=== PATIENT | male | born 1940 ===

== ENCOUNTER 2016-10-22 20:00 | Inpatient (IN) ==
--- OUTSIDE RECORDS SUMMARY | 2016-10-22 22:43 | External Medical Summary | Continuity of Care Document ---
:1940 Author Organization [facility] Allergies Active Description Code Type Severity Reaction Onset Reported/ Identified Relationship Clinical to Patient Status Yes Codeine Drug Nausea 07/25/2011 Aller gy Yes Penicillins Drug Eczema 07/25/2011 Aller (rash) gy Yes codeine NKMA N/A Nausea 09/16/2013 Yes penicillin NKMA N/A Eczema 09/16/2013 (rash) Yes codeine codei Drug Severe NAUSEA/ 10/23/2014 ne Aller HEADACHE gy Yes aspirin aspir Drug Unknown UNKNOWN 07/15/2016 in Aller gy Yes Penicillins Penic Drug Unknown UNKNOWN 07/15/2016 illin Aller s gy Medications Problems Date Dx Coded Attending Type Code Diagnosis Diagnosed By 03/25/2012 Guera Zarate DO Final 272.4 HYPERLIPIDEMIA NEC NOS R 03/25/2012 Guera Zarate DO Final 276.51 DEHYDRATION R 03/25/2012 Guera Zarate DO Final 311 DEPRESSIVE DISORDER NEC R 03/25/2012 Guera Zarate DO Final 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 03/25/2012 Guera Zarate DO Final 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 03/25/2012 Guera Zarate DO Final 414.01 COR -RED CLIFF VESSEL R 03/25/2012 Guera Zarate DO Final 458.0 ORTHOSTATIC HYPOTENSION R 03/25/2012 Guera Zarate DO Final 530.81 ESOPHAGEAL REFLUX R 03/25/2012 Guera Zarate DO Final 781.2 ABNORMALITY OF GAIT R 01/07/2015 Neeraj Ortega MD Final 162.9 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, UNSPECIFIED 01/07/2015 Neeraj Ortega MD Final V72.63 Pre-Procedural Laboratory E Examination 01/07/2015 Neeraj Ortega MD Reason V72.81 PREOPERATIVE E CARDIOVASCULAR EXAMINATION 01/19/2015 Neeraj Ortega MD Final 162.9 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, UNSPECIFIED 01/19/2015 Neeraj Ortega MD Final 285.1 ACUTE POSTHEMORRHAGIC E ANEMIA 01/19/2015 Neeraj Ortega MD Final 298.9 UNSPECIFIED PSYCHOSIS E 01/19/2015 Neeraj Ortega MD Final 338.29 Other chronic pain E 01/19/2015 Neeraj Ortega MD Final 401.9 UNSPECIFIED ESSENTIAL E HYPERTENSION 01/19/2015 Neeraj Ortega MD Final 458.9 HYPOTENSION, UNSPECIFIED E 01/19/2015 Neeraj Ortega MD Final 724.5 BACKACHE, UNSPECIFIED E 01/19/2015 Neeraj Ortega MD Final E937.8 OTHER SEDATIVES AND E HYPNOTICS CAUSING ADVERSE EFFECTS IN THERAPEUTIC USE 03/15/2015 Reason 162.9 MALIGNANT NEOPLASM OF BRONCHUS AND LUNG, UNSPECIFIED 03/15/2015 Final 272.4 OTHER AND UNSPECIFIED HYPERLIPIDEMIA 03/15/2015 Final 294.20 Dementia, Unspecified, in Conditions Classified Elsewhere without Behaviora 03/15/2015 Final 311 DEPRESSIVE DISORDER, NOT ELSEWHERE CLASSIFIED 03/15/2015 Final 345.90 EPILEPSY, UNSPECIFIED, WITHOUT MENTION OF INTRACTABLE EPILEPSY 03/15/2015 Final 401.9 UNSPECIFIED ESSENTIAL HYPERTENSION 03/15/2015 Final 414.01 CORONARY ATHEROSCLEROSIS OF [place] CORONARY ARTERY 03/15/2015 Final 530.81 ESOPHAGEAL REFLUX 03/07/2016 Chris ACOSTA, Dayday V A C34.11 MALIGNANT NEOPLASM OF UPPER LOBE, RIGHT 03/07/2016 Chris ACOSTA, Dayday V A C34.11 MALIGNANT NEOPLASM OF UPPER LOBE, RIGHT 09/08/2016 Chris ACOSTA, Dayday V A C34.11 MALIGNANT NEOPLASM OF UPPER LOBE, RIGHT 09/08/2016 Chris ACOSTA, Dyaday V A C34.11 MALIGNANT NEOPLASM OF UPPER LOBE, RIGHT Procedures Code Description Performed By Performed On 33.24 ENDOSCOPIC BRONCHIAL BX Acosta Overton MD 2014 33.27 CLOSED ENDOSCOPIC BIOPSY OF LUNG Acosta Overton MD 2014 40.11 Biopsy of lymphatic structure 01/09/2015 91098 Insertion of tunneled centrally inserted central 02/14/2015 venous access device, with Results Test Result Range FLUID CYTOLOGY - 10/25/14 08:35 FLUID CYTOLOGY SPECIMEN RECEIVED FLUID CYTOLOGY - 10/25/14 08:35 FLUID CYTOLOGY SPECIMEN RECEIVED GRAM STAIN - 10/25/14 08:35 Microbiology AFB SMEAR - 10/25/14 08:35 Microbiology FUNGUS SMEAR - 10/25/14 08:35 Microbiology CBC W/DIFF - 07/15/16 18:02 BASOPHIL # 0.1 k/cumm 0.0-0.2 BASOPHIL % 1 % 0-1 EOSINOPHIL # 0.1 k/cumm 0.1-0.5 EOSINOPHIL % 1 % 2-4 GRANULOCYTE # 4.5 k/cumm 2.0-9.0 GRANULOCYTE % 50 % 50-75 LYMPHOCYTE # 3.3 k/cumm 1.0-4.0 LYMPHOCYTE % 37 % 20-30 MEAN CELL HGB 32.5 pg 27.0-33.0 MEAN CELL HGB CONCENTRATION 33.0 g/dL 32.0-37.0 MEAN CELL VOLUME 98.3 fl 80.0-100.0 MONOCYTE # 0.9 k/cumm 0.1-1.0 MONOCYTE % 11 % 4-6 RED BLOOD CELL 4.59 m/cumm 4.00-6.00 RED CELL DISTRIBUTION WIDTH 12.4 % 11.0-15.6 WHITE BLOOD CELL 8.9 k/cumm 5.0-10.0 HEMOGLOBIN 14.9 gm/dL 14.0-18.0 HEMATOCRIT 45.1 % 40.0-54.0 PLATELET COUNT 355 k/cumm 150-400 METABOLIC PANEL, BASIC - 07/15/16 18:02 POTASSIUM 3.8 mmol/L 3.5-5.3 EST GFR (MDRD) 42 mL/min > 59 ANION GAP 22 mmol/L 5-15 GLUCOSE 174 mg/dL 70-99 CALCIUM 9.1 mg/dL 8.5-10.1 BLOOD UREA NITROGEN 13 mg/dL 7-20 CREATININE 1.6 mg/dL 0.7-1.3 SODIUM 139 mmol/L 135-148 CHLORIDE 100 mmol/L 98-110 CARBON DIOXIDE 17 mmol/L 21-32 Encounters ACCT No. Visit Discharge Status Pt. Type Provider Facility Loc./Unit Complaint Date/Time [id number] 03/22/2012 03/27/2012 DIS Inpatient [facility] 13:17:00 16:30:00 DO [facility]
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
--- OUTSIDE RECORDS SUMMARY | 2016-10-22 22:43 | External Medical Summary ---
:1940 Author Organization [facility] Address [address] [place] [id number] Care Team Providers Name Role Phone Abdulaziz Price Unavailable Unavailable PROBLEMS Type Condition ICD9-CM Code [id number] Code Onset Condition SNOMED Code Dates Status Problem Esophageal R13.14 Active 21007930 dysphagia Assessment Esophageal R13.14 September, [id number] dysphagia 2017 ALLERGIES Substance Reaction Event Type Date Status Aspirin Unknown Drug Allergy September, Active SOCIAL HISTORY No smoking Hx information available PLAN OF CARE VITAL SIGNS Weight 168.2 lbs 2016-09-30 Heart Rate 68 /min 2016-09-30 Respiratory Rate 16 /min 2016-09-30 Blood pressure systolic 130 mm Hg 2016-09-30 Blood pressure diastolic 74 mm Hg 2016-09-30 MEDICATIONS Medication Instructions Dosage Frequency Start End Duration Status Date Date Omeprazole 20 MG Orally Once a 1 capsule 24h Active day Fish Oil 1000 MG Orally Once a 1 capsule 24h Active day Vitamin B12 100 Orally Once a 1/2 tablet 24h Active MCG day Lamotrigine 100 Orally Twice a 1 tablet 12h Active MG day Vitamin D 400 Orally Once a 3 capsules 24h Active UNIT day Aspirin 81 MG Orally Once a 1 tablet 24h Active day Oxycodone-Acetami Orally three 1 tablet Active nophen 10-325 MG times daily Simvastatin 40 MG Orally Once a 1 tablet in 24h Active day the evening Escitalopram Orally Once a 1 tablet 24h Active Oxalate 20 MG day Donepezil Orally Once a 1 tablet at 24h Active Hydrochloride 10 day bedtime MG RESULTS No Results PROCEDURES Procedure Date Ordered Related Diagnosis Body Site Office Visit, New Pt., Level 5 September 30, 2016 IMMUNIZATIONS No Known Immunizations
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
--- OUTSIDE RECORDS SUMMARY | 2016-10-22 22:44 | External Medical Summary | Referral Summary ---
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, moderate Discharge Disposition: Home or Self Care Attending Physician: Acosta Overton MD Admitting Physician: Acosta Overton MD Vital Signs Most recent to oldest [Reference Range]: 1 Temperature Tympanic [36.6-38.1 degC] 36.8 degC (09/06/14 3:29 PM) Peripheral Pulse Rate [60-100 bpm] 67 bpm (09/06/14 3:29 PM) Respiratory Rate [14-20 br/min] 18 br/min (09/06/14 3:29 PM) Blood Pressure [90-140/60-90 mmHg] 130/70mmHg (09/06/14 3:29 PM) Most recent to oldest [Reference Range]: 1 SpO2 95 % (09/06/14 3:29 PM) Problem List Condition Effective Dates Status Health Status Informant Acute pain(Confirmed) Active Fluid volume deficit(Confirmed)1 Active Ineffective coping Active (individual)(Confirmed)2 Knowledge deficit(Confirmed)3 Active Tissue perfusion Active alteration(Confirmed)4 1Problem added automatically by system based on initiation of Fluid Deficit Plan of Dpkp8Vbywwqh added automatically by system based on initiation of Ineffective Coping Plan of Bqeh4Xqnsyfu added automatically by system based on initiation of Knowledge Deficit Plan of Bgdb7Epxkmgs added automatically by system based on initiation of Tissue Perfusion Cerebral Plan of Care Allergies, Adverse Reactions, Alerts Substance Reaction Severity Status codeine Nausea Active penicillin Eczema (rash) Active Medications alendronate weekly 70 mg, Oral, Thursday, 0 Refill(s) Start Date: 12/01/13 Status: OrderedAricept 10 mg, Oral, Bedtime (once a day), 0 Refill(s) Start Date: 12/01/13 Status: OrderedAspirin Low Dose 81 mg, Oral, Daily, 0 Refill(s) Start Date: 01/31/14 Status: Orderedbudesonide 0.5 mg/2 mL inhalation suspension 2 mL, NEB, BID, # 120 mL, 0 Refill(s) Start Date: 09/06/14 Status: OrderedFish Oil 1,000 mg, Oral, With Lunch, 0 Refill(s) Start Date: 10/21/13 Status: Orderedgabapentin 100 mg, Oral, With BKFT and Dinner, 0 Refill(s) Start Date: 12/01/13 Status: OrderedHome Oxygen (DME) DME Item O2 at 2LPM nocturnal. Diana, See Instructions, # 1 Each, 0 Refill(s) , Supply Special Instructions: O2 at 2LPM nocturnal. [facility] Start Date: 01/31/14 Status: Orderedipratropium See Instructions, ipratopium bromide 0.5mg and albuterol sulfate 3mg., 0 Refill( s) Special Instructions: ipratopium bromide 0.5mg and albuterol sulfate 3mg. Start Date: 09/06/14 Status: OrderedlamoTRIgine 100 mg, Oral, With BKFT and Dinner, 0 Refill(s) Start Date: 12/01/13 Status: OrderedLevaquin 500 mg oral tablet 1 tabs, Oral, q24hr, X 10 days, # 10 tabs, 0 Refill(s), Pharmacy: [facility], 1 tabs Oral q24hr,x10 days Start Date: 09/06/14 Stop Date: 09/16/14 Status: OrderedLexapro 20 mg, Oral, With Lunch, 0 Refill(s) Start Date: 12/01/13 Status: Orderedomeprazole 40 mg, Oral, With Lunch, 0 Refill(s) Start Date: 12/01/13 Status: OrderedPercocet 10/325 1 tabs, Oral, BID, Pain Severe (7-10), 0 Refill(s) Start Date: 12/01/13 Status: OrderedVitamin D3 Oral, 0 Refill(s) Start Date: 01/31/14 Status: OrderedZyPREXA 2.5 mg, Oral, Bedtime (once a day), 0 Refill(s) Start Date: 12/01/13 Status: Ordered Results No data available for this section Immunizations No data available for this section Procedures Procedure Date Related Diagnosis Body Site Back1 Catheterization2 1surgery [id number] cath in 2011 Social History Social History Type Response Smoking Status Former smoker; Type: Cigarettes; Tobacco use per day: Pack; Number of years: 651 1Quit October 2013. Smoked 1/2 to 1 PPD for 65 years. Assessment and Plan Extracted from: Title:Office Visit Note Author:Acosta Overton MD Date:09/06/14 Assessment/Plan 1.COPD, moderate Ordered: Office Visit Level 4 Est 40135 2.Calcified granuloma of lung Ordered: Office Visit Level 4 Est 75175 3.Atelectasis Ordered: Office Visit Level 4 Est 04892 4.Nocturnal hypoxemia Ordered: Office Visit Level 4 Est 02227 Orders: levofloxacin, 1 tabs, Oral, q24hr, X 10 days, # 10 tabs, 0 Refill(s), Pharmacy: [facility], 1 tabs Oral q24hr,x10 days I've recommended course of antibiotics Levaquin for 10 days and a repeat chest x-ray to reassess the atelectasis. He is to continue his current respiratory treatments. I will see him back in the pulmonary medicine clinic in 6 weeks with a chest x-ray.
--- OUTSIDE RECORDS SUMMARY | 2016-10-22 22:44 | External Medical Summary | Referral Summary ---
:1940 Author Organization [facility] Address [address] [place] [address] Care Team Providers Name Role Phone Stacey Esparza Primary Care Physician Encounter [facility] [id number] Date(s): 01/09/15 - 01/14/15 [facility] [address] [place] [address] Final: MALIGNANT NEOPLASM OF BRONCHUS AND LUNG, UNSPECIFIED Final: ACUTE POSTHEMORRHAGIC ANEMIA Final: UNSPECIFIED PSYCHOSIS Final: UNSPECIFIED ESSENTIAL HYPERTENSION Final: HYPOTENSION, UNSPECIFIED Final: BACKACHE, UNSPECIFIED Final: Other chronic pain Final: OTHER SEDATIVES AND HYPNOTICS CAUSING ADVERSE EFFECTS IN THERAPEUTIC USE Discharge Diagnosis: Squamous cell lung cancer Discharge Disposition: 01-Home or Self Care Attending Physician: Neeraj Ortega MD Admitting Physician: Neeraj Ortega MD Vital Signs Most recent to oldest [Reference Range]: 1 Temperature Oral [35.8-37.3 degC] 36.5 degC (01/14/15 12:00 PM) Temperature Tympanic [36.6-38.1 degC] 36.5 degC *LOW* (01/09/15 7:19 AM) Temperature Skin [36-37 degC] 36.1 degC (01/09/15 1:06 PM) Temperature Temporal Artery [36.3-37.8 degC] 36.5 degC (01/12/15 4:00 PM) Peripheral Pulse Rate [60-100 bpm] 70 bpm (01/14/15 12:00 PM) Heart Rate Monitored [60-100 bpm] 74 bpm (01/12/15 5:15 PM) Respiratory Rate [14-20 br/min] 18 br/min (01/14/15 11:00 AM) Blood Pressure [90-140/60-90 mmHg] 114/82mmHg (01/14/15 12:00 PM) Mean Arterial Pressure, Cuff 107 mmHg (01/12/15 5:15 PM) Blood Pressure Invasive [90-140/60-90 mmHg] 93/55mmHg (01/09/15 5:00 PM) Mean Arterial Pressure, Invasive 45 mmHg (01/09/15 6:00 PM) SpO2 91 % (01/14/15 12:00 PM) Problem List Condition Effective Dates Status [...] At Risk for Activity Intolerance Plan of Wmaa6Gguckps added automatically by system based on initiation of Fluid Deficit Plan of Hvdp8Spvgqzz added automatically by system based on initiation of Impaired Gas Exchange Plan of Czwp2Rpevtgf added automatically by system based on initiation of Impaired Skin Integrity Plan of Xlkt7Wybkwcj added automatically by system based on initiation of Ineffective Coping Plan of Dmzy4Ehrmzsh added automatically by system based on initiation of Knowledge Deficit Plan of Eimm9Stbcqbs added automatically by system based on initiation [...] oldest [Reference Range]: 1 WBC [4.8-10.8 10*3/uL] 8.2 10*3/uL (01/14/15 7:34 AM) RBC [4.60-6.20] 3.80 *LOW* (01/14/15 7:34 AM) Hgb [14.0-18.0 gm/dL] 12.3 gm/dL *LOW* (01/14/15 7:34 AM) Hct [42.0-52.0 %] 36.9 % *LOW* (01/14/15 7:34 AM) MCV [82.0-99.0 fL] 97.1 fL (01/14/15 7:34 AM) MCH [27.0-32.0 pg] 32.4 pg *HI* (01/14/15 7:34 AM) MCHC [32.0-36.0 gm/dL] 33.3 gm/dL (01/14/15 7:34 AM) RDW [11.5-14.5 %] 12.0 % (01/14/15 7:34 AM) Platelet [150-400 10*3/uL] 347 10*3/uL (01/14/15 7:34 AM) MPV [9.4-12.3 fL] 9.5 fL (01/14/15 7:34 AM) Chemistry Most recent to oldest [Reference Range]: 1 Sodium Lvl [136-144 mEq/L] 136 mEq/L (01/14/15 7:34 AM) Potassium Lvl [3.6-5.1 mEq/L] 4.0 mEq/L1 (01/14/15 7:34 AM) Chloride [99-109 mEq/L] 100 mEq/L (01/14/15 7:34 AM) CO2 [22-32 mEq/L] 27 mEq/L (01/14/15 7:34 AM) AGAP [3-20] 9 (01/14/15 7:34 AM) BUN [4-20 mg/dL] 13 mg/dL (01/14/15 7:34 AM) Glucose Lvl [70-100 mg/dL] 126 mg/dL *HI* (01/14/15 7:34 AM) Creatinine Lvl [0.64-1.27 mg/dL] 1.02 mg/dL (01/14/15 7:34 AM) eGFR [>60] >602 (01/14/15 7:34 AM) Calcium Lvl [8.6-10.0 mg/dL] 8.9 mg/dL (01/14/15 7:34 AM) Blood Glucose, Capillary [70-100 mg/dL] 89 mg/dL (01/09/15 7:15 AM) 1Result Comment: Hemolyzed specimen. The following test may be affected: Potassium.2Result Comment: Multiply eGFR results by 1.21 for race. Immunizations No data available for this section Procedures Procedure Date Related Diagnosis Body Site Insertion Implantable Venous Access Port1 02/14/15 Thoracoscopy2 01/09/15 arm trauma3 Back4 Biopsy of lymph node Catheterization5 neck surgery6 right knee surgery7 1auto-populated from documented surgical rduq2qdmx-rvwwexupo from documented surgical avuf6gsl attack and trauma to right arm and had two surgeries and good pkgact2ijpzpfs L73tzmyl cath in [id number] has JVS5effex Social History Social History Type Response Smoking Status Former smoker; Type: Cigarettes; Tobacco use per day: Pack; Number of years: 651 1Quit October 2013. Smoked 1/2 to 1 PPD for 65 years. Assessment and Plan No data available for this section
--- OUTSIDE RECORDS SUMMARY | 2016-10-22 22:44 | External Medical Summary | Continuity of Care Document ---
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 Family History Family Member Diagnosis Age At Onset Status Unknown Social History Social History Element Description Quantity Unknown Allergies, Adverse Reactions, Alerts Substance Reaction Severity Status Unknown Medications Medication Instructions Dosage Effective Dates (start Status - stop) oxycodone-acetaminophen take 1 capsule by oral 0 - Active 5 mg-500 mg capsule route every 6 hours as needed diazepam 5 mg/mL Oral take 1 milliliter (5MG) 5 MG - Active Concentrate by oral route 2 times every day as needed citalopram 40 mg tablet take 1 tablet (40MG) by 40 MG - Active oral route every day simvastatin 40 mg tablet take 1 Tablet (40MG) by 40 MG - Active oral route every day in the evening Immunizations Vaccine Date Status Comments Unknown Results Test Name Date and Time Measure Units Reference Range Abnormal Flag Comments Unknown Vital Signs Date / Time: Height Weight Pulse Rate Blood Pressure Temperature Unknown Procedures Procedure Date Unknown Encounters Encounter Location Date Patient Visit [facility] Patient Visit [facility] Patient Visit [facility] Advance Directives Directive Effective Date Unknown
--- OUTSIDE RECORDS SUMMARY | 2016-10-22 22:44 | External Medical Summary | Referral Summary ---
:1940 Author Organization [facility] Address [address] [place] [address] Care Team Providers Name Role Phone Melaniemarce Stacey Ca Primary Care Physician Encounter [facility] Date(s): 10/11/14 - 10/11/14 [facility] [address] [place] [address]- [place] Discharge Diagnosis: Cough Discharge [...] At Risk for Activity Intolerance Plan of Gclp1Uujbgsy added automatically by system based on initiation of Fluid Deficit Plan of Qlnu0Rvtgbzj added automatically by system based on initiation of Impaired Gas Exchange Plan of Aeaq3Kqxoggg added automatically by system based on initiation of Impaired Skin Integrity Plan of Bpto5Nlnqmyt added automatically by system based on initiation of Ineffective Coping Plan of Xqqv4Nmlpmkt added automatically by system based on initiation of Knowledge Deficit Plan of Rvaj4Cmzgrum added automatically by system based on initiation [...] Daily, 0 Refill(s) Start Date: 01/04/15 Status: OrderedoxyCODONE-acetaminophen 10 mg-325 mg oral tablet 1-2 tabs, Oral, q4hr, Pain Severe (7-10), # 40 tabs, 0 Refill(s) Start Date: 01/14/15 Stop Date: 04/16/15 Status: OrderedProtonix 40 mg oral delayed release [...] right knee surgery7 1auto-populated from documented surgical aavy2peqt-dwjzfwjvg from documented surgical wkxi7jwo attack and trauma to right arm and had two surgeries and good ntwgvo0asykejt O90ioywf cath in [id number] has GQU6jmjfe Social History Social History Type Response Smoking [...]
--- OUTSIDE RECORDS SUMMARY | 2016-10-22 22:44 | External Medical Summary | Referral Summary ---
:1940 Author Organization [facility] Address [address] [place] [address] Care Team Providers Name Role Phone MelaniemarceStacey Primary Care Physician Encounter [facility] Date(s): 10/31/14 - 10/31/14 [facility] [address] [place] [address]- [place] Discharge Diagnosis: Smoking history Discharge Diagnosis: COPD, moderate Discharge Diagnosis: Squamous cell lung cancer Discharge Disposition: 01-Home or Self Care Attending Physician: Acosta Overton MD Admitting Physician: Acosta Overton MD Vital Signs Most recent to oldest [Reference Range]: 1 Peripheral Pulse Rate [60-100 bpm] 70 bpm (10/31/14 3:00 PM) Respiratory Rate [14-20 br/min] 20 br/min (10/31/14 3:00 PM) Blood Pressure [90-140/60-90 mmHg] 120/60mmHg (10/31/14 3:00 PM) SpO2 94 % (10/31/14 3:00 PM) Problem List Condition Effective Dates Status [...] At Risk for Activity Intolerance Plan of Rgts0Gempapt added automatically by system based on initiation of Fluid Deficit Plan of Txsk7Mzyjwus added automatically by system based on initiation of Impaired Gas Exchange Plan of Ohiz2Jbkwksn added automatically by system based on initiation of Impaired Skin Integrity Plan of Doim4Ofgiogz added automatically by system based on initiation of Ineffective Coping Plan of Ebfl5Knieasu added automatically by system based on initiation of Knowledge Deficit Plan of Fyls9Igwihaj added automatically by system based on initiation [...] right knee surgery7 1auto-populated from documented surgical ammk7axbj-xgbexgjmr from documented surgical ktyl4gqm attack and trauma to right arm and had two surgeries and good bcrhhg1gpiwfos Q54ayelp cath in [id number] has DNM1rbtfj Social History Social History Type Response Smoking Status Former smoker; Type: Cigarettes; Tobacco use per day: Pack; Number of years: 651 1Quit October 2013. Smoked 1/2 to 1 PPD for 65 years. Assessment and Plan Extracted from: Title:Office Visit Note Author:Acosta Overton MD Date:11/02/14 Assessment/Plan 1.Squamous cell lung cancer 2.Smoking history 3.COPD, moderate I've recommended further evaluation to include a PET scan to assess the extent of the patient's cancer. Following the PET scan we will considersurgical evaluation and/or oncology evaluation. Reid guzmán did state that he would prefer not to receive chemotherapy if possible however we we'll discuss this further following his PET scan.
--- OUTSIDE RECORDS SUMMARY | 2016-10-22 22:44 | External Medical Summary | Continuity of Care Document ---
:1940 Author Organization Ambulatory Address [address] [place] [address] Payers Payer name Insurance type Covered libertarian ID Authorization(s) Unknown Problems Condition Effective Dates [...] Unknown Encounters Encounter Location Date Patient Visit [facility] Patient Visit [facility] Patient Visit [facility] Advance Directives Directive Effective Date Unknown
--- OUTSIDE RECORDS SUMMARY | 2016-10-22 22:44 | External Medical Summary | Referral Summary ---
:1940 Author Organization [facility] Address [address] [place] [address] Care Team Providers Name Role Phone Stacey Esparza Primary Care Physician Encounter [facility] [id number] Date(s): 02/14/15 - 02/14/15 [facility] [address] [place] [address] [place] Discharge Disposition: 01-Home or Self Care Attending [...] At Risk for Activity Intolerance Plan of Igqn6Pfyxxxy added automatically by system based on initiation of Fluid Deficit Plan of Syfs0Gfpiimp added automatically by system based on initiation of Impaired Gas Exchange Plan of Wkjk7Qgicijn added automatically by system based on initiation of Impaired Skin Integrity Plan of Gxdp8Azowcyq added automatically by system based on initiation of Ineffective Coping Plan of Mcxi5Elfaqdy added automatically by system based on initiation of Knowledge Deficit Plan of Ycfl0Fjtdwrw added automatically by system based on initiation [...] right knee surgery7 1auto-populated from documented surgical ivao1ndag-twaoglsvv from documented surgical jdxf8wme attack and trauma to right arm and had two surgeries and good wqmbyv6abqiogu D97bxsge cath in [id number] has GGZ2dxmxp Social History Social History Type Response Smoking Status Former smoker; Type: Cigarettes; Tobacco use per day: Pack; Number of years: 651 1Quit October 2013. Smoked 1/2 to 1 PPD for 65 years. Assessment and Plan No data available for this section
[2016-10-23 01:07] VITALS: BMI 23.8
[2016-10-23] MEDS: OMEPRAZOLE 20 MG CAPSULE PO SCH (07:21)
[2016-10-23] MEDS: BUDESONIDE INH.SOLN 0.5mg/2ml NEB IH SCH ×3 (07:25→18:50)
[2016-10-23] MEDS: OMEGA-3 ACID ESTERS 1 GM CAPSULE PO SCH (09:00)
[2016-10-23] MEDS: LAMOTRIGINE 100 MG TABLET PO SCH ×2 (09:00→21:06)
[2016-10-23] MEDS: ESCITALOPRAM 20 MG TABLET PO SCH (09:00)
[2016-10-23] MEDS: CYANOCOBALAMIN (B-12) 500mcg TABLET PO SCH (09:01)
[2016-10-23] MEDS: ASPIRIN 81 MG CHEWABLE TABLET PO SCH (09:06)
[2016-10-23] MEDS: MULTI-VITAMIN + MINERAL TABLET PO SCH (09:26)
[2016-10-23] MEDS: ALBUTEROL/IPRATROPIUM 2.5mg-0.5mg/3ml NEB AEROSOL SCH ×4 (11:03→18:50)
--- NOTE | 2016-10-23 15:30 | History & Physical Report ---
<Clau Huerta Anthony - Last Filed: 10/23/16 15:26> History of Present Illness Date: Chief complaint: suicidal ideation HPI: Victor Manuel Raygoza is a 75 y/o male with a hx of dementia, depression, seizure d/o (frequency has been increasing - 2 sz in a week and has had about 4 seizures in the last 3 months), lung cancer, and CAD who was admitted to [facility] on because he has been making suicidal and morbid statements. [place] police, and PD decided to take him home. However, on the way he had a seizure, and then he was transported to [facility], where he was admitted. There his CT of his head was negative; an MRI was ordered, which was negative for stroke; positive for mild atrophy and modereate small vessel ischemic disease; mild b/l mastoid effusions.. Hgb was 11.8. He had mild hypokalemia (K 3.2) and mild KADEN (cr 1.6), both of which resolved. Psychiatric evaluation was recommended, thus he was dismissed from [facility] and admitted to [facility]. I saw Mr. Raygoza in the afternoon of 10/23. His was also present, and she provided most of his history and HPI. Victor Manuel did not speak much, and at times seemed to have trouble following the conversation. She reports that he's had poor oral intake lately. He's had abdominal pain and vomiting and diarrhea. He' s lost some weight. He states that he's been weak and dizzy. No reports of chest pain,cough, fevers, or shortness of breath. His states that he "dribbles" and thinks his prostate is swollen. No leg swelling. He has a small cut on his right forearm that occurred either during the seizure or sometime afterwards - a dressing has been applied. Review of Systems ROS unobtainable: due to mental status All systems: reviewed and no additional remarkable complaints except as stated - Constitutional Constitutional: Present: as per HPI - EENMT Nose: Absent: obstruction Mouth/Throat: Absent: sore throat - Cardiovascular Cardiovascular: Absent: chest pain Vascular: Absent: pedal edema - Respiratory Respiratory: Absent: cough, dyspnea - Gastrointestinal Gastrointestinal: Present: as per HPI, abdominal pain, diarrhea, vomiting - Musculoskeletal Musculoskeletal: Present: back pain - Neurological Neurological: Present: as per HPI, confusion, convulsions. 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 Went for surgery to remove lung cancer but it had spread to lymph nodes so surgery was aborted. knee arthroscopy. hand surgery. appendectomy. cataract surgery. lumbar laminectomy. cervical discectomy. kyphoplasty. skin cancer removed from ear Family History: Mother had an unknown form of cancer. Records from [facility] also report CAD and dementia. Father - unknown - Social History Smoking status: Former smoker (60 years - 0.5-1 ppd) Substance use type: does not use Alcohol intake frequency: does not drink Social history: PCP - Dr. Luciana Esparza Neuro - Dr. Berrios Medications Home Medications Medication Instructions Recorded Confirmed Type Acetaminophen 650 mg PO Q6H PRN 10/22/16 10/22/16 History Albuterol/Ipratropium [Duoneb] 1 unit AEROSOL QID 10/22/16 10/22/16 History Aspirin Chewable [ASA] 81 mg PO DAILY 10/22/16 10/22/16 History Budesonide 0.5 mg IH BID 10/22/16 10/22/16 History Cyanocobalamin (B-12) [Vit B-12] 500 mcg PO DAILY 10/22/16 10/22/16 History Donepezil [Aricept] 10 mg PO HS 10/22/16 10/22/16 History Escitalopram [Lexapro] 20 mg PO DAILY 10/22/16 10/22/16 History Lamotrigine [Lamictal] 1 tab PO BID 10/22/16 10/22/16 History Multi-Vitamin + Mineral 1 tab PO DAILY 10/22/16 10/22/16 History [Therapeutic - M] [place]-3/Dha/Epa/Fish Oil [[place]-3 1,000 mg PO DAILY 10/22/16 10/22/16 History Fish Oil 1,000 mg Sfgl] Omeprazole [Prilosec] 1 cap PO ACB 10/22/16 10/22/16 History Oxycodone HCl 10 mg PO TID PRN 10/22/16 10/22/16 History Simvastatin [Zocor] 40 mg PO HS 10/22/16 10/22/16 History Allergies Allergy/AdvReac Type Severity Reaction Status Date / Time aspirin AdvReac Mild Nausea Verified 10/23/16 02:19 codeine AdvReac Unknown Nausea Verified 10/23/16 02:20 Exam Vital Signs: Temp Pulse Resp BP Pulse Ox 98.2 F 75 16 179/78 H 98 10/23/16 13:14 10/23/16 13:14 10/23/16 15:00 10/23/16 08:00 10/23/16 15:00 Height: 1.75 m Weight: 73.4 kg Body Mass Index: 23.8 - Constitutional Present: no acute distress, well nourished, well developed, thin - Routine HEENT Exam Head: Present: normocephalic, atraumatic Eye: Present: PERRL. Absent: conjunctival icterus, scleral injection ENT: Present: mucous membranes moist, dentition normal - Routine Neck Exam Present: supple - Routine Respiratory Exam Present: CTA bilaterally - Routine Cardiovascular Exam Present: S1, S2 - Routine Abdominal Exam Present: soft, normoactive bowel sounds, non distended, non tender - Routine Extremities Exam Present: no edema, non tender, pulses intact, normal capillary refill - Routine Skin Exam Present: intact, dry, warm, wounds (mepilex dressing to right forearm) - Routine Neurological Exam Present: alert - Routine Psychiatric Exam Absent: normal affect (flat) Results - Labs CBC & Chem 7: 10/23/16 07:15 10/23/16 07:15 Assessment and Plan (1) Dementia Current visit: Yes Status: Chronic (2) Normocytic anemia Current visit: Yes Status: Chronic (3) CAD (coronary artery disease) Current visit: Yes Status: Chronic (4) COPD (chronic obstructive pulmonary disease) Current visit: Yes Status: Chronic (5) Lung cancer Current visit: No Status: Resolved (6) IBS (irritable bowel syndrome) Current visit: Yes Status: Chronic (7) Anxiety Current visit: Yes Status: Chronic (8) Depression Current visit: Yes Status: Chronic (9) Seizure disorder Current visit: Yes Status: Chronic Assessment and Plan: Agree with admission 1. Records reviewed from [facility] -mild hypokalemia and mild KADEN were corrected -CT head and MRI brain did not show acute findings 2. Sz d/o -monitor and continue lamictal -consider increasing antiepileptics -consider neuro consult 3. IBS - reports vomiting and diarrhea and weight loss -check prealbumin -monitor intake 4. chronic conditions - CAD, HLD, COPD, BPH, normocytic anemia -continue home meds & monitor 5. Lung cancer - s/p radiation and chemo (2014) 6. Provide safe, supportive environment Sepsis Assessment - Evaluation Sepsis screening result: No Definite Risk - Focused Exam Vital Signs Temp Pulse Resp BP Pulse Ox 10/23/16 15:00 16 98 10/23/16 13:14 98.2 F 75 16 95 10/23/16 10:50 16 10/23/16 08:00 98.2 F 75 12 179/78 H 95 10/23/16 07:25 14 95 Hospital Course Summary Disclaimer: The visit summary below is not to be considered part of the above Progress Note. Hospital Course: 10/23/16 15:54 Agree with admission 1. Records reviewed from [facility] -mild hypokalemia and mild KADEN were corrected -CT head and MRI brain did not show acute findings 2. Sz d/o -monitor and continue lamictal -consider increasing antiepileptics -consider neuro consult 3. IBS - reports vomiting and diarrhea and weight loss -check prealbumin -monitor intake 4. chronic conditions - CAD, HLD, COPD, BPH, normocytic anemia -continue home meds & monitor 5. Lung cancer - s/p radiation and chemo (2014) 6. Provide safe, supportive environment <Darnell Suarez - Last Filed: 10/23/16 17:40> History of Present Illness Date: 10/23/16 Date: Exam Vital Signs: Temp Pulse Resp BP Pulse Ox 98.0 F 104 H 20 137/68 93 10/23/16 15:46 10/23/16 15:46 10/23/16 15:46 10/23/16 15:46 10/23/16 15:46 Height: 1.75 m Weight: 73.4 kg Results - Labs CBC & Chem 7: 06/08/17 07:15 10/23/16 07:15 Assessment and Plan (1) Dementia Current visit: Yes Status: Chronic (2) Normocytic anemia Current visit: Yes Status: Chronic (3) CAD (coronary artery disease) Current visit: Yes Status: Chronic (4) COPD (chronic obstructive pulmonary disease) Current visit: Yes Status: Chronic (5) Lung cancer Current visit: No Status: Resolved (6) IBS (irritable bowel syndrome) Current visit: Yes Status: Chronic (7) Anxiety Current visit: Yes Status: Chronic (8) Depression Current visit: Yes Status: Chronic (9) Seizure disorder Current visit: Yes Status: Chronic Assessment and Plan: Have independently interviewed and examined pt. Chart reviewed. Case discussed with my LEGAL DOCUMENT SPECIALIST. Above care plan developed with my supervision; agree with above. Admitted to [facility] with above noted concern. Pt reports bowel problems- urgent loose stool. Some ab cramping and bloating. Has been using Imodium at home. Did have nausea. Notes decrease to appetite. Also notes TRIPLETT-frontal to side of head. Nose contested. Jaw will 'pop' out causing pain-chiropractic manipulation will improve his symptoms but not completely resolve the problem. Reports PCP offered to refer him to see surgeon, but pt declined as he 'doesn't want any surgery.' Urine slow and sometimes uncomfortable. Lungs: decreased bilaterally; no crackles or wheezes. CV: regular AB: soft nt/nd EXT: thin and without edema MSE: awake alert, answers questions with short phrases. Plan: Agree with admission to [facility] for further psychiatric evaluation and treatment. Psychiatry to manage and adjust psychoactive medications. Will start routine Fibercon to help bowel regularity and function-may use Questran as needed for loose stool. Trial of nasal saline to help sinus congestion-watch for tolerability issues. Continue home medications. Encourage [facility] floor activities. Provide safe, supportive environment. Pt is medically stable for [facility] floor activities. Sepsis Assessment - Focused Exam Vital Signs Temp Pulse Resp BP Pulse Ox 10/23/16 15:46 98.0 F 104 H 20 137/68 93 10/23/16 15:00 16 98 10/23/16 13:14 98.2 F 75 16 95 10/23/16 10:50 16 10/23/16 08:00 98.2 F 75 12 179/78 H 95 10/23/16 07:25 14 95 Hospital Course Summary Disclaimer: The visit summary below is not to be considered part of the above Progress Note.
[2016-10-23] MEDS ORDERED: CHOLESTYRAMINE LIGHT 4 G PACKET PO PRN (16:32)
[2016-10-23] MEDS: DONEPEZIL 10 MG TABLET PO SCH (21:06)
[2016-10-23] MEDS: SIMVASTATIN 40 MG TABLET PO SCH (21:06)
--- NOTE | 2016-10-23 21:14 | 24 Hour Neuropsychiatic Eval ---
Date of Admission: 10/22/16 20:00 Chief complaint: SI History of Present Illness: Patient is a 75-year-old , retired male who was admitted to [facility] on 10/22/16 due to SI and morbid statements. Patient's reports increasing depression over past 6 months, loss of interest/enjoyment in things. Patient lives with in [place]. [place] police and said he wanted to ride the train. Shortly after he had a seizure, so was taken to [facility] and admitted. CT of head was negative, MRI of head reportedly negative for stroke - positive for mild atrophy, moderate small vessel ischemic disease. Patient has past diagnoses of dementia, depression, a seizure disorder (not well -controlled, 4 SZs in past 3 months), lung cancer s/p chemotherapy and CAD. Was previously being seen by dr. Berrios and released from his care ~6 months ago. On interview, patient is cooperative but restricted affect and cannot relay meaningful history. He is able to say that he feels down/depressed and that he doesn't have any desire to live anymore. When asked about harming others, he answers yes to his [id number] (who was recently ill and taken off of life support, was an alcoholic). However, he made a comment to about [facility] and [facility] his with him. states that he had recurrent depression in the past and was hospitalized at [facility] in the past for depression, but he has never had any suicide attempts to her knowledge. She denies any history of manic behavior. reports he is sensitive to sounds but it is unclear if he has had any AH. Patient and moved here in 2009 to be close to son but he has taken some of their money and moved out of state; they have a limited support system now. reports that they do not have any money left to move back somewhere else and do not have many friends. PCP: Dr. Luciana Esparza [facility]: 5 upon admission Psychiatric ROS: positive for impulsivity/wandering, depression, decreased energy, anhedonia, hopelessness, sensitivity to sound - unclear whether having AH per , decreased appetite and weight loss, morbid statements. Patient is sleeping well overnight. Depression: Crying Spells, Loss of Interest in Activities, Isolating Oneself From Friends and Family, Increased Fatigue, Loss of Energy, Recurrent Thoughts of or Suicide, Difficulty Concentrating, Changes in Appetite, Significant Weight Loss, Hopelessness, Unhappiness Dementia: Memory Impairment, Poor Executive Functioning [facility] Patient Stated Medical History Dementia Yes Peripheral Neuropathy Yes Seizures Yes Cataracts Yes Coronary Artery Disease Yes Chronic Obstructive Pulmonary Yes Disease (COPD) Tuberculosis Yes Other Respiratory Yes: Lung Cancer Gastroesophageal Reflux Yes Disease Other GI Yes: IBS Hx Benign Prostatic Yes Hyperplasia Hx Incontinence Yes Hx Urinary Tract Infection Yes Osteoarthritis Yes Depression Yes Surgical History: Heart catheterization and stent. Went for surgery to remove lung cancer but it had spread to lymph nodes so surgery was aborted. knee arthroscopy. hand surgery. appendectomy. cataract surgery. lumbar laminectomy. cervical discectomy. kyphoplasty. skin cancer removed from ear - Social History Smoking status: Former smoker Substance use type: does not use Household members: spouse Current occupational status: retired Current residence: Apartment/Private Home Review of Systems ROS unobtainable: due to mental status - Constitutional Constitutional: Present: as per HPI - EENMT Nose: Absent: obstruction Mouth/Throat: Absent: sore throat - Cardiovascular Cardiovascular: Absent: chest pain Vascular: Absent: pedal edema - Respiratory Respiratory: Absent: cough, dyspnea - Gastrointestinal Gastrointestinal: Present: as per HPI, abdominal pain, diarrhea, vomiting - Musculoskeletal Musculoskeletal: Present: back pain - Neurological Neurological: Present: as per HPI, confusion, convulsions. Absent: abnormal gait - Psychiatric Psychiatric: Present: as per HPI, anhedonia, auditory hallucinations (unclear), behavioral changes, depression, difficulty concentrating, homicidal ideation ( questionable), hopelessness, suicidal ideation. Absent: abnormal sleep pattern - Hematologic/Lymphatic Hematologic/Lymphatic: Present: easy bleeding - Allergic/Immunologic Allergic/Immunologic: Absent: seasonal rhinorrhea Mental Status Exam Vitals: Last Vital Signs Temp 98.0 F 10/23/16 15:46 Pulse 104 H 10/23/16 15:46 Resp 18 10/23/16 19:15 BP 137/68 10/23/16 15:46 Pulse Ox 97 10/23/16 19:15 Height: 1.75 m Weight: 73.4 kg - Mental Status Exam Muscle Strength/Tone: Weak Dressing: Casual Grooming: Fair Attitude: Cooperative Motor Activity: Retardation Eye Contact: Fair Speech: Slowed Volume: Soft Rhythm: Mumbled, Paucity of Language Orientation: Disoriented to time, Oriented to time Mood: Depressed Rate of Thoughts: Delayed Thought Organization: Confused Associations: Illogical Abstract Reasoning: Impaired, concrete Thought Content: Ruminations, Hopelessness, Helplessness Perception/Psychotic: Other (Unclear whether may be having AH) Language: Naming Impaired Fund of Knowledge: Poor fund of knowledge Memory: Poor-immediate, Poor-recent Suicidal Ideation: Persistent, Other (was found on [place] by police) Homicidal Ideation: Intermittent Insight: Impaired Judgement: Impaired Impulse Control: Fair - Laboratory Result Diagrams: 10/23/16 07:15 10/23/16 07:15 Laboratory Results - last 24 hr 10/22/16 10/23/16 10/23/16 23:20 07:15 07:15 WBC 5.7 RBC 3.87 L Hgb 12.6 L Hct 37.8 L MCV 97.7 MCH 32.6 MCHC 33.3 RDW Std Deviation 40.9 Plt Count 305 MPV 8.7 L Immature Gran % (Auto) 0.2 Neut % (Auto) 63.0 Lymph % (Auto) 23.7 [place] % (Auto) 12.0 H Eos % (Auto) 0.7 Baso % (Auto) 0.4 Neut # 3.6 Lymph # 1.3 [place] # 0.7 Eos # 0.0 Baso # 0.0 Abs Immat Gran (auto) 0.01 Turbidity 20 Sodium 143 Potassium 3.8 Chloride 104 Carbon Dioxide 26 Anion Gap 13 BUN 10.0 Creatinine 0.9 GFR Calculation 82 BUN/Creatinine Ratio 11 Glucose 94 Hemoglobin A1c 5.3 L Calculated Osmolality 274 Calcium 9.0 Total Bilirubin 0.70 Icterus Index 2 AST 20 ALT 31 Alkaline Phosphatase 86 Total Protein 6.5 Albumin 4.0 Globulin 2.5 Albumin/Globulin Ratio 1.6 Prealbumin 28.2 TSH 0.53 Specimen Hemolysis 15 Ur Collection Type Not provided Urine Color Yellow Urine Clarity Sl cloudy Urine pH 5.5 Ur Specific [place] 1.015 Urine Protein Negative Urine Glucose (UA) Negative Urine Ketones Trace A Urine Occult Blood 3+ A Urine Nitrate Negative Urine Bilirubin Negative Urine Urobilinogen 0.2 Ur Leukocyte Esterase 2+ A Urine RBC 10-20 H Urine WBC 3-5 Urine Bacteria 1+ H Ur Culture Indicated? Cancelled Urinalysis Comment Cancelled Assessment and Plan (1) Depressive disorder Problem details: Major depressive disorder, recurrent, severe - rule out psychotic features. Patient has persistent SI, was [place] police. Current visit: Yes Status: Chronic (2) Major neurocognitive disorder Current visit: Yes Status: Chronic (3) Seizure disorder Problem details: Poorly controlled on Lamictal 100mg PO BID Current visit: Yes Status: Chronic (4) IBS (irritable bowel syndrome) Current visit: Yes Status: Chronic (5) COPD (chronic obstructive pulmonary disease) Current visit: Yes Status: Chronic (6) Normocytic anemia Current visit: Yes Status: Chronic (7) Lung cancer Problem details: History of lung cancer, s/p chemotherapy Current visit: No Status: Resolved (8) CAD (coronary artery disease) Current visit: Yes Status: Chronic 10/23/16: Maintain suicide/safety/elopement precautions. Monitor patient's behavior, review previous medical records. Consulted hospitalist as well as neurologist for seizure disorder. Review labs from admission. Continue home medications for the time being - will likely need change in antidepressant, AED.
[2016-10-23] MEDS: SALINE 0.65% NASAL SPRAY 44 ML BOTTLE EA NOSTRIL SCH (21:26)
[2016-10-24] MEDS: OMEPRAZOLE 20 MG CAPSULE PO SCH (08:28)
[2016-10-24] MEDS: CALCIUM POLYCARBOPHIL 625 MG TABLET PO SCH ×3 (08:28→21:28)
[2016-10-24] MEDS: SALINE 0.65% NASAL SPRAY 44 ML BOTTLE EA NOSTRIL SCH ×4 (08:29→20:38)
[2016-10-24] MEDS: ESCITALOPRAM 20 MG TABLET PO SCH (08:30)
[2016-10-24] MEDS: CYANOCOBALAMIN (B-12) 500mcg TABLET PO SCH (08:30)
[2016-10-24] MEDS: LAMOTRIGINE 100 MG TABLET PO SCH ×2 (08:30→20:38)
[2016-10-24] MEDS: MULTI-VITAMIN + MINERAL TABLET PO SCH (08:30)
[2016-10-24] MEDS: OMEGA-3 ACID ESTERS 1 GM CAPSULE PO SCH (08:30)
[2016-10-24] MEDS: ASPIRIN 81 MG CHEWABLE TABLET PO SCH (08:31)
[2016-10-24] MEDS: ALBUTEROL/IPRATROPIUM 2.5mg-0.5mg/3ml NEB AEROSOL SCH ×4 (09:07→20:15)
[2016-10-24] MEDS ORDERED: MAG-AL + SIM ORAL LIQUID 30ml PO PRN (09:25)
[2016-10-24] MEDS: LORazepam 0.5 MG TABLET PO PRN ×2 (10:39→18:24)
[2016-10-24] MEDS: BUDESONIDE INH.SOLN 0.5mg/2ml NEB IH SCH ×2 (12:06→20:15)
--- NOTE | 2016-10-24 14:53 | Neuropsych Progress Note ---
[facility] Subjective Date: 10/24/16 - Sujective/Severity of Illness Medications: Acetaminophen (Tylenol) 650 mg PO Q6H PRN PRN Reason: Pain Al Hydroxide/Mg Hydroxide (Maalox Plus) 30 ml PO Q6H PRN PRN Reason: Indigestion Last Admin: 10/24/16 09:35 Dose: 30 ml Albuterol/Ipratropium (Duoneb) 3 ml AEROSOL QID [facility] Last Admin: 10/24/16 12:06 Dose: 3 ml Aspirin (Asa) 81 mg PO DAILY [facility] Last Admin: 10/24/16 08:31 Dose: 81 mg Budesonide (Pulmicort Inhalation) 0.5 mg IH BID [facility] Last Admin: 10/24/16 12:06 Dose: 0.5 mg Calcium Polycarbophil (Fiber-Lax) 625 mg PO BID [facility] Last Admin: 10/24/16 08:28 Dose: 625 mg Cholestyramine Resin (Questran Light) 4 g PO Q6H PRN PRN Reason: Diarrhea Cyanocobalamin (Vit B-12) 500 mcg PO DAILY [facility] Last Admin: 10/24/16 08:30 Dose: 500 mcg Donepezil HCl (Aricept) 10 mg PO HS [facility] Last Admin: 10/23/16 21:06 Dose: 10 mg Escitalopram Oxalate (Lexapro) 20 mg PO DAILY [facility] Last Admin: 10/24/16 08:30 Dose: 20 mg Lamotrigine (Lamictal) 100 mg PO BID [facility] Last Admin: 10/24/16 08:30 Dose: 100 mg Lorazepam (Ativan Inj) 0.5 mg IM Q6H PRN PRN Reason: Extreme agitation Lorazepam (Ativan) 0.5 mg PO Q6H PRN PRN Reason: Extreme agitation Last Admin: 10/24/16 10:39 Dose: 0.5 mg Multivitamins/Minerals (Therapeutic - M) 1 tab PO DAILY [facility] Last Admin: 10/24/16 08:30 Dose: 1 tab Evzmj-3-Trph Ethyl Esters (Lovaza) 1 gm PO DAILY [facility] Last Admin: 10/24/16 08:30 Dose: 1 gm Omeprazole (Prilosec) 20 mg PO ACB [facility] Last Admin: 10/24/16 08:28 Dose: 20 mg Oxycodone HCl (Roxicodone *Ir*) 10 mg PO TID PRN PRN Reason: Pain Simvastatin (Zocor) 40 mg PO HS [facility] Last Admin: 10/23/16 21:06 Dose: 40 mg Sodium Chloride (Deep Sea Nasal Moisturizing [place]) 2 spray EA NOSTRIL QID [facility] Last Admin: 10/24/16 12:12 Dose: 2 spray Subjective: Patient seen and chart reviewed. Case discussed with treatment team. On interview, patient is pleasant but very confused and does not give meaningful answers to my questions. Instead talks about how putting a piece of wood in the washing machine is helpful, me drinking alcohol and standing on my head, etc. Per staff, patient has been paranoid and guarded through the day, as well as hearing AH (including sirens) that he frequently asks staff to "cut off. " Patient does say mood is terrible and continues to endorse SI, intermittent HI towards others. Not yet seen by neurology for recommendations on better control of seizures. Patient slept well overnight. VSS. Patient is eating well. Psychotropic PRNs required in the past 24 hours: none. SLUMS 5 upon admission Vitamin B12 WNL at 970 Folate level WNL at 20 Start Time: 15:30 Stop Time: 15:50 Mental Status Exam Vitals: Last Vital Signs Temp 97.8 F 10/23/16 19:51 Pulse 102 H 10/24/16 08:00 Resp 14 10/24/16 11:45 BP 165/84 H 10/24/16 08:00 Pulse Ox 94 10/24/16 08:45 Height: 1.75 m Weight: 73.4 kg - Mental Status Exam Muscle Strength/Tone: Weak Dressing: Casual Grooming: Fair Attitude: Guarded Motor Activity: Retardation Eye Contact: Fair Speech: Slowed Volume: Soft Rhythm: Mumbled, Paucity of Language Orientation: Disoriented to time, Oriented to time Mood: Depressed Rate of Thoughts: Delayed Thought Organization: Disorganized, Confused Associations: Illogical Abstract Reasoning: Impaired, concrete Thought Content: Ruminations, Hopelessness, Helplessness, Paranoia Perception/Psychotic: Other (Unclear whether may be having AH) Language: Naming Impaired Fund of Knowledge: Poor fund of knowledge Memory: Poor-immediate, Poor-recent Suicidal Ideation: Persistent, Other (was found on [place] by police) Homicidal Ideation: Intermittent Insight: Impaired Judgement: Impaired Impulse Control: Fair - Laboratory Result Diagrams: 10/23/16 07:15 10/23/16 07:15 Laboratory Results - last 24 hr 10/23/16 07:15 Vitamin B12 970 H Folate 20.0 Assessment and Plan (1) Major depressive disorder, recurrent, severe with psychotic features Current visit: Yes Status: Acute (2) Major neurocognitive disorder Problem details: Likely due to multiple etiologies - vascular and seizures Current visit: Yes Status: Chronic (3) Seizure disorder Problem details: Poorly controlled on Lamictal 100mg PO BID Current visit: Yes Status: Chronic (4) IBS (irritable bowel syndrome) Current visit: Yes Status: Chronic (5) COPD (chronic obstructive pulmonary disease) Current visit: Yes Status: Chronic (6) Normocytic anemia Current visit: Yes Status: Chronic (7) CAD (coronary artery disease) Current visit: Yes Status: Chronic 10/24/16: Plan to start antipsychotic to target psychosis once can obtain informed consent from /DPOA. Attempted to contact on and was not able to reach her; left voicemail. Will likely need to change antidepressant regimen as well.
[2016-10-24] MEDS: Oxycodone *IR* 5 MG TABLET PO PRN (19:26)
[2016-10-24] MEDS: DONEPEZIL 10 MG TABLET PO SCH (21:25)
[2016-10-24] MEDS: SIMVASTATIN 40 MG TABLET PO SCH (21:25)
--- NOTE | 2016-10-25 06:38 | Neuropsych Progress Note ---
[facility] Subjective Date: 10/25/16 - Sujective/Severity of Illness Medications: Acetaminophen (Tylenol) 650 mg PO Q6H PRN PRN Reason: Pain Al Hydroxide/Mg Hydroxide (Maalox Plus) 30 ml PO Q6H PRN PRN Reason: Indigestion Last Admin: 10/24/16 09:35 Dose: 30 ml Albuterol/Ipratropium (Duoneb) 3 ml AEROSOL QID [facility] Last Admin: 10/24/16 20:15 Dose: 3 ml Aspirin (Asa) 81 mg PO DAILY [facility] Last Admin: 10/24/16 08:31 Dose: 81 mg Budesonide (Pulmicort Inhalation) 0.5 mg IH BID [facility] Last Admin: 10/24/16 20:15 Dose: 0.5 mg Calcium Polycarbophil (Fiber-Lax) 625 mg PO BID [facility] Last Admin: 10/24/16 21:28 Dose: Not Given Cholestyramine Resin (Questran Light) 4 g PO Q6H PRN PRN Reason: Diarrhea Cyanocobalamin (Vit B-12) 500 mcg PO DAILY [facility] Last Admin: 10/24/16 08:30 Dose: 500 mcg Donepezil HCl (Aricept) 10 mg PO HS [facility] Last Admin: 10/24/16 21:25 Dose: 10 mg Escitalopram Oxalate (Lexapro) 20 mg PO DAILY [facility] Last Admin: 10/24/16 08:30 Dose: 20 mg Lamotrigine (Lamictal) 100 mg PO BID [facility] Last Admin: 10/24/16 20:38 Dose: 100 mg Lorazepam (Ativan Inj) 0.5 mg IM Q6H PRN PRN Reason: Extreme agitation Lorazepam (Ativan) 0.5 mg PO Q6H PRN PRN Reason: Extreme agitation Last Admin: 10/24/16 18:24 Dose: 0.5 mg Multivitamins/Minerals (Therapeutic - M) 1 tab PO DAILY [facility] Last Admin: 10/24/16 08:30 Dose: 1 tab [id number] Ethyl Esters (Lovaza) 1 gm PO DAILY [facility] Last Admin: 10/24/16 08:30 Dose: 1 gm Omeprazole (Prilosec) 20 mg PO ACB [facility] Last Admin: 10/24/16 08:28 Dose: 20 mg Oxycodone HCl (Roxicodone *Ir*) 10 mg PO TID PRN PRN Reason: Pain Last Admin: 10/24/16 19:26 Dose: 10 mg Simvastatin (Zocor) 40 mg PO HS [facility] Last Admin: 10/24/16 21:25 Dose: 40 mg Sodium Chloride (Deep Sea Nasal Moisturizing [place]) 2 spray EA NOSTRIL QID [facility] Last Admin: 10/24/16 20:38 Dose: 2 spray Subjective: Pt. seen, chart reviewed. Case discussed w RN. 76 year old white male who was brought for admission by his from home. He has had some paranoia, hallucinations, and agitated behaviors, was walking railroad tracks. RN reports he has had SI. Has a hx of having killed his son in law which they report was deemed to be in self defense. He and his have limited support and are on financial hard times. Takes meds compliantly here. RN reports night time cares went fine last night. only slept 2-3 hours last night but was resting quietly upon my visit this morning. Appetite has been low. Start Time: 06:30 Stop Time: 06:45 Mental Status Exam Vitals: Last Vital Signs Temp 98.4 F 10/24/16 23:28 Pulse 99 10/24/16 23:28 Resp 20 10/24/16 23:28 BP 161/79 H 10/24/16 23:28 Pulse Ox 92 10/24/16 23:28 Height: 5 ft 9 in Weight: 73.4 kg - Mental Status Exam Muscle Strength/Tone: Weak Dressing: Casual Grooming: Fair Attitude: Guarded Motor Activity: Retardation Eye Contact: Fair Speech: Slowed Volume: Soft Rhythm: Mumbled, Paucity of Language Orientation: Disoriented to time, Oriented to time Mood: Depressed Rate of Thoughts: Delayed Thought Organization: Disorganized, Confused Associations: Illogical Abstract Reasoning: Impaired, concrete Thought Content: Ruminations, Hopelessness, Helplessness, Paranoia Perception/Psychotic: Other (Unclear whether may be having AH) Language: Naming Impaired Fund of Knowledge: Poor fund of knowledge Memory: Poor-immediate, Poor-recent Suicidal Ideation: Persistent, Other (was found on [place] by police and has made comments to RN consistent) Homicidal Ideation: Intermittent Insight: Impaired Judgement: Impaired Impulse Control: Fair - Laboratory Result Diagrams: 10/23/16 07:15 10/23/16 07:15 Assessment and Plan (1) Major depressive disorder, recurrent, severe with psychotic features Current visit: Yes Status: Acute 17: If ok with upon her visit today, will start Zyprexa tonight.
[2016-10-25] MEDS: BUDESONIDE INH.SOLN 0.5mg/2ml NEB IH SCH ×2 (07:10→20:11)
[2016-10-25] MEDS: ALBUTEROL/IPRATROPIUM 2.5mg-0.5mg/3ml NEB AEROSOL SCH ×4 (07:10→20:11)
[2016-10-25] MEDS: OMEPRAZOLE 20 MG CAPSULE PO SCH (08:37)
[2016-10-25] MEDS: Oxycodone *IR* 5 MG TABLET PO PRN ×2 (08:37→17:58)
[2016-10-25] MEDS: ESCITALOPRAM 20 MG TABLET PO SCH (08:38)
[2016-10-25] MEDS: OMEGA-3 ACID ESTERS 1 GM CAPSULE PO SCH (08:38)
[2016-10-25] MEDS: MULTI-VITAMIN + MINERAL TABLET PO SCH (08:38)
[2016-10-25] MEDS: LAMOTRIGINE 100 MG TABLET PO SCH ×2 (08:38→20:29)
[2016-10-25] MEDS: ASPIRIN 81 MG CHEWABLE TABLET PO SCH (08:38)
[2016-10-25] MEDS: CALCIUM POLYCARBOPHIL 625 MG TABLET PO SCH ×2 (08:38→20:28)
[2016-10-25] MEDS: CYANOCOBALAMIN (B-12) 500mcg TABLET PO SCH (10:06)
[2016-10-25] MEDS: SALINE 0.65% NASAL SPRAY 44 ML BOTTLE EA NOSTRIL SCH ×4 (10:06→20:29)
--- NOTE | 2016-10-25 16:16 | Progress Note ---
<Elli Mccall - Last Filed: 10/25/16 16:13> Subjective: Victor Manuel is seen today in follow up. He is resting. Some tremors noted while sleeping. D/W nursing earlier today. reported that pt. takes Percocet 10mg TID scheduled at home for cancer pain , and is upset that it has been changed to PRN. Patient is not able to give history during my visit. Chart reviewed for collateral information. Objective Vital signs: Temp Pulse Resp BP Pulse Ox 97.6 F 103 H 16 137/70 94 10/25/16 08:00 10/25/16 08:00 10/25/16 15:23 10/25/16 08:00 10/25/16 10:59 Body Mass Index: 23.8 - Constitutional Present: no acute distress, well nourished, well developed, thin Comments: Thin. Occasional tremors noted during sleep. - Routine Respiratory Exam Present: CTA bilaterally. Absent: accessory muscle use, rales, rhonchi, wheezes - Routine Cardiovascular Exam Present: RRR, S1, S2, no murmur - Routine Abdominal Exam Present: soft, normoactive bowel sounds, non distended, non tender - Routine Skin Exam Present: intact, dry, warm Comments: Chronic discolorations of skin noted (Sun damage?) - Routine Neurological Exam Unable to assess- pt sleeping. Results - Labs CBC & Chem 7: 10/23/16 07:15 10/23/16 07:15 Assessment and Plan (1) Normocytic anemia Current visit: Yes Status: Chronic (2) CAD (coronary artery disease) Current visit: Yes Status: Chronic (3) COPD (chronic obstructive pulmonary disease) Current visit: Yes Status: Chronic (4) Lung cancer Problem details: History of lung cancer, s/p chemotherapy Current visit: No Status: Resolved (5) IBS (irritable bowel syndrome) Current visit: Yes Status: Chronic (6) Anxiety Current visit: Yes Status: Chronic (7) Depression Current visit: Yes Status: Chronic (8) Seizure disorder Problem details: Poorly controlled on Lamictal 100mg PO BID Current visit: Yes Status: Chronic (9) Major depressive disorder, recurrent, severe with psychotic features Current visit: Yes Status: Acute Resuscitation Status: Full Code Assessment and Plan: 10/25/16- Medical consult Victor Manuel is resting quietly. He does not appear to be in acute pain, but we could consider resuming Percocet if pain becomes an issue vs. Fentanyl patch due to reported metastatic CA. Pt is c/o some diarrhea and incontinence on admission. 1 BM documented since admission. Labs are fairly unremarkable- recheck in [address] of head and MRI was negative for mets per H&P (done [place] [facility] [place] Sz DO- he appears to have small seizures vs. myoclonus during sleep. He is on Lamictal. Dr. Boyer has been consulted. Could consider adding Depakote. Need to avoid Keppra as it can exacerbate anger/mood disturbance. We will continue to follow with you. Sepsis Assessment - Evaluation Sepsis screening result: No Definite Risk - Focused Exam Vital Signs Temp Pulse Resp BP Pulse Ox 10/25/16 15:23 16 10/25/16 10:59 16 94 10/25/16 08:00 97.6 F 103 H 18 137/70 92 10/25/16 07:10 16 98 Respiratory exam: Present: CTA bilaterally Cardiovascular exam: Present: S1, S2 Capillary refill: < 2-3 Seconds Hospital Course Summary Disclaimer: The visit summary below is not to be considered part of the above Progress Note. Hospital Course: 10/23/16 15:54 Agree with admission 1. Records reviewed [place] [facility] [place]mild hypokalemia and mild KADEN were corrected -CT head and MRI brain did not show acute findings 2. Sz d/o -monitor and continue lamictal -consider increasing antiepileptics -consider neuro consult 3. IBS - reports vomiting and diarrhea and weight loss -check prealbumin -monitor intake 4. chronic conditions - CAD, HLD, COPD, BPH, normocytic anemia -continue home meds & monitor 5. Lung cancer - s/p radiation and chemo (2015) 6. Provide safe, supportive environment 10/25/16 16:22 10/25/16- Medical consult Victor Manuel is resting quietly. He does not appear to be in acute pain, but we could consider resuming Percocet if pain becomes an issue vs. Fentanyl patch due to reported metastatic CA. Pt is c/o some diarrhea and incontinence on admission. 1 BM documented since admission. Labs are fairly unremarkable- recheck in [address] Recent [address] of head and MRI was negative for mets per H&P (done @ [facility]) Sz DO- he appears to have small seizures vs. myoclonus during sleep. He is on Lamictal. Dr. Boyer has been consulted. Could consider adding Depakote. Need to avoid Keppra as it can exacerbate anger/mood disturbance. We will continue to follow with you. <Christina Herrera - Last Filed: 10/25/16 21:00> Objective Vital signs: Temp Pulse Resp BP Pulse Ox 97.6 F 103 H 16 137/70 94 10/25/16 08:00 10/25/16 08:00 10/25/16 15:23 10/25/16 08:00 10/25/16 10:59 Results - Labs CBC & Chem 7: 10/23/16 07:15 10/23/16 07:15 Assessment and Plan (1) Normocytic anemia Current visit: Yes Status: Chronic (2) CAD (coronary artery disease) Current visit: Yes Status: Chronic (3) COPD (chronic obstructive pulmonary disease) Current visit: Yes Status: Chronic (4) Lung cancer Problem details: History of lung cancer, s/p chemotherapy Current visit: No Status: Resolved (5) IBS (irritable bowel syndrome) Current visit: Yes Status: Chronic (6) Anxiety Current visit: Yes Status: Chronic (7) Depression Current visit: Yes Status: Chronic (8) Seizure disorder Problem details: Poorly controlled on Lamictal 100mg PO BID Current visit: Yes Status: Chronic (9) Major depressive disorder, recurrent, severe with psychotic features Current visit: Yes Status: Acute Assessment and Plan: 10/25/2016-I reviewed this chart, the patient history, and the [employer] MACH[employer]PERATOR's/PA's documented findings as above. We discussed and formulated the assessment and plan as above with the additions below.-Dr. Herrera Patient was seen in his room earlier this evening. He was agitated and had the assist of his nurse and nurse's aide. He was not able to answer any of my questions. On exam his lungs were clear. He had a borderline elevated heart rate with irregular rhythm. I think his increased heart rate was likely secondary to his agitation. Abdomen was soft and nontender. Extremities free of edema. He did stand up and try to walk around the room and as soon as he stood up he said my back hurts and he sat back down. I was not able to get any other history or response from him. The nurse stated that his wanted him back on the Percocet scheduled instead of the when necessary Roxicodone. I did restart scheduled Percocet and stopped the Roxicodone. We'll see if this helps with his pain. Sepsis Assessment - Focused Exam Vital Signs Resp Pulse Ox 10/25/16 15:23 16 10/25/16 10:59 16 94 Hospital Course Summary Disclaimer: The visit summary below is not to be considered part of the above Progress Note.
[2016-10-25] MEDS: Oxycodone/Apap 10/325 1 TAB PO SCH (20:28)
[2016-10-25] MEDS: SIMVASTATIN 40 MG TABLET PO SCH (21:07)
[2016-10-25] MEDS: DONEPEZIL 10 MG TABLET PO SCH (21:07)
[2016-10-26] MEDS: LORazepam 0.5 MG TABLET PO PRN ×2 (01:51→07:40)
[2016-10-26] MEDS: OMEPRAZOLE 20 MG CAPSULE PO SCH (05:48)
--- NOTE | 2016-10-26 08:03 | Neuropsych Progress Note ---
[facility] Subjective Date: 10/26/16 - Sujective/Severity of Illness Medications: Acetaminophen (Tylenol) 650 mg PO Q6H PRN PRN Reason: Pain Al Hydroxide/Mg Hydroxide (Maalox Plus) 30 ml PO Q6H PRN PRN Reason: Indigestion Last Admin: 10/24/16 09:35 Dose: 30 ml Albuterol/Ipratropium (Duoneb) 3 ml AEROSOL QID [facility] Last Admin: 10/25/16 20:11 Dose: Not Given Aspirin (Asa) 81 mg PO DAILY [facility] Last Admin: 10/25/16 08:38 Dose: 81 mg Budesonide (Pulmicort Inhalation) 0.5 mg IH BID [facility] Last Admin: 10/25/16 20:11 Dose: Not Given Calcium Polycarbophil (Fiber-Lax) 625 mg PO BID [facility] Last Admin: 10/25/16 20:28 Dose: 625 mg Cholestyramine Resin (Questran Light) 4 g PO Q6H PRN PRN Reason: Diarrhea Cyanocobalamin (Vit B-12) 500 mcg PO DAILY [facility] Last Admin: 10/25/16 10:06 Dose: 500 mcg Donepezil HCl (Aricept) 10 mg PO HS [facility] Last Admin: 10/25/16 21:07 Dose: 10 mg Escitalopram Oxalate (Lexapro) 20 mg PO DAILY [facility] Last Admin: 10/25/16 08:38 Dose: 20 mg Lamotrigine (Lamictal) 100 mg PO BID [facility] Last Admin: 10/25/16 20:29 Dose: 100 mg Lorazepam (Ativan Inj) 0.5 mg IM Q6H PRN PRN Reason: Extreme agitation Lorazepam (Ativan) 0.5 mg PO Q6H PRN PRN Reason: Extreme agitation Last Admin: 10/26/16 07:40 Dose: 0.5 mg Multivitamins/Minerals (Therapeutic - M) 1 tab PO DAILY [facility] Last Admin: 10/25/16 08:38 Dose: 1 tab [id number]-[id number] Ethyl Esters (Lovaza) 1 gm PO DAILY [facility] Last Admin: 10/25/16 08:38 Dose: 1 gm Omeprazole (Prilosec) 20 mg PO ACB [facility] Last Admin: 10/26/16 05:48 Dose: 20 mg Oxycodone/Acetaminophen (Percocet 10/325) 1 tab PO ,15,21 [facility] Last Admin: 10/25/16 20:28 Dose: 1 tab Simvastatin (Zocor) 40 mg PO HS [facility] Last Admin: 10/25/16 21:07 Dose: 40 mg Sodium Chloride (Deep Sea Nasal Moisturizing [place]) 2 spray EA NOSTRIL QID [facility] Last Admin: 10/25/16 20:29 Dose: 2 spray Subjective: Pt. seen. Chart reviewed. Case discussed w RN. Rn reports he did not sleep well, just 4 hours thru the night. They report he is always wanting to be on the go. Looking for bombs, guns, rocks, etc. He makes gestures. Upon my visit , he is moving around in bed as if he is trying to do something but clearly confused and disoriented. Dr. Jackson had wanted to start him on some Risperidone. He has had some PRN of Lorazepam with some benefit. Start Time: 07:30 Stop Time: 07:45 Mental Status Exam Vitals: Last Vital Signs Temp 97.6 F 10/26/16 01:45 Pulse 100 10/26/16 01:45 Resp 18 10/26/16 01:45 BP 170/75 H 10/26/16 01:45 Pulse Ox 92 10/26/16 01:45 Height: 5 ft 9 in Weight: 73.4 kg - Mental Status Exam Muscle Strength/Tone: Weak Dressing: Casual Grooming: Fair Attitude: Guarded, Combative Motor Activity: Retardation Eye Contact: Fair Speech: Slowed Volume: Soft Rhythm: Mumbled, Paucity of Language Orientation: Disoriented to time, Oriented to time Mood: Depressed Rate of Thoughts: Delayed Thought Organization: Disorganized, Confused Associations: Illogical Abstract Reasoning: Impaired, concrete Thought Content: Paranoia, Dissociative Perception/Psychotic: Other (Unclear whether may be having AH) Language: Naming Impaired Fund of Knowledge: Poor fund of knowledge Memory: Poor-immediate, Poor-recent Suicidal Ideation: Persistent, Other (was found on [place] by police and has made comments to RN consistent) Homicidal Ideation: Intermittent Insight: Impaired Judgement: Impaired Impulse Control: Fair - Laboratory Result Diagrams: 10/23/16 07:15 10/23/16 07:15 Laboratory Results - last 24 hr 10/23/16 07:15 RPR Non-reactive Assessment and Plan (1) Major depressive disorder, recurrent, severe with psychotic features Current visit: Yes Status: Acute Start Risperidone 0.5mg, i PO BID if ok w . Start Lorazepam 0.5mg, i PO q HS.
[2016-10-26] MEDS: ALBUTEROL/IPRATROPIUM 2.5mg-0.5mg/3ml NEB AEROSOL SCH ×4 (08:16→20:15)
[2016-10-26] MEDS ORDERED: RisperiDONE 0.5 MG TABLET PO SCH (09:00)
[2016-10-26] MEDS ORDERED: OLANZapine ODT 5 MG TABLET PO ONE (10:16)
[2016-10-26] MEDS: OMEGA-3 ACID ESTERS 1 GM CAPSULE PO SCH (10:21)
[2016-10-26] MEDS: SALINE 0.65% NASAL SPRAY 44 ML BOTTLE EA NOSTRIL SCH ×4 (10:21→20:25)
[2016-10-26] MEDS: ASPIRIN 81 MG CHEWABLE TABLET PO SCH (10:21)
[2016-10-26] MEDS: LAMOTRIGINE 100 MG TABLET PO SCH ×2 (10:21→20:25)
[2016-10-26] MEDS: Oxycodone/Apap 10/325 1 TAB PO SCH ×3 (10:21→20:25)
[2016-10-26] MEDS: ESCITALOPRAM 20 MG TABLET PO SCH (10:21)
[2016-10-26] MEDS: CALCIUM POLYCARBOPHIL 625 MG TABLET PO SCH ×2 (10:21→20:25)
[2016-10-26] MEDS: MULTI-VITAMIN + MINERAL TABLET PO SCH (10:23)
[2016-10-26] MEDS: CYANOCOBALAMIN (B-12) 500mcg TABLET PO SCH (10:23)
[2016-10-26] MEDS: BUDESONIDE INH.SOLN 0.5mg/2ml NEB IH SCH ×2 (11:31→20:15)
[2016-10-26] MEDS ORDERED: OLANZapine ODT 5 MG TABLET PO SCH (15:00)
[2016-10-26] MEDS: LORazepam 0.5 MG TABLET PO SCH (20:25)
[2016-10-26] MEDS: DONEPEZIL 10 MG TABLET PO SCH (20:25)
[2016-10-26] MEDS: OLANZapine ODT 5 MG TABLET PO SCH (20:25)
[2016-10-26] MEDS: SIMVASTATIN 40 MG TABLET PO SCH (20:25)
[2016-10-27] MEDS: OMEPRAZOLE 20 MG CAPSULE PO SCH (06:13)
[2016-10-27] MEDS: OMEGA-3 ACID ESTERS 1 GM CAPSULE PO SCH (08:05)
[2016-10-27] MEDS: CALCIUM POLYCARBOPHIL 625 MG TABLET PO SCH ×2 (08:05→21:05)
[2016-10-27] MEDS: ESCITALOPRAM 20 MG TABLET PO SCH (08:06)
[2016-10-27] MEDS: SALINE 0.65% NASAL SPRAY 44 ML BOTTLE EA NOSTRIL SCH ×4 (08:06→21:05)
[2016-10-27] MEDS: LAMOTRIGINE 100 MG TABLET PO SCH ×2 (08:06→21:05)
[2016-10-27] MEDS: ASPIRIN 81 MG CHEWABLE TABLET PO SCH (08:06)
[2016-10-27] MEDS: MULTI-VITAMIN + MINERAL TABLET PO SCH (08:06)
[2016-10-27] MEDS: CYANOCOBALAMIN (B-12) 500mcg TABLET PO SCH (08:07)
[2016-10-27] MEDS: ALBUTEROL/IPRATROPIUM 2.5mg-0.5mg/3ml NEB AEROSOL SCH ×4 (08:10→19:05)
[2016-10-27] MEDS: BUDESONIDE INH.SOLN 0.5mg/2ml NEB IH SCH (08:10)
[2016-10-27] MEDS: Oxycodone/Apap 10/325 1 TAB PO SCH ×3 (08:15→21:05)
[2016-10-27] MEDS ORDERED: BISACODYL 10 MG SUPPOSITORY RECTALLY ONE (10:51)
--- NOTE | 2016-10-27 10:52 | Progress Note ---
Subjective: Victor Manuel was seen during breakfast. He stated that he is feeling nervous and wheezy. He asked for some tape to tape the top of his orange juice container. He then switched topics and began speaking about [place] and [place] the [place], and he also spoke of a large flea market. Staff report that he has been pleasant and cooperative, alert and oriented to self. Objective Vital signs: Temp Pulse Resp BP Pulse Ox 98.3 F 90 16 148/80 H 98 10/27/16 07:39 10/27/16 07:39 10/27/16 08:10 10/27/16 07:39 10/27/16 08:10 Height: 1.75 m Weight: 73.028 kg Body Mass Index: 23.8 - Constitutional Present: no acute distress, well nourished, well developed, thin - Routine HEENT Exam ENT: Present: mucous membranes moist, oropharynx clear - Routine Respiratory Exam Present: CTA bilaterally - Routine Cardiovascular Exam Present: RRR, S1, S2 - Routine Abdominal Exam Present: soft, normoactive bowel sounds, non distended - Routine Extremities Exam Present: no edema, pulses intact, normal capillary refill - Routine Musculoskeletal Exam Musculoskeletal: no clubbing or cyanosis - Routine Skin Exam Present: intact, dry, warm - Routine Neurological Exam Present: alert. Absent: oriented X3 (x1) - Routine Psychiatric Exam Present: normal affect. Absent: normal thought process Results - Labs CBC & Chem 7: 10/23/16 07:15 10/23/16 07:15 Assessment and Plan (1) Normocytic anemia Current visit: Yes Status: Chronic (2) CAD (coronary artery disease) Current visit: Yes Status: Chronic (3) COPD (chronic obstructive pulmonary disease) Current visit: Yes Status: Chronic (4) Lung cancer Problem details: History of lung cancer, s/p chemotherapy Current visit: No Status: Resolved (5) IBS (irritable bowel syndrome) Current visit: Yes Status: Chronic (6) Anxiety Current visit: Yes Status: Chronic (7) Depression Current visit: Yes Status: Chronic (8) Seizure disorder Problem details: Poorly controlled on Lamictal 100mg PO BID Current visit: Yes Status: Chronic (9) Major depressive disorder, recurrent, severe with psychotic features Current visit: Yes Status: Acute (10) Constipation Current visit: Yes Status: Acute Assessment and Plan: Constipation (though hx of diarrhea and IBS) -BM on 10/24 x1 (moderate sized liquid stool) -ask nursing staff to check for fecal impaction -dulcolax suppository & start Senna plus BID -abdomen benign & good PO intake [facility] w/u -lipid panel: relatively normal -vit B12, folate, TSH, prealbumin: normal -RPR nonreactive Psychiatry -Dr. Scott started Risperidone and lorazepam Sepsis Assessment - Evaluation Sepsis screening result: No Definite Risk - Focused Exam Vital Signs Temp Pulse Resp BP Pulse Ox 10/27/16 08:10 16 98 10/27/16 07:39 98.3 F 90 20 148/80 H 99 Respiratory exam: Present: CTA bilaterally Cardiovascular exam: Present: S1, S2 Capillary refill: < 2-3 Seconds Hospital Course Summary Disclaimer: The visit summary below is not to be considered part of the above Progress Note. Hospital Course: 10/23/16 15:54 Agree with admission 1. [place] [facility] [place] and mild KADEN were corrected -CT head and MRI brain did not show acute findings 2. Sz d/o -monitor and continue lamictal -consider increasing antiepileptics -consider neuro consult 3. IBS - reports vomiting and diarrhea and weight loss -check prealbumin -monitor intake 4. chronic conditions - CAD, HLD, COPD, BPH, normocytic anemia -continue home meds & monitor 5. Lung cancer - s/p radiation and chemo (2014) 6. Provide safe, supportive environment 10/25/16- Medical consult Victor Manuel is resting quietly. Percocet resumed Pt is c/o some diarrhea and incontinence on admission. 1 BM documented since admission. Recent CT of head and MRI was negative for mets per H&P [place] [facility] [place] Sz DO- he appears to have small seizures vs. myoclonus during sleep. He is on Lamictal. Dr. Boyer has been consulted. Could consider adding Depakote. Need to avoid Keppra as it can exacerbate anger/mood disturbance. 10/27/16 Constipation (though hx of diarrhea and IBS) -BM on 10/24 x1 (moderate sized liquid stool) -ask nursing staff to check for fecal impaction -dulcolax suppository & start Senna plus BID -abdomen benign & good PO intake [facility] w/u -lipid panel: relatively normal -vit B12, folate, TSH, prealbumin: normal -RPR nonreactive Psychiatry -Dr. Scott started Risperidone and lorazepam
[2016-10-27] MEDS: SENNA + DOCUSATE TABLET PO SCH ×2 (15:10→21:05)
[2016-10-27] MEDS: DONEPEZIL 10 MG TABLET PO SCH (21:05)
[2016-10-27] MEDS: OLANZapine ODT 5 MG TABLET PO SCH (21:05)
[2016-10-27] MEDS: LORazepam 0.5 MG TABLET PO SCH (21:05)
[2016-10-27] MEDS: SIMVASTATIN 40 MG TABLET PO SCH (21:05)
--- NOTE | 2016-10-27 21:59 | Neuropsych Progress Note ---
[facility] Subjective Date: 10/27/16 - Sujective/Severity of Illness Medications: Acetaminophen (Tylenol) 650 mg PO Q6H PRN PRN Reason: Pain Al Hydroxide/Mg Hydroxide (Maalox Plus) 30 ml PO Q6H PRN PRN Reason: Indigestion Last Admin: 10/24/16 09:35 Dose: 30 ml Albuterol/Ipratropium (Duoneb) 3 ml AEROSOL QID [facility] Last Admin: 10/27/16 19:05 Dose: 3 ml Aspirin (Asa) 81 mg PO DAILY [facility] Last Admin: 10/27/16 08:06 Dose: 81 mg Budesonide (Pulmicort Inhalation) 0.5 mg IH BID [facility] Last Admin: 10/27/16 08:10 Dose: 0.5 mg Calcium Polycarbophil (Fiber-Lax) 625 mg PO BID [facility] Last Admin: 10/27/16 08:05 Dose: 625 mg Cholestyramine Resin (Questran Light) 4 g PO Q6H PRN PRN Reason: Diarrhea Cyanocobalamin (Vit B-12) 500 mcg PO DAILY [facility] Last Admin: 10/27/16 08:07 Dose: 500 mcg Donepezil HCl (Aricept) 10 mg PO HS [facility] Last Admin: 10/26/16 20:25 Dose: 10 mg Escitalopram Oxalate (Lexapro) 20 mg PO DAILY [facility] Last Admin: 10/27/16 08:06 Dose: 20 mg Lamotrigine (Lamictal) 100 mg PO BID [facility] Last Admin: 10/27/16 08:06 Dose: 100 mg Lorazepam (Ativan Inj) 0.5 mg IM Q6H PRN PRN Reason: Extreme agitation Lorazepam (Ativan) 0.5 mg PO Q6H PRN PRN Reason: Extreme agitation Last Admin: 10/26/16 07:40 Dose: 0.5 mg Lorazepam (Ativan) 1 mg PO HS [facility] Multivitamins/Minerals (Therapeutic - M) 1 tab PO DAILY [facility] Last Admin: 10/27/16 08:06 Dose: 1 tab Olanzapine (Zyprexa Zydis) 7.5 mg PO HS [facility] [id number] Ethyl Esters (Lovaza) 1 gm PO DAILY [facility] Last Admin: 10/27/16 08:05 Dose: 1 gm Omeprazole (Prilosec) 20 mg PO ACB [facility] Last Admin: 10/27/16 06:13 Dose: 20 mg Oxycodone/Acetaminophen (Percocet 10/325) 1 tab PO 09,15,21 [facility] Last Admin: 10/27/16 15:10 Dose: 1 tab Senna/Docusate Sodium (Senna Plus Tablet) 1 tab PO BID [facility] Last Admin: 10/27/16 15:10 Dose: 1 tab Simvastatin (Zocor) 40 mg PO HS [facility] Last Admin: 10/26/16 20:25 Dose: 40 mg Sodium Chloride (Deep Sea Nasal Moisturizing [place]) 2 spray EA NOSTRIL QID [facility] Last Admin: 10/27/16 16:54 Dose: 2 spray Subjective: Pt. seen, chart reviewed. Case discussed w RN and multidisc team. They report he has remained poorly organized and only slept 2 hours last night. SW reports he seems to be trending down cognitively. They do report he has not had the exit seeking today as before. He is accompanied by his during my visit. She also reiterates that he didn't sleep last night and she is fine w increasing or adding medication to improve that. He was not making much sense himself and was disoriented. Rn does report he's been cooperative w cares today. He was pleasant and cooperative during our visit this evening. Start Time: 17:30 Stop Time: 17:45 Mental Status Exam Vitals: Last Vital Signs Temp 98.3 F 10/27/16 16:00 Pulse 97 10/27/16 16:00 Resp 16 10/27/16 19:05 BP 146/71 H 10/27/16 16:00 Pulse Ox 94 10/27/16 16:00 Height: 5 ft 9 in Weight: 73.028 kg - Mental Status Exam Muscle Strength/Tone: Weak Dressing: Casual Grooming: Fair Attitude: Guarded, Combative Motor Activity: Retardation Eye Contact: Fair Speech: Slowed Volume: Soft Rhythm: Mumbled, Paucity of Language Orientation: Disoriented to time, Oriented to time Mood: Depressed Rate of Thoughts: Delayed Thought Organization: Disorganized, Confused Associations: Illogical Abstract Reasoning: Impaired, concrete Thought Content: Paranoia, Dissociative Perception/Psychotic: Other (suspect some perceptual disturbances) Language: Naming Impaired Fund of Knowledge: Poor fund of knowledge Memory: Poor-immediate, Poor-recent Suicidal Ideation: Persistent, Other (was found on [place] Tracks by police and has made comments to RN consistent) Homicidal Ideation: Intermittent Insight: Impaired Judgement: Impaired Impulse Control: Fair - Laboratory Result Diagrams: 10/23/16 07:15 10/23/16 07:15 Laboratory Results - last 24 hr 10/23/16 07:15 Triglycerides 99 Cholesterol 109 L LDL Cholesterol, Calc 39.2 L VLDL Cholesterol 19.8 HDL Cholesterol 50 Cholesterol/HDL Ratio 2.2 Assessment and Plan (1) Major depressive disorder, recurrent, severe with psychotic features Current visit: Yes Status: Acute Discussed going up on meds w . She consented. Increase Lorazepam to 1mg PO q HS. Increase Zyprexa to 7.5mg PO q HS. Called RN on unit and let her know they can give catch up doses tonight since HS meds have been given prior to my food service order clerk.
[2016-10-27] MEDS: LORazepam 0.5 MG TABLET PO PRN (22:04)
[2016-10-27] MEDS ORDERED: OLANZapine ODT 5 MG TABLET PO ONE (22:04)
[2016-10-28] MEDS: OLANZapine ODT 5 MG TABLET PO SCH ×2 (05:32→21:17)
[2016-10-28] MEDS: LORazepam 0.5 MG TABLET PO SCH ×2 (05:32→21:17)
[2016-10-28] MEDS: ALBUTEROL/IPRATROPIUM 2.5mg-0.5mg/3ml NEB AEROSOL SCH ×3 (07:45→19:20)
[2016-10-28] MEDS: BUDESONIDE INH.SOLN 0.5mg/2ml NEB IH SCH ×2 (07:45→12:18)
[2016-10-28] MEDS: ASPIRIN 81 MG CHEWABLE TABLET PO SCH (09:07)
[2016-10-28] MEDS: OMEPRAZOLE 20 MG CAPSULE PO SCH (09:07)
[2016-10-28] MEDS: ESCITALOPRAM 20 MG TABLET PO SCH (09:07)
[2016-10-28] MEDS: LAMOTRIGINE 100 MG TABLET PO SCH ×2 (09:07→21:16)
[2016-10-28] MEDS: SENNA + DOCUSATE TABLET PO SCH ×2 (09:07→21:16)
[2016-10-28] MEDS: CALCIUM POLYCARBOPHIL 625 MG TABLET PO SCH ×2 (09:07→21:16)
[2016-10-28] MEDS: SALINE 0.65% NASAL SPRAY 44 ML BOTTLE EA NOSTRIL SCH ×5 (09:08→21:16)
[2016-10-28] MEDS: MULTI-VITAMIN + MINERAL TABLET PO SCH (09:09)
[2016-10-28] MEDS: OMEGA-3 ACID ESTERS 1 GM CAPSULE PO SCH ×2 (09:10→12:17)
[2016-10-28] MEDS: Oxycodone/Apap 10/325 1 TAB PO SCH ×4 (09:10→21:14)
[2016-10-28] MEDS: CYANOCOBALAMIN (B-12) 500mcg TABLET PO SCH (09:10)
--- NOTE | 2016-10-28 17:38 | Neuropsych Progress Note ---
[facility] Subjective Date: 10/28/16 - Sujective/Severity of Illness Medications: Acetaminophen (Tylenol) 650 mg PO Q6H PRN PRN Reason: Pain Al Hydroxide/Mg Hydroxide (Maalox Plus) 30 ml PO Q6H PRN PRN Reason: Indigestion Last Admin: 10/24/16 09:35 Dose: 30 ml Albuterol/Ipratropium (Duoneb) 3 ml AEROSOL QID [facility] Last Admin: 10/28/16 15:35 Dose: 3 ml Aspirin (Asa) 81 mg PO DAILY [facility] Last Admin: 10/28/16 09:07 Dose: 81 mg Budesonide (Pulmicort Inhalation) 0.5 mg IH BID [facility] Last Admin: 10/28/16 12:18 Dose: Not Given Calcium Polycarbophil (Fiber-Lax) 625 mg PO BID [facility] Last Admin: 10/28/16 09:07 Dose: 625 mg Cholestyramine Resin (Questran Light) 4 g PO Q6H PRN PRN Reason: Diarrhea Cyanocobalamin (Vit B-12) 500 mcg PO DAILY [facility] Last Admin: 10/28/16 09:10 Dose: 500 mcg Donepezil HCl (Aricept) 10 mg PO HS [facility] Last Admin: 10/27/16 21:05 Dose: 10 mg Escitalopram Oxalate (Lexapro) 20 mg PO DAILY [facility] Last Admin: 10/28/16 09:07 Dose: 20 mg Lamotrigine (Lamictal) 100 mg PO TID [facility] Lorazepam (Ativan Inj) 0.5 mg IM Q6H PRN PRN Reason: Extreme agitation Lorazepam (Ativan) 0.5 mg PO Q6H PRN PRN Reason: Extreme agitation Last Admin: 10/27/16 22:04 Dose: 0.5 mg Lorazepam (Ativan) 1 mg PO HS [facility] Last Admin: 10/28/16 05:32 Dose: Not Given Multivitamins/Minerals (Therapeutic - M) 1 tab PO DAILY [facility] Last Admin: 10/28/16 09:09 Dose: 1 tab Olanzapine (Zyprexa Zydis) 7.5 mg PO HS [facility] Last Admin: 10/28/16 05:32 Dose: Not Given [id number]-[id number] Ethyl Esters (Lovaza) 1 gm PO DAILY [facility] Last Admin: 10/28/16 12:17 Dose: Not Given Omeprazole (Prilosec) 20 mg PO ACB [facility] Last Admin: 10/28/16 09:07 Dose: 20 mg Oxycodone/Acetaminophen (Percocet 10/325) 1 tab PO 09,15,21 [facility] Last Admin: 10/28/16 16:57 Dose: 1 tab Senna/Docusate Sodium (Senna Plus Tablet) 1 tab PO BID [facility] Last Admin: 10/28/16 09:07 Dose: 1 tab Simvastatin (Zocor) 40 mg PO HS [facility] Last Admin: 10/27/16 21:05 Dose: 40 mg Sodium Chloride (Deep Sea Nasal Moisturizing [place]) 2 spray EA NOSTRIL QID [facility] Last Admin: 10/28/16 16:34 Dose: 2 spray Subjective: Pt seen, chart reviewed. case discussed w rn and unit nurse this am. i also visited w his last evening and again this am. they report he certainly slept more last night and he is actually sleeping during my visit this morning, for a total of 7 hours at the time of my visit. he still did not get to sleep quickly. understands risks w meds and agrees to ongoing use, in favor of whatever we can do to help him sleep some. rn reports he remains compliant w meds and cooperative w cares past 24 hours. no combative w them. no aggression. he has been somewhat jerky and tremulous at times. appetite fair. Start Time: 08:30 Stop Time: 08:45 Mental Status Exam Vitals: Last Vital Signs Temp 98.0 F 10/28/16 08:00 Pulse 110 H 10/28/16 08:00 Resp 16 10/28/16 15:35 BP 127/69 10/28/16 08:00 Pulse Ox 97 10/28/16 08:00 Height: 5 ft 9 in Weight: 73.028 kg - Mental Status Exam Muscle Strength/Tone: Weak Dressing: Casual Grooming: Fair Attitude: Guarded Motor Activity: Retardation Eye Contact: Fair Speech: Slowed Volume: Soft Rhythm: Mumbled, Paucity of Language Orientation: Disoriented to time, Oriented to time Mood: Depressed Rate of Thoughts: Delayed Thought Organization: Disorganized, Confused Associations: Illogical Abstract Reasoning: Impaired, concrete Thought Content: Paranoia, Dissociative Perception/Psychotic: Other (suspect some perceptual disturbances) Language: Naming Impaired Fund of Knowledge: Poor fund of knowledge Memory: Poor-immediate, Poor-recent Suicidal Ideation: Persistent, Other (was found on [employer] Tracks by police and has made comments to RN consistent) Homicidal Ideation: Intermittent Insight: Impaired Judgement: Impaired Impulse Control: Fair - Laboratory Result Diagrams: 10/23/16 07:15 10/23/16 07:15 Assessment and Plan (1) Major depressive disorder, recurrent, severe with psychotic features Current visit: Yes Status: Acute neuro had been consulted previously but apparently this did not make it to neuro. neuro contacted today by staff to have consult completed, regarding seizure disorder. was considering ct scan of head today but will defer to neuro since consulted. continue psych meds same. we've made some progress in past couple days and i'm hesitant to push much faster for fear of adverse effects.
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
[2016-10-28] MEDS: DONEPEZIL 10 MG TABLET PO SCH (21:16)
[2016-10-28] MEDS: SIMVASTATIN 40 MG TABLET PO SCH (21:17)
[2016-10-29] MEDS: ALBUTEROL/IPRATROPIUM 2.5mg-0.5mg/3ml NEB AEROSOL SCH ×5 (06:50→19:40)
[2016-10-29] MEDS: BUDESONIDE INH.SOLN 0.5mg/2ml NEB IH SCH ×3 (06:50→19:40)
[2016-10-29] MEDS: LAMOTRIGINE 100 MG TABLET PO SCH ×3 (08:15→21:30)
[2016-10-29] MEDS: ASPIRIN 81 MG CHEWABLE TABLET PO SCH (08:15)
[2016-10-29] MEDS: Oxycodone/Apap 10/325 1 TAB PO SCH ×3 (08:15→21:29)
[2016-10-29] MEDS: OMEGA-3 ACID ESTERS 1 GM CAPSULE PO SCH (08:15)
[2016-10-29] MEDS: MULTI-VITAMIN + MINERAL TABLET PO SCH (08:16)
[2016-10-29] MEDS: SENNA + DOCUSATE TABLET PO SCH ×2 (08:16→21:31)
[2016-10-29] MEDS: CYANOCOBALAMIN (B-12) 500mcg TABLET PO SCH (08:16)
[2016-10-29] MEDS: ESCITALOPRAM 20 MG TABLET PO SCH (08:16)
[2016-10-29] MEDS: SALINE 0.65% NASAL SPRAY 44 ML BOTTLE EA NOSTRIL SCH ×4 (08:16→21:30)
[2016-10-29] MEDS: CALCIUM POLYCARBOPHIL 625 MG TABLET PO SCH ×2 (08:16→21:29)
[2016-10-29] MEDS: OMEPRAZOLE 20 MG CAPSULE PO SCH (08:16)
[2016-10-29] MEDS: SIMVASTATIN 40 MG TABLET PO SCH (21:31)
[2016-10-29] MEDS: DONEPEZIL 10 MG TABLET PO SCH (21:31)
[2016-10-29] MEDS: OLANZapine ODT 5 MG TABLET PO SCH (21:31)
[2016-10-29] MEDS: LORazepam 0.5 MG TABLET PO SCH (21:33)
--- NOTE | 2016-10-29 22:07 | Neuropsych Progress Note ---
[facility] Subjective Date: 10/30/16 - Sujective/Severity of Illness Medications: Acetaminophen (Tylenol) 650 mg PO Q6H PRN PRN Reason: Pain Al Hydroxide/Mg Hydroxide (Maalox Plus) 30 ml PO Q6H PRN PRN Reason: Indigestion Last Admin: 10/24/16 09:35 Dose: 30 ml Albuterol/Ipratropium (Duoneb) 3 ml AEROSOL QID [facility] Last Admin: 10/29/16 15:20 Dose: 3 ml Aspirin (Asa) 81 mg PO DAILY [facility] Last Admin: 10/29/16 08:15 Dose: 81 mg Budesonide (Pulmicort Inhalation) 0.5 mg IH BID [facility] Last Admin: 10/29/16 07:30 Dose: 0.5 mg Calcium Polycarbophil (Fiber-Lax) 625 mg PO BID [facility] Last Admin: 10/29/16 21:29 Dose: 625 mg Cholestyramine Resin (Questran Light) 4 g PO Q6H PRN PRN Reason: Diarrhea Cyanocobalamin (Vit B-12) 500 mcg PO DAILY [facility] Last Admin: 10/29/16 08:16 Dose: 500 mcg Donepezil HCl (Aricept) 10 mg PO HS [facility] Last Admin: 10/29/16 21:31 Dose: 10 mg Escitalopram Oxalate (Lexapro) 20 mg PO DAILY [facility] Last Admin: 10/29/16 08:16 Dose: 20 mg Lamotrigine (Lamictal) 100 mg PO TID [facility] Last Admin: 10/29/16 21:30 Dose: 100 mg Lorazepam (Ativan Inj) 0.5 mg IM Q6H PRN PRN Reason: Extreme agitation Lorazepam (Ativan) 0.5 mg PO Q6H PRN PRN Reason: Extreme agitation Last Admin: 10/27/16 22:04 Dose: 0.5 mg Lorazepam (Ativan) 1 mg PO HS [facility] Last Admin: 10/29/16 21:33 Dose: 1 mg Multivitamins/Minerals (Therapeutic - M) 1 tab PO DAILY [facility] Last Admin: 10/29/16 08:16 Dose: 1 tab Olanzapine (Zyprexa Zydis) 7.5 mg PO HS [facility] Last Admin: 10/29/16 21:31 Dose: 7.5 mg Aidwz-1-Xjex Ethyl Esters (Lovaza) 1 gm PO DAILY [facility] Last Admin: 10/29/16 08:15 Dose: 1 gm Omeprazole (Prilosec) 20 mg PO ACB [facility] Last Admin: 10/29/16 08:16 Dose: 20 mg Oxycodone/Acetaminophen (Percocet 10/325) 1 tab PO 09,15,21 [facility] Last Admin: 10/29/16 21:29 Dose: 1 tab Senna/Docusate Sodium (Senna Plus Tablet) 1 tab PO BID [facility] Last Admin: 10/29/16 21:31 Dose: 1 tab Simvastatin (Zocor) 40 mg PO HS [facility] Last Admin: 10/29/16 21:31 Dose: 40 mg Sodium Chloride (Deep Sea Nasal Moisturizing [place]) 2 spray EA NOSTRIL QID [facility] Last Admin: 10/29/16 21:30 Dose: 2 spray Subjective: Patient seen and chart reviewed. Case discussed with treatment team. On interview, patient is cooperative but quiet. He does answer questions appropriately but then shuts down and does not answer after I ask about SI. He then appears to become slightly tearful. His then enters the room and she states she feels he is doing somewhat better "because he's not counting as much or saying the ABCs." She states she would like him to return home with her and have HH or a sitter be available to stay with him on the rare occasions that she needs to leave the home. Patient denies any HI or AVH. Patient denies any adverse side effects related to psychotropic medications. He does continue to complain of pain in back but especially nerve pain in feet. Nursing staff report patient has been cooperative overall and not observed responding to internal stimuli. He continues to be intermittently tearful. Patient slept 9 hours overnight. VSS. Patient is eating well. Psychotropic PRNs required in the past 24 hours: none. Dr. Jo (neuro) saw patient on 10/28/16 and increased Lamictal to 100mg PO TID for better seizure control, recommended considering Sinemet for parkinonism though may be attributed to antipsychotic use as well. Start Time: 17:40 Stop Time: 18:00 Mental Status Exam Vitals: Last Vital Signs Temp 98.0 F 10/29/16 20:44 Pulse 92 10/29/16 20:44 Resp 16 10/29/16 20:44 BP 145/71 H 10/29/16 20:44 Pulse Ox 93 10/29/16 20:44 Height: 1.75 m Weight: 73.1 kg - Mental Status Exam Muscle Strength/Tone: Weak Dressing: Casual Grooming: Fair Attitude: Guarded Motor Activity: Retardation Eye Contact: Fair Speech: Slowed Volume: Soft Rhythm: Mumbled, Paucity of Language Orientation: Disoriented to time, Oriented to time Mood: Depressed, Tearful Rate of Thoughts: Delayed Thought Organization: Disorganized, Confused Associations: Illogical (improving) Abstract Reasoning: Impaired, concrete Thought Content: Ruminations, Hopelessness, Somatic Concerns Perception/Psychotic: Other (suspect some perceptual disturbances) Language: Naming Impaired Fund of Knowledge: Poor fund of knowledge Memory: Poor-immediate, Poor-recent Suicidal Ideation: Persistent, Other (was found on [place] Tracks by police and has made comments to RN consistent) Homicidal Ideation: Intermittent Insight: Impaired Judgement: Impaired Impulse Control: Fair - Laboratory Result Diagrams: 10/23/16 07:15 10/23/16 07:15 Assessment and Plan (1) Major depressive disorder, recurrent, severe with psychotic features Current visit: Yes Status: Acute (2) Major neurocognitive disorder Problem details: Likely due to multiple etiologies - vascular and seizures Current visit: Yes Status: Chronic (3) Seizure disorder Problem details: Poorly controlled on Lamictal 100mg PO BID Current visit: Yes Status: Chronic (4) IBS (irritable bowel syndrome) Current visit: Yes Status: Chronic (5) COPD (chronic obstructive pulmonary disease) Current visit: Yes Status: Chronic (6) Normocytic anemia Current visit: Yes Status: Chronic (7) CAD (coronary artery disease) Current visit: Yes Status: Chronic Neurology increased Lamictal to 100mg PO TID for better seizure control. May consider increasing antidepressant d/t continued SI, dysphoria/tearfulness.
[2016-10-30] MEDS: BUDESONIDE INH.SOLN 0.5mg/2ml NEB IH SCH ×2 (07:20→19:20)
[2016-10-30] MEDS: ALBUTEROL/IPRATROPIUM 2.5mg-0.5mg/3ml NEB AEROSOL SCH ×3 (07:57→19:20)
[2016-10-30] MEDS: CALCIUM POLYCARBOPHIL 625 MG TABLET PO SCH ×2 (09:00→20:56)
[2016-10-30] MEDS: ASPIRIN 81 MG CHEWABLE TABLET PO SCH (09:00)
[2016-10-30] MEDS: OMEPRAZOLE 20 MG CAPSULE PO SCH (09:00)
[2016-10-30] MEDS: OMEGA-3 ACID ESTERS 1 GM CAPSULE PO SCH (09:01)
[2016-10-30] MEDS: LAMOTRIGINE 100 MG TABLET PO SCH ×3 (09:01→20:56)
[2016-10-30] MEDS: SENNA + DOCUSATE TABLET PO SCH ×2 (09:01→20:55)
[2016-10-30] MEDS: ESCITALOPRAM 20 MG TABLET PO SCH (09:01)
[2016-10-30] MEDS: MULTI-VITAMIN + MINERAL TABLET PO SCH (09:01)
[2016-10-30] MEDS: CYANOCOBALAMIN (B-12) 500mcg TABLET PO SCH (09:02)
[2016-10-30] MEDS: SALINE 0.65% NASAL SPRAY 44 ML BOTTLE EA NOSTRIL SCH ×4 (09:05→20:57)
[2016-10-30] MEDS: Oxycodone/Apap 10/325 1 TAB PO SCH ×3 (09:08→20:55)
[2016-10-30] MEDS: ACETAMINOPHEN 325 MG TABLET PO PRN (12:16)
[2016-10-30] MEDS: SIMVASTATIN 40 MG TABLET PO SCH (21:09)
[2016-10-30] MEDS: DONEPEZIL 10 MG TABLET PO SCH (21:09)
[2016-10-30] MEDS: OLANZapine ODT 5 MG TABLET PO SCH (21:09)
[2016-10-30] MEDS: LORazepam 0.5 MG TABLET PO SCH (21:12)
--- NOTE | 2016-10-30 21:38 | Neuropsych Progress Note ---
[facility] Subjective Date: 10/30/16 - Sujective/Severity of Illness Medications: Acetaminophen (Tylenol) 650 mg PO Q6H PRN PRN Reason: Pain Last Admin: 10/30/16 12:16 Dose: 650 mg Al Hydroxide/Mg Hydroxide (Maalox Plus) 30 ml PO Q6H PRN PRN Reason: Indigestion Last Admin: 10/24/16 09:35 Dose: 30 ml Albuterol/Ipratropium (Duoneb) 3 ml AEROSOL QID [facility] Last Admin: 10/30/16 19:20 Dose: 3 ml Aspirin (Asa) 81 mg PO DAILY [facility] Last Admin: 10/30/16 09:00 Dose: 81 mg Budesonide (Pulmicort Inhalation) 0.5 mg IH BID [facility] Last Admin: 10/30/16 19:20 Dose: 0.5 mg Calcium Polycarbophil (Fiber-Lax) 625 mg PO BID [facility] Last Admin: 10/30/16 20:56 Dose: 625 mg Cholestyramine Resin (Questran Light) 4 g PO Q6H PRN PRN Reason: Diarrhea Cyanocobalamin (Vit B-12) 500 mcg PO DAILY [facility] Last Admin: 10/30/16 09:02 Dose: 500 mcg Donepezil HCl (Aricept) 10 mg PO HS [facility] Last Admin: 10/30/16 21:09 Dose: 10 mg Escitalopram Oxalate (Lexapro) 20 mg PO DAILY [facility] Last Admin: 10/30/16 09:01 Dose: 20 mg Lamotrigine (Lamictal) 100 mg PO TID [facility] Last Admin: 10/30/16 20:56 Dose: 100 mg Lorazepam (Ativan Inj) 0.5 mg IM Q6H PRN PRN Reason: Extreme agitation Lorazepam (Ativan) 0.5 mg PO Q6H PRN PRN Reason: Extreme agitation Last Admin: 10/27/16 22:04 Dose: 0.5 mg Lorazepam (Ativan) 1 mg PO HS [facility] Last Admin: 10/30/16 21:12 Dose: 1 mg Multivitamins/Minerals (Therapeutic - M) 1 tab PO DAILY [facility] Last Admin: 10/30/16 09:01 Dose: 1 tab Olanzapine (Zyprexa Zydis) 7.5 mg PO HS [facility] Last Admin: 10/30/16 21:09 Dose: 7.5 mg [id number] Ethyl Esters (Lovaza) 1 gm PO DAILY [facility] Last Admin: 10/30/16 09:01 Dose: 1 gm Omeprazole (Prilosec) 20 mg PO ACB [facility] Last Admin: 10/30/16 09:00 Dose: 20 mg Oxycodone/Acetaminophen (Percocet 10/325) 1 tab PO ,15,21 [facility] Last Admin: 10/30/16 20:55 Dose: 1 tab Senna/Docusate Sodium (Senna Plus Tablet) 1 tab PO BID [facility] Last Admin: 10/30/16 20:55 Dose: 1 tab Simvastatin (Zocor) 40 mg PO HS [facility] Last Admin: 10/30/16 21:09 Dose: 40 mg Sodium Chloride (Deep Sea Nasal Moisturizing [place]) 2 spray EA NOSTRIL QID [facility] Last Admin: 10/30/16 20:57 Dose: 2 spray Trolamine Salicylate (Aspercreme) 1 applic TOP PRN PRN Subjective: Patient seen and chart reviewed. Case discussed with treatment team. On interview, patient is cooperative and answers fairly logically. He complains of pain, especially in his feet after chemo, and that this significantly affects his mood. He feels this affects his quality of life and does admit to continued SI mainly due to this pain. reports that Lyrica and gabapentin were not helpful on previous trials. Patient denies any HI or AVH. Patient denies any adverse side effects related to psychotropic medications. Nursing staff report patient has been cooperative overall. made a comment to staff that "he was feeling sorry for himself" at one point when he was tearful. No behavioral difficulties on unit. Patient slept well overnight. VSS. Patient is eating well. Psychotropic PRNs required in the past 24 hours: none. Start Time: 17:20 Stop Time: 17:40 Mental Status Exam Vitals: Last Vital Signs Temp 97.6 F 10/30/16 20:09 Pulse 85 10/30/16 20:09 Resp 12 10/30/16 20:09 BP 113/67 10/30/16 20:09 Pulse Ox 90 10/30/16 20:09 Height: 1.75 m Weight: 73.1 kg - Mental Status Exam Muscle Strength/Tone: Weak Dressing: Casual Grooming: Fair Attitude: Guarded Motor Activity: Retardation Eye Contact: Fair Speech: Slowed Volume: Soft Rhythm: Mumbled, Paucity of Language Orientation: Disoriented to time, Oriented to time Mood: Depressed, Tearful Rate of Thoughts: Delayed Thought Organization: Confused (improving) Associations: Illogical (improving) Abstract Reasoning: Impaired, concrete Thought Content: Ruminations, Hopelessness, Helplessness, Somatic Concerns Perception/Psychotic: Hx psychosis, not current Language: Naming Impaired Fund of Knowledge: Poor fund of knowledge Memory: Poor-immediate, Poor-recent Suicidal Ideation: Persistent, Other (was found on [place] Tr[place] by police and has made comments to RN consistent) Homicidal Ideation: Intermittent Insight: Impaired Judgement: Impaired Impulse Control: Fair - Laboratory Result Diagrams: 10/23/16 07:15 10/23/16 07:15 Assessment and Plan (1) Major depressive disorder, recurrent, severe with psychotic features Current visit: Yes Status: Acute (2) Major neurocognitive disorder Problem details: Likely due to multiple etiologies - vascular and seizures Current visit: Yes Status: Chronic (3) Seizure disorder Problem details: Poorly controlled on Lamictal 100mg PO BID Current visit: Yes Status: Chronic (4) IBS (irritable bowel syndrome) Current visit: Yes Status: Chronic (5) COPD (chronic obstructive pulmonary disease) Current visit: Yes Status: Chronic (6) Normocytic anemia Current visit: Yes Status: Chronic (7) CAD (coronary artery disease) Current visit: Yes Status: Chronic Will order Aspercreme to see if this is helpful - per patient, pain is main contributor to depression and perceived poor quality of life leading to SI. Monitor response - will likely increase antidepressant as well.
[2016-10-31] MEDS: BUDESONIDE INH.SOLN 0.5mg/2ml NEB IH SCH ×2 (07:50→19:40)
[2016-10-31] MEDS: ALBUTEROL/IPRATROPIUM 2.5mg-0.5mg/3ml NEB AEROSOL SCH ×4 (07:50→19:40)
[2016-10-31] MEDS: OMEPRAZOLE 20 MG CAPSULE PO SCH (08:39)
[2016-10-31] MEDS: ASPIRIN 81 MG CHEWABLE TABLET PO SCH (08:39)
[2016-10-31] MEDS: LAMOTRIGINE 100 MG TABLET PO SCH ×3 (08:40→20:55)
[2016-10-31] MEDS: OMEGA-3 ACID ESTERS 1 GM CAPSULE PO SCH (08:40)
[2016-10-31] MEDS: ESCITALOPRAM 20 MG TABLET PO SCH (08:40)
[2016-10-31] MEDS: SENNA + DOCUSATE TABLET PO SCH ×2 (08:40→20:55)
[2016-10-31] MEDS: CALCIUM POLYCARBOPHIL 625 MG TABLET PO SCH ×2 (08:40→20:55)
[2016-10-31] MEDS: Oxycodone/Apap 10/325 1 TAB PO SCH ×3 (08:41→20:54)
[2016-10-31] MEDS: MULTI-VITAMIN + MINERAL TABLET PO SCH (08:41)
[2016-10-31] MEDS: CYANOCOBALAMIN (B-12) 500mcg TABLET PO SCH (08:41)
[2016-10-31] MEDS: SALINE 0.65% NASAL SPRAY 44 ML BOTTLE EA NOSTRIL SCH ×4 (10:34→20:55)
--- NOTE | 2016-10-31 15:15 | Progress Note ---
Subjective: Mr. Raygoza was seen in his room. His was also present and she denies any physical complaints. She feels like he is doing better overall. Victor Manuel. Mostly complains about his hair and states that he needs a haircut. Objective Vital signs: Temp Pulse Resp BP Pulse Ox 97.3 F 112 H 22 117/67 92 10/31/16 08:00 10/31/16 08:00 10/31/16 11:10 10/31/16 08:00 10/31/16 11:10 Weight: 73.5 kg - Constitutional Present: no acute distress, well nourished, well developed, thin - Routine HEENT Exam ENT: Present: mucous membranes moist, oropharynx clear - Routine Respiratory Exam Present: CTA bilaterally - Routine Cardiovascular Exam Present: S1, S2 - Routine Abdominal Exam Present: soft, normoactive bowel sounds, non distended, non tender - Routine Extremities Exam Present: no edema, pulses intact, normal capillary refill - Routine Musculoskeletal Exam Musculoskeletal: no clubbing or cyanosis, moving extremities well - Routine Skin Exam Present: intact, dry, warm - Routine Neurological Exam Present: alert - Routine Psychiatric Exam Present: normal affect Results - Labs CBC & Chem 7: 10/23/16 07:15 10/23/16 07:15 Assessment and Plan (1) Normocytic anemia Current visit: Yes Status: Chronic (2) CAD (coronary artery disease) Current visit: Yes Status: Chronic (3) COPD (chronic obstructive pulmonary disease) Current visit: Yes Status: Chronic (4) Lung cancer Problem details: History of lung cancer, s/p chemotherapy Current visit: No Status: Resolved (5) IBS (irritable bowel syndrome) Current visit: Yes Status: Chronic (6) Anxiety Current visit: Yes Status: Chronic (7) Depression Current visit: Yes Status: Chronic (8) Seizure disorder Problem details: Poorly controlled on Lamictal 100mg PO BID Current visit: Yes Status: Chronic (9) Major depressive disorder, recurrent, severe with psychotic features Current visit: Yes Status: Acute (10) Constipation Current visit: Yes Status: Acute Assessment and Plan: Constipation -Moderate formed bowel movement on 10/29/16 Chronic medical conditions overall are stable with the exception of occasional mild tachycardia. Psychiatric note reviewed. Suspect pain is a major contributor to depression and Aspercreme has been ordered. Repeat labs on Thursday for surveillance. Sepsis Assessment - Evaluation Sepsis screening result: No Definite Risk - Focused Exam Vital Signs Temp Pulse Resp BP Pulse Ox 10/31/16 11:10 22 92 10/31/16 08:00 97.3 F 112 H 16 117/67 93 10/31/16 07:50 16 95 Respiratory exam: Present: CTA bilaterally Cardiovascular exam: Present: S1, S2 Capillary refill: < 2-3 Seconds Hospital Course Summary Disclaimer: The visit summary below is not to be considered part of the above Progress Note. Hospital Course: 10/23/16 15:54 Agree with admission 1. [place] [facility] [place]mild hypokalemia and mild KADEN were corrected -CT head and MRI brain did not show acute findings 2. Sz d/o -monitor and continue lamictal -consider increasing antiepileptics -consider neuro consult 3. IBS - reports vomiting and diarrhea and weight loss -check prealbumin -monitor intake 4. chronic conditions - CAD, HLD, COPD, BPH, normocytic anemia -continue home meds & monitor 5. Lung cancer - s/p radiation and chemo (2014) 6. Provide safe, supportive environment 10/25/16- Medical consult Victor Manuel is resting quietly. Percocet resumed Pt is c/o some diarrhea and incontinence on admission. 1 BM documented since admission. Recent CT of head and MRI was negative for mets per H&P (done @ [facility] [place] Sz DO- he appears to have small seizures vs. myoclonus during sleep. He is on Lamictal. Dr. Boyer has been consulted. Could consider adding Depakote. Need to avoid Keppra as it can exacerbate anger/mood disturbance. 10/27/16 Constipation (though hx of diarrhea and IBS) -BM on 10/24 x1 (moderate sized liquid stool) -ask nursing staff to check for fecal impaction -dulcolax suppository & start Senna plus BID -abdomen benign & good PO intake [facility] w/u -lipid panel: relatively normal -vit B12, folate, TSH, prealbumin: normal -RPR nonreactive Psychiatry -Dr. Scott started Risperidone and lorazepam 10/31/16 15:15 Constipation -Moderate formed bowel movement on 10/29/16 Chronic medical conditions overall are stable with the exception of occasional mild tachycardia. Psychiatric note reviewed. Suspect pain is a major contributor to depression and Aspercreme has been ordered.
[2016-10-31] MEDS: OLANZapine ODT 5 MG TABLET PO SCH (21:18)
[2016-10-31] MEDS: SIMVASTATIN 40 MG TABLET PO SCH (21:18)
[2016-10-31] MEDS: LORazepam 0.5 MG TABLET PO SCH (21:18)
[2016-10-31] MEDS: DONEPEZIL 10 MG TABLET PO SCH (21:18)
--- NOTE | 2016-10-31 21:35 | Neuropsych Progress Note ---
[facility] Subjective Date: 11/01/16 - Sujective/Severity of Illness Medications: Acetaminophen (Tylenol) 650 mg PO Q6H PRN PRN Reason: Pain Last Admin: 10/30/16 12:16 Dose: 650 mg Al Hydroxide/Mg Hydroxide (Maalox Plus) 30 ml PO Q6H PRN PRN Reason: Indigestion Last Admin: 10/24/16 09:35 Dose: 30 ml Albuterol/Ipratropium (Duoneb) 3 ml AEROSOL QID [facility] Last Admin: 10/31/16 19:40 Dose: 3 ml Aspirin (Asa) 81 mg PO DAILY [facility] Last Admin: 10/31/16 08:39 Dose: 81 mg Budesonide (Pulmicort Inhalation) 0.5 mg IH BID [facility] Last Admin: 10/31/16 19:40 Dose: 0.5 mg Calcium Polycarbophil (Fiber-Lax) 625 mg PO BID [facility] Last Admin: 10/31/16 20:55 Dose: 625 mg Cholestyramine Resin (Questran Light) 4 g PO Q6H PRN PRN Reason: Diarrhea Cyanocobalamin (Vit B-12) 500 mcg PO DAILY [facility] Last Admin: 10/31/16 08:41 Dose: 500 mcg Donepezil HCl (Aricept) 10 mg PO HS [facility] Last Admin: 10/31/16 21:18 Dose: 10 mg Escitalopram Oxalate (Lexapro) 20 mg PO DAILY [facility] Last Admin: 10/31/16 08:40 Dose: 20 mg Lamotrigine (Lamictal) 100 mg PO TID [facility] Last Admin: 10/31/16 20:55 Dose: 100 mg Lorazepam (Ativan Inj) 0.5 mg IM Q6H PRN PRN Reason: Extreme agitation Lorazepam (Ativan) 0.5 mg PO Q6H PRN PRN Reason: Extreme agitation Last Admin: 10/27/16 22:04 Dose: 0.5 mg Lorazepam (Ativan) 1 mg PO HS [facility] Last Admin: 10/31/16 21:18 Dose: 1 mg Multivitamins/Minerals (Therapeutic - M) 1 tab PO DAILY [facility] Last Admin: 10/31/16 08:41 Dose: 1 tab Olanzapine (Zyprexa Zydis) 7.5 mg PO HS [facility] Last Admin: 10/31/16 21:18 Dose: 7.5 mg [id number] Ethyl Esters (Lovaza) 1 gm PO DAILY [facility] Last Admin: 10/31/16 08:40 Dose: 1 gm Omeprazole (Prilosec) 20 mg PO ACB [facility] Last Admin: 10/31/16 08:39 Dose: 20 mg Oxycodone/Acetaminophen (Percocet 10/325) 1 tab PO 09,15,21 [facility] Last Admin: 10/31/16 20:54 Dose: 1 tab Senna/Docusate Sodium (Senna Plus Tablet) 1 tab PO BID [facility] Last Admin: 10/31/16 20:55 Dose: 1 tab Simvastatin (Zocor) 40 mg PO HS [facility] Last Admin: 10/31/16 21:18 Dose: 40 mg Sodium Chloride (Deep Sea Nasal Moisturizing [place]) 2 spray EA NOSTRIL QID [facility] Last Admin: 10/31/16 20:55 Dose: 2 spray Trolamine Salicylate (Aspercreme) 1 applic TOP PRN PRN Subjective: Patient seen and chart reviewed. Case discussed with treatment team. On interview, patient continues to be depressed, hopeless particularly in regards to pain. Patient has also had a past trial of Cymbalta per but this was discontinued when he began having seizures after a dose increase. Patient apparently has not tried Aspercreme so unsure if helpful. At times patient's makes similar negative/hopeless comments which are not helpful for patient's mood. He endorses continued SI due to poor quality of life related to pain. He is not particularly engaged in discussion of treatment options. Nursing staff report patient has not had any significant behavioral difficulties on the unit. Patient slept well overnight. VSS. Patient is eating well. Psychotropic PRNs required in the past 24 hours: none. Start Time: 18:00 Stop Time: 18:20 Mental Status Exam Vitals: Last Vital Signs Temp 97.3 F 10/31/16 21:06 Pulse 82 10/31/16 21:06 Resp 20 10/31/16 21:06 BP 134/77 10/31/16 21:06 Pulse Ox 94 10/31/16 21:06 Height: 1.75 m Weight: 73.5 kg - Mental Status Exam Muscle Strength/Tone: Weak Dressing: Casual Grooming: Fair Attitude: Guarded Motor Activity: Retardation Eye Contact: Fair Speech: Slowed Volume: Soft Rhythm: Mumbled, Paucity of Language Orientation: Disoriented to time, Oriented to time Mood: Depressed, Tearful Rate of Thoughts: Delayed Thought Organization: Confused (improving) Associations: Illogical (improving) Abstract Reasoning: Impaired, concrete Thought Content: Ruminations, Hopelessness, Helplessness, Somatic Concerns Perception/Psychotic: Hx psychosis, not current Language: Naming Impaired Fund of Knowledge: Poor fund of knowledge Memory: Poor-immediate, Poor-recent Suicidal Ideation: Persistent, Other (was found on [employer] Tracks by police and has made comments to RN consistent) Homicidal Ideation: Intermittent Insight: Impaired Judgement: Impaired Impulse Control: Fair - Laboratory Result Diagrams: 10/23/16 07:15 10/23/16 07:15 Laboratory Results - last 24 hr 10/29/16 04:44 Lamotrigine 5.9 Assessment and Plan (1) Major depressive disorder, recurrent, severe with psychotic features Current visit: Yes Status: Acute (2) Major neurocognitive disorder Problem details: Likely due to multiple etiologies - vascular and seizures Current visit: Yes Status: Chronic (3) Seizure disorder Problem details: Poorly controlled on Lamictal 100mg PO BID Current visit: Yes Status: Chronic (4) IBS (irritable bowel syndrome) Current visit: Yes Status: Chronic (5) COPD (chronic obstructive pulmonary disease) Current visit: Yes Status: Chronic (6) Normocytic anemia Current visit: Yes Status: Chronic (7) CAD (coronary artery disease) Current visit: Yes Status: Chronic Aspercreme ordered PRN QID - asked nursing staff to apply even if patient does not ask. Will ask hospitalist to review pain regimen and for any suggestions ( nerve pain in feet is biggest concern - Lyrica, gabapentin unhelpful and cannot take Cymbalta d/t SZ disorder).
[2016-11-01] MEDS: OMEPRAZOLE 20 MG CAPSULE PO SCH (05:36)
[2016-11-01] MEDS: ASPIRIN 81 MG CHEWABLE TABLET PO SCH (08:42)
[2016-11-01] MEDS: Oxycodone/Apap 10/325 1 TAB PO SCH ×3 (08:42→22:02)
[2016-11-01] MEDS: CALCIUM POLYCARBOPHIL 625 MG TABLET PO SCH ×2 (08:42→22:02)
[2016-11-01] MEDS: OMEGA-3 ACID ESTERS 1 GM CAPSULE PO SCH (08:46)
[2016-11-01] MEDS: CYANOCOBALAMIN (B-12) 500mcg TABLET PO SCH (08:46)
[2016-11-01] MEDS: MULTI-VITAMIN + MINERAL TABLET PO SCH (08:46)
[2016-11-01] MEDS: ESCITALOPRAM 20 MG TABLET PO SCH (08:46)
[2016-11-01] MEDS: SENNA + DOCUSATE TABLET PO SCH ×2 (08:46→22:01)
[2016-11-01] MEDS: LAMOTRIGINE 100 MG TABLET PO SCH ×3 (08:46→22:01)
[2016-11-01] MEDS: SALINE 0.65% NASAL SPRAY 44 ML BOTTLE EA NOSTRIL SCH ×4 (08:47→22:04)
[2016-11-01] MEDS: ACETAMINOPHEN 325 MG TABLET PO PRN (10:42)
[2016-11-01] MEDS: BUDESONIDE INH.SOLN 0.5mg/2ml NEB IH SCH ×2 (10:46→20:10)
[2016-11-01] MEDS: ALBUTEROL/IPRATROPIUM 2.5mg-0.5mg/3ml NEB AEROSOL SCH ×4 (10:46→20:10)
--- NOTE | 2016-11-01 15:40 | Neuropsych Progress Note ---
[facility] Subjective Date: 11/01/16 - Sujective/Severity of Illness Medications: Acetaminophen (Tylenol) 650 mg PO Q6H PRN PRN Reason: Pain Last Admin: 11/01/16 10:42 Dose: 650 mg Al Hydroxide/Mg Hydroxide (Maalox Plus) 30 ml PO Q6H PRN PRN Reason: Indigestion Last Admin: 10/24/16 09:35 Dose: 30 ml Albuterol/Ipratropium (Duoneb) 3 ml AEROSOL QID [facility] Last Admin: 11/01/16 13:32 Dose: 3 ml Aspirin (Asa) 81 mg PO DAILY [facility] Last Admin: 11/01/16 08:42 Dose: 81 mg Budesonide (Pulmicort Inhalation) 0.5 mg IH BID [facility] Last Admin: 11/01/16 10:46 Dose: 0.5 mg Calcium Polycarbophil (Fiber-Lax) 625 mg PO BID [facility] Last Admin: 11/01/16 08:42 Dose: 625 mg Cholestyramine Resin (Questran Light) 4 g PO Q6H PRN PRN Reason: Diarrhea Cyanocobalamin (Vit B-12) 500 mcg PO DAILY [facility] Last Admin: 11/01/16 08:46 Dose: 500 mcg Donepezil HCl (Aricept) 10 mg PO HS [facility] Last Admin: 10/31/16 21:18 Dose: 10 mg Escitalopram Oxalate (Lexapro) 20 mg PO DAILY [facility] Last Admin: 11/01/16 08:46 Dose: 20 mg Lamotrigine (Lamictal) 100 mg PO TID [facility] Last Admin: 11/01/16 15:35 Dose: 100 mg Lorazepam (Ativan Inj) 0.5 mg IM Q6H PRN PRN Reason: Extreme agitation Lorazepam (Ativan) 0.5 mg PO Q6H PRN PRN Reason: Extreme agitation Last Admin: 10/27/16 22:04 Dose: 0.5 mg Lorazepam (Ativan) 1 mg PO HS [facility] Last Admin: 10/31/16 21:18 Dose: 1 mg Multivitamins/Minerals (Therapeutic - M) 1 tab PO DAILY [facility] Last Admin: 11/01/16 08:46 Dose: 1 tab Olanzapine (Zyprexa Zydis) 7.5 mg PO HS [facility] Last Admin: 10/31/16 21:18 Dose: 7.5 mg [id number]-[id number] Ethyl Esters (Lovaza) 1 gm PO DAILY [facility] Last Admin: 11/01/16 08:46 Dose: 1 gm Omeprazole (Prilosec) 20 mg PO ACB [facility] Last Admin: 11/01/16 05:36 Dose: 20 mg Oxycodone/Acetaminophen (Percocet 10/325) 1 tab PO 09,15,21 [facility] Last Admin: 11/01/16 15:35 Dose: 1 tab Senna/Docusate Sodium (Senna Plus Tablet) 1 tab PO BID [facility] Last Admin: 11/01/16 08:46 Dose: 1 tab Simvastatin (Zocor) 40 mg PO HS [facility] Last Admin: 10/31/16 21:18 Dose: 40 mg Sodium Chloride (Deep Sea Nasal Moisturizing [place]) 2 spray EA NOSTRIL QID [facility] Last Admin: 11/01/16 12:30 Dose: 2 spray Trolamine Salicylate (Aspercreme) 1 applic TOP PRN PRN Last Admin: 11/01/16 10:43 Dose: 1 applic Subjective: Patient seen and chart reviewed. Case discussed with treatment team. On interview, patient continues to be depressed/hopeless. He can't say if Aspercreme has been helpful because he says he hasn't been on his feet a lot today. Asked him to continue trial. came later this AM which may have led to increased anxiety this AM. Patient's expresses concern that staff have not been giving patient his medications and he goes along with this. Reassured them both that he has been getting all scheduled medications. He then asks why he can't talk, what's causing that (patient has been talking well and more logical recently). Patient endorses continued SI due to poor quality of life related to pain. Patient denies any adverse side effects related to psychotropic medications. Patient slept well overnight. VSS. Patient is eating well. Psychotropic PRNs required in the past 24 hours: none. Start Time: 13:00 Stop Time: 13:20 Mental Status Exam Vitals: Last Vital Signs Temp 97.9 F 11/01/16 08:00 Pulse 115 H 11/01/16 08:00 Resp 18 11/01/16 13:33 BP 135/70 11/01/16 08:00 Pulse Ox 92 11/01/16 10:45 Height: 1.75 m Weight: 73.5 kg - Mental Status Exam Muscle Strength/Tone: Weak Dressing: Casual Grooming: Fair Attitude: Guarded, Tense Motor Activity: Retardation Eye Contact: Fair Speech: Slowed Volume: Soft Rhythm: Mumbled, Paucity of Language Orientation: Disoriented to time, Oriented to time Mood: Depressed, Tearful Rate of Thoughts: Delayed Thought Organization: Confused (improving) Associations: Illogical (improving) Abstract Reasoning: Impaired, concrete Thought Content: Ruminations, Hopelessness, Helplessness, Somatic Concerns Perception/Psychotic: Hx psychosis, not current Language: Naming Impaired Fund of Knowledge: Poor fund of knowledge Memory: Poor-immediate, Poor-recent Suicidal Ideation: Persistent, Other (was found on [place] Tr[place] by police and has made comments to RN consistent) Homicidal Ideation: Intermittent Insight: Impaired Judgement: Impaired Impulse Control: Fair - Laboratory Result Diagrams: 10/23/16 07:15 10/23/16 07:15 Assessment and Plan (1) Major depressive disorder, recurrent, severe with psychotic features Current visit: Yes Status: Acute (2) Major neurocognitive disorder Problem details: Likely due to multiple etiologies - vascular and seizures Current visit: Yes Status: Chronic (3) Seizure disorder Problem details: Poorly controlled on Lamictal 100mg PO BID Current visit: Yes Status: Chronic (4) IBS (irritable bowel syndrome) Current visit: Yes Status: Chronic (5) COPD (chronic obstructive pulmonary disease) Current visit: Yes Status: Chronic (6) Normocytic anemia Current visit: Yes Status: Chronic (7) CAD (coronary artery disease) Current visit: Yes Status: Chronic Continues attempts along with hospitalist towards better pain control - this seems to be primary factor driving patient's depressed mood, hopelessness.
[2016-11-01] MEDS: DONEPEZIL 10 MG TABLET PO SCH (22:00)
[2016-11-01] MEDS: SIMVASTATIN 40 MG TABLET PO SCH (22:00)
[2016-11-01] MEDS: OLANZapine ODT 5 MG TABLET PO SCH (22:00)
[2016-11-01] MEDS: LORazepam 0.5 MG TABLET PO SCH (22:01)
[2016-11-02] MEDS: ACETAMINOPHEN 325 MG TABLET PO PRN ×2 (05:52→12:23)
[2016-11-02] MEDS: OMEPRAZOLE 20 MG CAPSULE PO SCH (05:52)
[2016-11-02] MEDS: ALBUTEROL/IPRATROPIUM 2.5mg-0.5mg/3ml NEB AEROSOL SCH ×5 (06:50→20:26)
[2016-11-02] MEDS: BUDESONIDE INH.SOLN 0.5mg/2ml NEB IH SCH ×2 (06:50→19:50)
[2016-11-02] MEDS: SALINE 0.65% NASAL SPRAY 44 ML BOTTLE EA NOSTRIL SCH ×3 (08:26→21:37)
[2016-11-02] MEDS: MULTI-VITAMIN + MINERAL TABLET PO SCH (08:27)
[2016-11-02] MEDS: ESCITALOPRAM 20 MG TABLET PO SCH (08:27)
[2016-11-02] MEDS: Oxycodone/Apap 10/325 1 TAB PO SCH ×3 (08:27→21:39)
[2016-11-02] MEDS: ASPIRIN 81 MG CHEWABLE TABLET PO SCH (08:27)
[2016-11-02] MEDS: OMEGA-3 ACID ESTERS 1 GM CAPSULE PO SCH (08:28)
[2016-11-02] MEDS: SENNA + DOCUSATE TABLET PO SCH ×2 (08:28→21:39)
[2016-11-02] MEDS: CALCIUM POLYCARBOPHIL 625 MG TABLET PO SCH ×2 (08:28→21:38)
[2016-11-02] MEDS: CYANOCOBALAMIN (B-12) 500mcg TABLET PO SCH (08:28)
[2016-11-02] MEDS: LAMOTRIGINE 100 MG TABLET PO SCH ×3 (08:29→21:39)
--- NOTE | 2016-11-02 10:16 | Progress Note ---
Subjective: Victor Manuel is seen today in follow up. He report doing fairly well, but continues to deal with LE pain. Chart is reviewed- this has been a recurrent issue. He does report that he has lung cancer; "I had seizures". Is pleasant, cooperative. Objective Vital signs: Temp Pulse Resp BP Pulse Ox 98.0 F 106 H 18 147/70 H 89 L 11/02/16 08:00 11/02/16 08:00 11/02/16 08:00 11/02/16 08:00 11/02/16 08:00 Weight: 73.5 kg - Constitutional Present: no acute distress, well nourished, well developed, thin, cooperative - Routine HEENT Exam Eye: Present: EOMI, PERRL ENT: Present: mucous membranes moist - Routine Respiratory Exam Present: decreased breath sounds, CTA bilaterally, rhonchi (Faint rhonhi in left base. He is not SOA). Absent: accessory muscle use, rales, wheezes - Routine Cardiovascular Exam Present: RRR, S1, S2, no murmur - Routine Abdominal Exam Present: soft, non distended, non tender - Routine Extremities Exam Present: no edema - Routine Musculoskeletal Exam Musculoskeletal: no clubbing or cyanosis, normal strength - Routine Skin Exam Present: intact, dry, warm - Routine Neurological Exam Present: alert - Routine Psychiatric Exam Comments: Pleasant, cooperative. Results - Labs CBC & Chem 7: 10/23/16 07:15 10/23/16 07:15 Assessment and Plan (1) Normocytic anemia Current visit: Yes Status: Chronic (2) CAD (coronary artery disease) Current visit: Yes Status: Chronic (3) COPD (chronic obstructive pulmonary disease) Current visit: Yes Status: Chronic (4) Lung cancer Problem details: History of lung cancer, s/p chemotherapy Current visit: No Status: Resolved (5) IBS (irritable bowel syndrome) Current visit: Yes Status: Chronic (6) Anxiety Current visit: Yes Status: Chronic (7) Depression Current visit: Yes Status: Chronic (8) Seizure disorder Problem details: Poorly controlled on Lamictal 100mg PO BID Current visit: Yes Status: Chronic (9) Major depressive disorder, recurrent, severe with psychotic features Current visit: Yes Status: Acute (10) Constipation Current visit: Yes Status: Acute (11) Neuropathic pain Current visit: Yes Status: Chronic DVT Prophylaxis: other (N/A) GI Prophylaxis: other (PPI) Resuscitation Status: Full Code Assessment and Plan: 11/02/16- *Chronic pain/Neuropathy- Likely secondary to chemo/XRT hx. Will add low dose Gabapentin TID for pain. May need to up-titrate. This will help with sz. px as well. Scheduled Percocet is noted as well. *Lung Ca- chronic,inoperative. *COPD- Isolated low sats. He does not appear SOA. Continue nebulized medications. Will repeat labs today. Concern for UTI on last UA- reassess UA today. Overall, he appears well medically. Will continue to follow. Sepsis Assessment - Evaluation Sepsis screening result: No Definite Risk - Focused Exam Vital Signs Temp Pulse Resp BP Pulse Ox 11/02/16 08:00 98.0 F 106 H 18 147/70 H 89 L Respiratory exam: Present: CTA bilaterally Cardiovascular exam: Present: S1, S2 Capillary refill: < 2-3 Seconds Hospital Course Summary Disclaimer: The visit summary below is not to be considered part of the above Progress Note. Hospital Course: 10/23/16 15:54 Agree with admission 1. [place] [facility] [place] and mild KADEN were corrected -CT head and MRI brain did not show acute findings 2. Sz d/o -monitor and continue lamictal -consider increasing antiepileptics -consider neuro consult 3. IBS - reports vomiting and diarrhea and weight loss -check prealbumin -monitor intake 4. chronic conditions - CAD, HLD, COPD, BPH, normocytic anemia -continue home meds & monitor 5. Lung cancer - s/p radiation and chemo (2014) 6. Provide safe, supportive environment 10/25/16- Medical consult Victor Manuel is resting quietly. Percocet resumed Pt is c/o some diarrhea and incontinence on admission. 1 BM documented since admission. Recent CT of head and MRI was negative for mets per H&P [place] [facility] [place] Sz DO- he appears to have small seizures vs. myoclonus during sleep. He is on Lamictal. Dr. Boyer has been consulted. Could consider adding Depakote. Need to avoid Keppra as it can exacerbate anger/mood disturbance. 10/27/16 Constipation (though hx of diarrhea and IBS) -BM on 10/24 x1 (moderate sized liquid stool) -ask nursing staff to check for fecal impaction -dulcolax suppository & start Senna plus BID -abdomen benign & good PO intake [facility] w/u -lipid panel: relatively normal -vit B12, folate, TSH, prealbumin: normal -RPR nonreactive Psychiatry -Dr. Scott started Risperidone and lorazepam 10/31/16 15:15 Constipation -Moderate formed bowel movement on 10/29/16 Chronic medical conditions overall are stable with the exception of occasional mild tachycardia. Psychiatric note reviewed. Suspect pain is a major contributor to depression and Aspercreme has been ordered. 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 Will add low dose Gabapentin TID for pain. May need to up-titrate. This will help with sz. px as well. Scheduled Percocet is noted as well. *Lung Ca- chronic,inoperative. *COPD- Isolated low sats. He does not appear SOA. Continue nebulized medications. Will repeat labs today. Concern for UTI on last UA- reassess UA today. Overall, he appears well medically. Will continue to follow.
[2016-11-02] MEDS: GABAPENTIN 100 MG CAPSULE PO SCH ×2 (14:34→21:39)
--- NOTE | 2016-11-02 18:42 | Neuropsych Progress Note ---
[facility] Subjective Date: 11/02/16 - Sujective/Severity of Illness Medications: Acetaminophen (Tylenol) 650 mg PO Q6H PRN PRN Reason: Pain Last Admin: 11/02/16 12:23 Dose: 650 mg Al Hydroxide/Mg Hydroxide (Maalox Plus) 30 ml PO Q6H PRN PRN Reason: Indigestion Last Admin: 10/24/16 09:35 Dose: 30 ml Albuterol/Ipratropium (Duoneb) 3 ml AEROSOL QID [facility] Last Admin: 11/02/16 11:40 Dose: 3 ml Aspirin (Asa) 81 mg PO DAILY [facility] Last Admin: 11/02/16 08:27 Dose: 81 mg Budesonide (Pulmicort Inhalation) 0.5 mg IH BID [facility] Last Admin: 11/02/16 06:50 Dose: 0.5 mg Calcium Polycarbophil (Fiber-Lax) 625 mg PO BID [facility] Last Admin: 11/02/16 08:28 Dose: 625 mg Cholestyramine Resin (Questran Light) 4 g PO Q6H PRN PRN Reason: Diarrhea Cyanocobalamin (Vit B-12) 500 mcg PO DAILY [facility] Last Admin: 11/02/16 08:28 Dose: 500 mcg Donepezil HCl (Aricept) 10 mg PO [facility] Last Admin: 11/01/16 22:00 Dose: 10 mg Escitalopram Oxalate (Lexapro) 20 mg PO DAILY [facility] Last Admin: 11/02/16 08:27 Dose: 20 mg Gabapentin (Neurontin) 100 mg PO TID [facility] Last Admin: 11/02/16 14:34 Dose: 100 mg Lamotrigine (Lamictal) 100 mg PO TID [facility] Last Admin: 11/02/16 14:35 Dose: 100 mg Lorazepam (Ativan Inj) 0.5 mg IM Q6H PRN PRN Reason: Extreme agitation Lorazepam (Ativan) 0.5 mg PO Q6H PRN PRN Reason: Extreme agitation Last Admin: 10/27/16 22:04 Dose: 0.5 mg Lorazepam (Ativan) 1 mg PO HS [facility] Last Admin: 11/01/16 22:01 Dose: 1 mg Multivitamins/Minerals (Therapeutic - M) 1 tab PO DAILY [facility] Last Admin: 11/02/16 08:27 Dose: 1 tab Olanzapine (Zyprexa Zydis) 7.5 mg PO HS [facility] Last Admin: 11/01/16 22:00 Dose: 7.5 mg [id number]-1-[id number] Ethyl Esters (Lovaza) 1 gm PO DAILY [facility] Last Admin: 11/02/16 08:28 Dose: 1 gm Omeprazole (Prilosec) 20 mg PO ACB [facility] Last Admin: 11/02/16 05:52 Dose: 20 mg Oxycodone/Acetaminophen (Percocet 10/325) 1 tab PO 09,15,21 [facility] Last Admin: 11/02/16 14:34 Dose: 1 tab Senna/Docusate Sodium (Senna Plus Tablet) 1 tab PO BID [facility] Last Admin: 11/02/16 08:28 Dose: 1 tab Simvastatin (Zocor) 40 mg PO [facility] Last Admin: 11/01/16 22:00 Dose: 40 mg Sodium Chloride (Deep Sea Nasal Moisturizing [place]) 2 spray EA NOSTRIL QID [facility] Last Admin: 11/02/16 12:23 Dose: 2 spray Trolamine Salicylate (Aspercreme) 1 applic TOP PRN PRN Last Admin: 11/02/16 17:38 Dose: 1 applic Subjective: Patient seen and chart reviewed. Case discussed with treatment team. On interview, patient has brighter affect than previously seen, reports his mood is better today and cannot say about SI as he hasn't been walking around a lot on his feet. He feels he slept well last night and showered, which helps his mood. He thinks Aspercreme may be helpful. Complains of feeling weak and having difficulty walking by self, which he is ruminative about. Patient denies any HI or AVH. Patient denies any adverse side effects related to psychotropic medications. Nursing staff report patient is pleasant/cooperative overall and seems to have a brighter affect, no behavioral difficulties. Patient slept 7 hours overnight. VSS. Patient is eating well. Psychotropic PRNs required in the past 24 hours: none. Start Time: 10:00 Stop Time: 10:20 Mental Status Exam Vitals: Last Vital Signs Temp 97.6 F 11/02/16 15:59 Pulse 89 11/02/16 15:59 Resp 16 11/02/16 15:59 BP 131/67 11/02/16 15:59 Pulse Ox 93 11/02/16 15:59 Height: 1.75 m Weight: 73.5 kg - Mental Status Exam Muscle Strength/Tone: Weak Dressing: Casual Grooming: Fair Attitude: Cooperative Motor Activity: Retardation Eye Contact: Fair Speech: Slowed Volume: Soft Rhythm: Mumbled, Paucity of Language Sensory: Alert Orientation: Disoriented to time, Oriented to time Mood: Depressed (slightly improved), Tearful Rate of Thoughts: Delayed Thought Organization: Confused (improving) Associations: Intact Abstract Reasoning: Impaired, concrete Thought Content: Ruminations, Hopelessness, Helplessness, Somatic Concerns Perception/Psychotic: Hx psychosis, not current Language: Naming Impaired Fund of Knowledge: Poor fund of knowledge Memory: Poor-immediate, Poor-recent Suicidal Ideation: Persistent, Other (was found on [place] by police and has made comments to RN consistent) Homicidal Ideation: Denies Insight: Impaired Judgement: Impaired Impulse Control: Fair - Laboratory Result Diagrams: 11/02/16 10:36 11/02/16 10:35 Laboratory Results - last 24 hr 11/02/16 11/02/16 11/02/16 10:35 10:36 16:29 WBC 11.1 H RBC 3.68 L Hgb 12.1 L Hct 38.1 L MCV 103.5 H MCH 32.9 MCHC 31.8 RDW Std Deviation 45.6 Plt Count 318 MPV 8.7 L Immature Gran % (Auto) 0.1 Neut % (Auto) 78.7 H Lymph % (Auto) 11.7 L [place] % (Auto) 8.2 Eos % (Auto) 1.0 Baso % (Auto) 0.3 Neut # 8.7 H Lymph # 1.3 Drew # 0.9 H Eos # 0.1 Baso # 0.0 Abs Immat Gran (auto) 0.01 Turbidity < 20 Sodium 144 Potassium 5.0 Chloride 107 Carbon Dioxide 26 Anion Gap 11 BUN 25.0 H Creatinine 1.2 GFR Calculation 59 BUN/Creatinine Ratio 21 Glucose 103 Calculated Osmolality 281 H Calcium 9.4 Total Bilirubin 0.40 Icterus Index < 2 AST 23 ALT 30 Alkaline Phosphatase 71 Total Protein 6.6 Albumin 4.2 Globulin 2.4 Albumin/Globulin Ratio 1.8 Specimen Hemolysis < 15 Ur Collection Type Not provided Urine Color Yellow Urine Clarity Clear Urine pH 7.5 Ur Specific [place] 1.010 L Urine Protein Negative Urine Glucose (UA) Negative Urine Ketones Negative Urine Occult Blood Negative Urine Nitrate Negative Urine Bilirubin Negative Urine Urobilinogen 0.2 Ur Leukocyte Esterase Negative Urinalysis Comment Microscopic not ind. Assessment and Plan (1) Major depressive disorder, recurrent, severe with psychotic features Current visit: Yes Status: Acute (2) Major neurocognitive disorder Problem details: Likely due to multiple etiologies - vascular and seizures Current visit: Yes Status: Chronic (3) Seizure disorder Problem details: Poorly controlled on Lamictal 100mg PO BID Current visit: Yes Status: Chronic (4) IBS (irritable bowel syndrome) Current visit: Yes Status: Chronic (5) COPD (chronic obstructive pulmonary disease) Current visit: Yes Status: Chronic (6) Normocytic anemia Current visit: Yes Status: Chronic (7) CAD (coronary artery disease) Current visit: Yes Status: Chronic Hospitalist started Gabapentin TID in addition to other med changes - continue to monitor pain and mood, seems to be improving overall.
[2016-11-02] MEDS: OLANZapine ODT 5 MG TABLET PO SCH (21:39)
[2016-11-02] MEDS: DONEPEZIL 10 MG TABLET PO SCH (21:39)
[2016-11-02] MEDS: SIMVASTATIN 40 MG TABLET PO SCH (21:40)
[2016-11-02] MEDS: LORazepam 0.5 MG TABLET PO SCH (21:40)
[2016-11-03] MEDS: SALINE 0.65% NASAL SPRAY 44 ML BOTTLE EA NOSTRIL SCH ×5 (03:16→21:13)
[2016-11-03] MEDS: ACETAMINOPHEN 325 MG TABLET PO PRN (04:22)
[2016-11-03] MEDS: OMEPRAZOLE 20 MG CAPSULE PO SCH (05:58)
[2016-11-03] MEDS: ALBUTEROL/IPRATROPIUM 2.5mg-0.5mg/3ml NEB AEROSOL SCH ×4 (07:25→20:20)
[2016-11-03] MEDS: BUDESONIDE INH.SOLN 0.5mg/2ml NEB IH SCH ×2 (07:25→20:20)
[2016-11-03] MEDS: OMEGA-3 ACID ESTERS 1 GM CAPSULE PO SCH (08:08)
[2016-11-03] MEDS: MULTI-VITAMIN + MINERAL TABLET PO SCH (08:08)
[2016-11-03] MEDS: LAMOTRIGINE 100 MG TABLET PO SCH ×3 (08:08→21:13)
[2016-11-03] MEDS: SENNA + DOCUSATE TABLET PO SCH ×2 (08:08→21:10)
[2016-11-03] MEDS: CALCIUM POLYCARBOPHIL 625 MG TABLET PO SCH ×2 (08:08→21:12)
[2016-11-03] MEDS: ESCITALOPRAM 20 MG TABLET PO SCH (08:08)
[2016-11-03] MEDS: CYANOCOBALAMIN (B-12) 500mcg TABLET PO SCH (08:08)
[2016-11-03] MEDS: ASPIRIN 81 MG CHEWABLE TABLET PO SCH (08:08)
[2016-11-03] MEDS: Oxycodone/Apap 10/325 1 TAB PO SCH ×3 (08:08→21:11)
[2016-11-03] MEDS: GABAPENTIN 100 MG CAPSULE PO SCH ×3 (08:08→21:11)
[2016-11-03] MEDS: SIMVASTATIN 40 MG TABLET PO SCH (21:09)
[2016-11-03] MEDS: DONEPEZIL 10 MG TABLET PO SCH (21:09)
[2016-11-03] MEDS: LORazepam 0.5 MG TABLET PO SCH (21:10)
[2016-11-03] MEDS: OLANZapine ODT 5 MG TABLET PO SCH (21:10)
--- NOTE | 2016-11-03 22:40 | Neuropsych Progress Note ---
[facility] Subjective Date: 11/03/16 - Sujective/Severity of Illness Medications: Acetaminophen (Tylenol) 650 mg PO Q6H PRN PRN Reason: Pain Last Admin: 11/03/16 04:22 Dose: 650 mg Al Hydroxide/Mg Hydroxide (Maalox Plus) 30 ml PO Q6H PRN PRN Reason: Indigestion Last Admin: 10/24/16 09:35 Dose: 30 ml Albuterol/Ipratropium (Duoneb) 3 ml AEROSOL QID [facility] Last Admin: 11/03/16 20:20 Dose: 3 ml Aspirin (Asa) 81 mg PO DAILY [facility] Last Admin: 11/03/16 08:08 Dose: 81 mg Budesonide (Pulmicort Inhalation) 0.5 mg IH BID [facility] Last Admin: 11/03/16 20:20 Dose: 0.5 mg Calcium Polycarbophil (Fiber-Lax) 625 mg PO BID [facility] Last Admin: 11/03/16 21:12 Dose: 625 mg Cholestyramine Resin (Questran Light) 4 g PO Q6H PRN PRN Reason: Diarrhea Cyanocobalamin (Vit B-12) 500 mcg PO DAILY [facility] Last Admin: 11/03/16 08:08 Dose: 500 mcg Donepezil HCl (Aricept) 10 mg PO HS [facility] Last Admin: 11/03/16 21:09 Dose: 10 mg Escitalopram Oxalate (Lexapro) 20 mg PO DAILY [facility] Last Admin: 11/03/16 08:08 Dose: 20 mg Gabapentin (Neurontin) 100 mg PO TID [facility] Last Admin: 11/03/16 21:11 Dose: 100 mg Lamotrigine (Lamictal) 100 mg PO TID [facility] Last Admin: 11/03/16 21:13 Dose: 100 mg Lorazepam (Ativan Inj) 0.5 mg IM Q6H PRN PRN Reason: Extreme agitation Lorazepam (Ativan) 0.5 mg PO Q6H PRN PRN Reason: Extreme agitation Last Admin: 10/27/16 22:04 Dose: 0.5 mg Lorazepam (Ativan) 1 mg PO HS [facility] Last Admin: 11/03/16 21:10 Dose: 1 mg Multivitamins/Minerals (Therapeutic - M) 1 tab PO DAILY [facility] Last Admin: 11/03/16 08:08 Dose: 1 tab Olanzapine (Zyprexa Zydis) 7.5 mg PO HS [facility] Last Admin: 11/03/16 21:10 Dose: 7.5 mg [id number] Ethyl Esters (Lovaza) 1 gm PO DAILY [facility] Last Admin: 11/03/16 08:08 Dose: 1 gm Omeprazole (Prilosec) 20 mg PO ACB [facility] Last Admin: 11/03/16 05:58 Dose: 20 mg Oxycodone/Acetaminophen (Percocet 10/325) 1 tab PO ,15,21 [facility] Last Admin: 11/03/16 21:11 Dose: 1 tab Senna/Docusate Sodium (Senna Plus Tablet) 1 tab PO BID [facility] Last Admin: 11/03/16 21:10 Dose: 1 tab Simvastatin (Zocor) 40 mg PO HS [facility] Last Admin: 11/03/16 21:09 Dose: 40 mg Sodium Chloride (Deep Sea Nasal Moisturizing [place]) 2 spray EA NOSTRIL QID [facility] Last Admin: 11/03/16 21:13 Dose: 2 spray Trolamine Salicylate (Aspercreme) 1 applic TOP PRN PRN Last Admin: 11/02/16 21:38 Dose: 1 applic Subjective: Patient seen, chart reviewed and vitals noted to be stable. Patient was seen in the company of his and was seen to be oriented to time, place and person. He reports having pain on his feet and describes the pain as burning on both of his feet. Patient states that he has history of lung cancer and had some swallowing difficulty after radiotherapy. He denies SI/HI. Start Time: 18:15 Stop Time: 18:30 Mental Status Exam Vitals: Last Vital Signs Temp 96.6 F L 11/03/16 19:22 Pulse 85 11/03/16 19:22 Resp 16 11/03/16 20:20 BP 117/65 11/03/16 19:22 Pulse Ox 95 11/03/16 19:22 Height: 1.75 m Weight: 73.5 kg - Mental Status Exam Muscle Strength/Tone: Weak Dressing: Casual Grooming: Fair Attitude: Cooperative Motor Activity: Retardation Eye Contact: Fair Speech: Slowed Volume: Soft Rhythm: Mumbled, Paucity of Language Orientation: Disoriented to time, Oriented to time Mood: Depressed (slightly improved) Rate of Thoughts: Delayed Thought Organization: Confused (improving) Associations: Intact Abstract Reasoning: Impaired, concrete Thought Content: Ruminations, Hopelessness, Helplessness, Somatic Concerns Perception/Psychotic: Hx psychosis, not current Language: Naming Impaired Fund of Knowledge: Poor fund of knowledge Memory: Poor-immediate, Poor-recent Suicidal Ideation: None, Other (was found on [employer] [place] by police and has made comments to RN consistent) Homicidal Ideation: Denies Insight: Impaired Judgement: Impaired Impulse Control: Fair - Laboratory Result Diagrams: 11/03/16 04:48 11/03/16 04:48 Laboratory Results - last 24 hr 11/03/16 11/03/16 04:48 04:48 WBC 10.8 RBC 3.48 L Hgb 11.7 L Hct 36.2 L MCV 104.0 H MCH 33.6 MCHC 32.3 RDW Std Deviation 45.6 Plt Count 311 MPV 9.1 L Immature Gran % (Auto) 0.2 Neut % (Auto) 70.9 H Lymph % (Auto) 15.1 L [place] % (Auto) 10.1 H Eos % (Auto) 3.2 Baso % (Auto) 0.5 Neut # 7.7 Lymph # 1.6 [place] # 1.1 H Eos # 0.4 Baso # 0.1 Abs Immat Gran (auto) 0.02 Turbidity < 20 Sodium 144 Potassium 4.4 Chloride 107 Carbon Dioxide 25 Anion Gap 12 BUN 23.0 H Creatinine 1.1 GFR Calculation 65 BUN/Creatinine Ratio 21 Glucose 95 Calculated Osmolality 281 H Calcium 8.9 Icterus Index < 2 Specimen Hemolysis < 15 Assessment and Plan (1) Major depressive disorder, recurrent, severe with psychotic features Current visit: Yes Status: Acute (2) CAD (coronary artery disease) Current visit: Yes Status: Chronic (3) COPD (chronic obstructive pulmonary disease) Current visit: Yes Status: Chronic (4) Major neurocognitive disorder Problem details: Likely due to multiple etiologies - vascular and seizures Current visit: Yes Status: Chronic (5) Seizure disorder Problem details: Poorly controlled on Lamictal 100mg PO BID Current visit: Yes Status: Chronic (6) Lung cancer Problem details: History of lung cancer, s/p chemotherapy Current visit: No Status: Resolved Cont current medication.
[2016-11-04] MEDS: ASPIRIN 81 MG CHEWABLE TABLET PO SCH (08:32)
[2016-11-04] MEDS: LAMOTRIGINE 100 MG TABLET PO SCH ×2 (08:32→20:49)
[2016-11-04] MEDS: CALCIUM POLYCARBOPHIL 625 MG TABLET PO SCH ×2 (08:32→20:48)
[2016-11-04] MEDS: OMEGA-3 ACID ESTERS 1 GM CAPSULE PO SCH (08:32)
[2016-11-04] MEDS: OMEPRAZOLE 20 MG CAPSULE PO SCH (08:32)
[2016-11-04] MEDS: GABAPENTIN 100 MG CAPSULE PO SCH (08:32)
[2016-11-04] MEDS: Oxycodone/Apap 10/325 1 TAB PO SCH ×3 (08:32→20:50)
[2016-11-04] MEDS: MULTI-VITAMIN + MINERAL TABLET PO SCH (08:32)
[2016-11-04] MEDS: SENNA + DOCUSATE TABLET PO SCH ×2 (08:33→20:51)
[2016-11-04] MEDS: ESCITALOPRAM 20 MG TABLET PO SCH (08:33)
[2016-11-04] MEDS: CYANOCOBALAMIN (B-12) 500mcg TABLET PO SCH (08:33)
[2016-11-04] MEDS: ALBUTEROL/IPRATROPIUM 2.5mg-0.5mg/3ml NEB AEROSOL SCH ×3 (10:05→20:25)
[2016-11-04] MEDS: BUDESONIDE INH.SOLN 0.5mg/2ml NEB IH SCH ×2 (10:06→20:25)
--- NOTE | 2016-11-04 11:02 | Progress Note ---
Subjective: Victor Manuel was sitting at a table in the dayroom with his . He was pleasant and communicated well. I asked him about his hair, and he repeated what he told me a few days ago - still needs a haircut. He and his both report that the pain in his feet/legs is better, and the cream has been helpful. He denies any problems breathing or chest pain. He denies abdominal pain or nausea. Objective Vital signs: Temp Pulse Resp BP Pulse Ox 97.3 F 104 H 18 149/78 H 96 11/04/16 08:00 11/04/16 08:00 11/04/16 10:01 11/04/16 08:00 11/04/16 10:01 Weight: 73.5 kg - Constitutional Present: no acute distress, well nourished, well developed, thin, cooperative - Routine HEENT Exam ENT: Present: mucous membranes moist, oropharynx clear - Routine Respiratory Exam Present: CTA bilaterally (slightly decreased air movement on right) - Routine Cardiovascular Exam Present: S1, S2 - Routine Abdominal Exam Present: soft, normoactive bowel sounds, non distended, non tender - Routine Extremities Exam Present: no edema, pulses intact, normal capillary refill - Routine Musculoskeletal Exam Musculoskeletal: moving extremities well - Routine Skin Exam Present: intact, dry, warm - Routine Neurological Exam Present: alert - Routine Psychiatric Exam Present: normal affect, normal thought process Results - Labs CBC & Chem 7: 11/03/16 04:48 11/03/16 04:48 Assessment and Plan (1) Normocytic anemia Current visit: Yes Status: Chronic (2) CAD (coronary artery disease) Current visit: Yes Status: Chronic (3) COPD (chronic obstructive pulmonary disease) Current visit: Yes Status: Chronic (4) Lung cancer Problem details: History of lung cancer, s/p chemotherapy Current visit: No Status: Resolved (5) IBS (irritable bowel syndrome) Current visit: Yes Status: Chronic (6) Anxiety Current visit: Yes Status: Chronic (7) Depression Current visit: Yes Status: Chronic (8) Seizure disorder Problem details: Poorly controlled on Lamictal 100mg PO BID Current visit: Yes Status: Chronic (9) Major depressive disorder, recurrent, severe with psychotic features Current visit: Yes Status: Acute (10) Constipation Current visit: Yes Status: Acute (11) Neuropathic pain Current visit: Yes Status: Chronic Assessment and Plan: Pain/neuropathy -reportedly improving; continue meds including Gabapentin & percocet Overall, medically stable - occ mild tachycardia; COPD is stable. Repeat UA was negative. MDD -per attending Sepsis Assessment - Evaluation Sepsis screening result: No Definite Risk - Focused Exam Vital Signs Temp Pulse Resp BP Pulse Ox 11/04/16 10:01 18 96 11/04/16 08:00 97.3 F 104 H 18 149/78 H 94 Respiratory exam: Present: CTA bilaterally Cardiovascular exam: Present: S1, S2 Capillary refill: < 2-3 Seconds Hospital Course Summary Disclaimer: The visit summary below is not to be considered part of the above Progress Note. Hospital Course: 10/23/16 15:54 Agree with admission 1. [place] [facility] [place] and mild KADEN were corrected -CT head and MRI brain did not show acute findings 2. Sz d/o -monitor and continue lamictal -consider increasing antiepileptics -consider neuro consult 3. IBS - reports vomiting and diarrhea and weight loss -check prealbumin -monitor intake 4. chronic conditions - CAD, HLD, COPD, BPH, normocytic anemia -continue home meds & monitor 5. Lung cancer - s/p radiation and chemo (2014) 6. Provide safe, supportive environment 10/25/16- Medical consult Victor Manuel is resting quietly. Percocet resumed Pt is c/o some diarrhea and incontinence on admission. 1 BM documented since admission. Recent CT of head and MRI was negative for mets per H&P [place] [facility] [place] Sz DO- he appears to have small seizures vs. myoclonus during sleep. He is on Lamictal. Dr. Boyer has been consulted. Could consider adding Depakote. Need to avoid Keppra as it can exacerbate anger/mood disturbance. 10/27/16 Constipation (though hx of diarrhea and IBS) -BM on 10/24 x1 (moderate sized liquid stool) -ask nursing staff to check for fecal impaction -dulcolax suppository & start Senna plus BID -abdomen benign & good PO intake [facility] w/u -lipid panel: relatively normal -vit B12, folate, TSH, prealbumin: normal -RPR nonreactive Psychiatry -Dr. Scott started Risperidone and lorazepam 10/31/16 15:15 Constipation -Moderate formed bowel movement on 10/29/16 Chronic medical conditions overall are stable with the exception of occasional mild tachycardia. Psychiatric note reviewed. Suspect pain is a major contributor to depression and Aspercreme has been ordered. 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 Will add low dose Gabapentin TID for pain. May need to up-titrate. This will help with sz. px as well. Scheduled Percocet is noted as well. *Lung Ca- chronic,inoperative. *COPD- Isolated low sats. He does not appear SOA. Continue nebulized medications. Will repeat labs today. Concern for UTI on last UA- reassess UA today. Overall, he appears well medically. Will continue to follow.
[2016-11-04] MEDS: SALINE 0.65% NASAL SPRAY 44 ML BOTTLE EA NOSTRIL SCH ×4 (12:13→20:48)
[2016-11-04] MEDS: GABAPENTIN 300 MG CAPSULE PO SCH ×2 (15:55→20:50)
--- NOTE | 2016-11-04 18:10 | Neuropsych Progress Note ---
[facility] Subjective Date: 11/04/16 - Sujective/Severity of Illness Medications: Acetaminophen (Tylenol) 650 mg PO Q6H PRN PRN Reason: Pain Last Admin: 11/03/16 04:22 Dose: 650 mg Al Hydroxide/Mg Hydroxide (Maalox Plus) 30 ml PO Q6H PRN PRN Reason: Indigestion Last Admin: 10/24/16 09:35 Dose: 30 ml Albuterol/Ipratropium (Duoneb) 3 ml AEROSOL QID [facility] Last Admin: 11/04/16 16:25 Dose: 3 ml Aspirin (Asa) 81 mg PO DAILY [facility] Last Admin: 11/04/16 08:32 Dose: 81 mg Budesonide (Pulmicort Inhalation) 0.5 mg IH BID [facility] Last Admin: 11/04/16 10:06 Dose: 0.5 mg Calcium Polycarbophil (Fiber-Lax) 625 mg PO BID [facility] Last Admin: 11/04/16 08:32 Dose: 625 mg Cholestyramine Resin (Questran Light) 4 g PO Q6H PRN PRN Reason: Diarrhea Cyanocobalamin (Vit B-12) 500 mcg PO DAILY [facility] Last Admin: 11/04/16 08:33 Dose: 500 mcg Donepezil HCl (Aricept) 10 mg PO HS [facility] Last Admin: 11/03/16 21:09 Dose: 10 mg Escitalopram Oxalate (Lexapro) 20 mg PO DAILY [facility] Last Admin: 11/04/16 08:33 Dose: 20 mg Gabapentin (Neurontin) 300 mg PO TID [facility] Last Admin: 11/04/16 15:55 Dose: 300 mg Lamotrigine (Lamictal) 100 mg PO BID [facility] Lorazepam (Ativan Inj) 0.5 mg IM Q6H PRN PRN Reason: Extreme agitation Lorazepam (Ativan) 0.5 mg PO Q6H PRN PRN Reason: Extreme agitation Last Admin: 10/27/16 22:04 Dose: 0.5 mg Lorazepam (Ativan) 1 mg PO [facility] Last Admin: 11/03/16 21:10 Dose: 1 mg Multivitamins/Minerals (Therapeutic - M) 1 tab PO DAILY [facility] Last Admin: 11/04/16 08:32 Dose: 1 tab Olanzapine (Zyprexa Zydis) 7.5 mg PO HS [facility] Last Admin: 11/03/16 21:10 Dose: 7.5 mg [id number] Ethyl Esters (Lovaza) 1 gm PO DAILY [facility] Last Admin: 11/04/16 08:32 Dose: 1 gm Omeprazole (Prilosec) 20 mg PO ACB [facility] Last Admin: 11/04/16 08:32 Dose: 20 mg Oxycodone/Acetaminophen (Percocet 10/325) 1 tab PO ,15,21 [facility] Last Admin: 11/04/16 14:37 Dose: 1 tab Senna/Docusate Sodium (Senna Plus Tablet) 1 tab PO BID [facility] Last Admin: 11/04/16 08:33 Dose: 1 tab Simvastatin (Zocor) 40 mg PO HS [facility] Last Admin: 11/03/16 21:09 Dose: 40 mg Sodium Chloride (Deep Sea Nasal Moisturizing [place]) 2 spray EA NOSTRIL QID [facility] Last Admin: 11/04/16 17:15 Dose: 2 spray Trolamine Salicylate (Aspercreme) 1 applic TOP PRN PRN Last Admin: 11/04/16 09:14 Dose: 1 applic Subjective: Patient seen, chart reviewed and case discussed with staff. Patient states that he has been struggling with poor motivation, depressed mood and often feels like crying. 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 He also continues to have bilateral feet pain. Patient complains of blisters on his upper lip and he was admitted on Lamotrigine 100mg BID which was later increased to 100mg TID. Will back down to 100mg BID and observe patient for another day. Start Time: 13:20 Stop Time: 13:40 Mental Status Exam Vitals: Last Vital Signs Temp 97.8 F 11/04/16 16:00 Pulse 85 11/04/16 16:00 Resp 16 11/04/16 16:25 BP 127/65 11/04/16 16:00 Pulse Ox 95 11/04/16 16:00 Height: 1.75 m Weight: 73.5 kg - Mental Status Exam Muscle Strength/Tone: Weak Dressing: Casual Grooming: Fair Attitude: Cooperative Motor Activity: Retardation Eye Contact: Fair Speech: Slowed Volume: Soft Rhythm: Mumbled, Paucity of Language Orientation: Disoriented to time, Oriented to time Mood: Depressed Rate of Thoughts: Delayed Thought Organization: Confused, Other Associations: Intact Abstract Reasoning: Impaired, concrete Thought Content: Ruminations, Hopelessness, Helplessness, Somatic Concerns Perception/Psychotic: Hx psychosis, not current Language: Naming Impaired Fund of Knowledge: Poor fund of knowledge Memory: Poor-immediate, Poor-recent Suicidal Ideation: None Homicidal Ideation: Denies Insight: Impaired Judgement: Impaired Impulse Control: Fair - Laboratory Result Diagrams: 11/03/16 04:48 11/03/16 04:48 Assessment and Plan (1) Major depressive disorder, recurrent, severe with psychotic features Current visit: Yes Status: Acute (2) CAD (coronary artery disease) Current visit: Yes Status: Chronic (3) COPD (chronic obstructive pulmonary disease) Current visit: Yes Status: Chronic (4) Major neurocognitive disorder Problem details: Likely due to multiple etiologies - vascular and seizures Current visit: Yes Status: Chronic (5) Seizure disorder Problem details: Poorly controlled on Lamictal 100mg PO BID Current visit: Yes Status: Chronic 1. Increase Gabapentin to 300mg TID. 2. Decrease Lamotrigine to 100mg BID. Continue to observe patient.
[2016-11-04] MEDS: DONEPEZIL 10 MG TABLET PO SCH (21:38)
[2016-11-04] MEDS: OLANZapine ODT 5 MG TABLET PO SCH (21:38)
[2016-11-04] MEDS: SIMVASTATIN 40 MG TABLET PO SCH (21:39)
[2016-11-04] MEDS: LORazepam 0.5 MG TABLET PO SCH (21:41)
[2016-11-05] MEDS: ALBUTEROL/IPRATROPIUM 2.5mg-0.5mg/3ml NEB AEROSOL SCH ×5 (08:13→19:00)
[2016-11-05] MEDS: BUDESONIDE INH.SOLN 0.5mg/2ml NEB IH SCH ×2 (08:13→19:00)
[2016-11-05] MEDS: CALCIUM POLYCARBOPHIL 625 MG TABLET PO SCH ×2 (08:21→21:05)
[2016-11-05] MEDS: SENNA + DOCUSATE TABLET PO SCH ×2 (08:22→21:06)
[2016-11-05] MEDS: OMEPRAZOLE 20 MG CAPSULE PO SCH (08:22)
[2016-11-05] MEDS: OMEGA-3 ACID ESTERS 1 GM CAPSULE PO SCH (08:22)
[2016-11-05] MEDS: ESCITALOPRAM 20 MG TABLET PO SCH (08:22)
[2016-11-05] MEDS: MULTI-VITAMIN + MINERAL TABLET PO SCH (08:22)
[2016-11-05] MEDS: CYANOCOBALAMIN (B-12) 500mcg TABLET PO SCH (08:22)
[2016-11-05] MEDS: GABAPENTIN 300 MG CAPSULE PO SCH ×3 (08:22→21:04)
[2016-11-05] MEDS: ASPIRIN 81 MG CHEWABLE TABLET PO SCH (08:22)
[2016-11-05] MEDS: LAMOTRIGINE 100 MG TABLET PO SCH ×2 (08:22→21:08)
[2016-11-05] MEDS: SALINE 0.65% NASAL SPRAY 44 ML BOTTLE EA NOSTRIL SCH ×4 (08:23→21:09)
[2016-11-05] MEDS: Oxycodone/Apap 10/325 1 TAB PO SCH ×3 (08:23→21:05)
--- NOTE | 2016-11-05 14:35 | Neuropsych Progress Note ---
[facility] Subjective Date: 11/05/16 - Sujective/Severity of Illness Medications: Acetaminophen (Tylenol) 650 mg PO Q6H PRN PRN Reason: Pain Last Admin: 11/03/16 04:22 Dose: 650 mg Al Hydroxide/Mg Hydroxide (Maalox Plus) 30 ml PO Q6H PRN PRN Reason: Indigestion Last Admin: 10/24/16 09:35 Dose: 30 ml Albuterol/Ipratropium (Duoneb) 3 ml AEROSOL QID [facility] Last Admin: 11/05/16 11:11 Dose: 3 ml Aspirin (Asa) 81 mg PO DAILY [facility] Last Admin: 11/05/16 08:22 Dose: 81 mg Budesonide (Pulmicort Inhalation) 0.5 mg IH BID [facility] Last Admin: 11/05/16 08:13 Dose: 0.5 mg Calcium Polycarbophil (Fiber-Lax) 625 mg PO BID [facility] Last Admin: 11/05/16 08:21 Dose: 625 mg Cholestyramine Resin (Questran Light) 4 g PO Q6H PRN PRN Reason: Diarrhea Cyanocobalamin (Vit B-12) 500 mcg PO DAILY [facility] Last Admin: 11/05/16 08:22 Dose: 500 mcg Donepezil HCl (Aricept) 10 mg PO HS [facility] Last Admin: 11/04/16 21:38 Dose: 10 mg Escitalopram Oxalate (Lexapro) 20 mg PO DAILY [facility] Last Admin: 11/05/16 08:22 Dose: 20 mg Gabapentin (Neurontin) 300 mg PO TID [facility] Last Admin: 11/05/16 08:22 Dose: 300 mg Lamotrigine (Lamictal) 100 mg PO BID [facility] Last Admin: 11/05/16 08:22 Dose: 100 mg Lorazepam (Ativan Inj) 0.5 mg IM Q6H PRN PRN Reason: Extreme agitation Lorazepam (Ativan) 0.5 mg PO Q6H PRN PRN Reason: Extreme agitation Last Admin: 10/27/16 22:04 Dose: 0.5 mg Lorazepam (Ativan) 1 mg PO HS [facility] Last Admin: 11/04/16 21:41 Dose: 1 mg Multivitamins/Minerals (Therapeutic - M) 1 tab PO DAILY [facility] Last Admin: 11/05/16 08:22 Dose: 1 tab Olanzapine (Zyprexa Zydis) 7.5 mg PO HS [facility] Last Admin: 11/04/16 21:38 Dose: 7.5 mg [id number] Ethyl Esters (Lovaza) 1 gm PO DAILY [facility] Last Admin: 11/05/16 08:22 Dose: 1 gm Omeprazole (Prilosec) 20 mg PO ACB [facility] Last Admin: 11/05/16 08:22 Dose: 20 mg Oxycodone/Acetaminophen (Percocet 10/325) 1 tab PO ,15,21 [facility] Last Admin: 11/05/16 08:23 Dose: 1 tab Senna/Docusate Sodium (Senna Plus Tablet) 1 tab PO BID [facility] Last Admin: 11/05/16 08:22 Dose: 1 tab Simvastatin (Zocor) 40 mg PO [facility] Last Admin: 11/04/16 21:39 Dose: 40 mg Sodium Chloride (Deep Sea Nasal Moisturizing [place]) 2 spray EA NOSTRIL QID [facility] Last Admin: 11/05/16 08:23 Dose: 2 spray Trolamine Salicylate (Aspercreme) 1 applic TOP PRN PRN Last Admin: 11/04/16 09:14 Dose: 1 applic Subjective: Patient seen, chart reviewed and case discussed with staff. Patient was seen in the day room and reports that he had trouble sleeping last night despite documentation of 8 hours of sleep. Patient states that he was laying down on the bed worrying about several things. He looks psychomotorically retarded, but he denies any suicide ideation, intent or plan to hurt himself or some other person. He identifies his protective factor to be his and family. reports that they have a gun at home and they plan to give it away to his son in [place]. His promised to take away the gun and will report back as soon as she dose so. He is currently on Lexapro, Gabapentin, Zyprexa and Lamictal. The later was decreased to 100mg BID yesterday due to some blister on his lip. The blister appears to be stable. Start Time: 12:00 Stop Time: 12:20 Mental Status Exam Vitals: Last Vital Signs Temp 97.4 F 11/05/16 08:00 Pulse 100 11/05/16 08:00 Resp 16 11/05/16 11:12 BP 146/69 H 11/05/16 08:00 Pulse Ox 93 06/21/17 11:12 Height: 1.75 m Weight: 73.1 kg - Mental Status Exam Muscle Strength/Tone: Weak Dressing: Casual Grooming: Fair Attitude: Cooperative Motor Activity: Retardation Eye Contact: Fair Speech: Slowed Volume: Soft Rhythm: Mumbled, Paucity of Language Orientation: Disoriented to time, Oriented to time Mood: Depressed Rate of Thoughts: Delayed Thought Organization: Confused, Other Associations: Intact Abstract Reasoning: Impaired, concrete Thought Content: Ruminations, Hopelessness, Helplessness, Somatic Concerns Perception/Psychotic: Hx psychosis, not current Language: Naming Impaired Fund of Knowledge: Poor fund of knowledge Memory: Poor-immediate, Poor-recent Suicidal Ideation: None, Other (Identifies his as protective.) Homicidal Ideation: Denies Insight: Impaired Judgement: Impaired Impulse Control: Fair - Laboratory Result Diagrams: 11/03/16 04:48 11/03/16 04:48 Assessment and Plan (1) Major depressive disorder, recurrent, severe with psychotic features Current visit: Yes Status: Acute (2) CAD (coronary artery disease) Current visit: Yes Status: Chronic (3) COPD (chronic obstructive pulmonary disease) Current visit: Yes Status: Chronic (4) Major neurocognitive disorder Problem details: Likely due to multiple etiologies - vascular and seizures Current visit: Yes Status: Chronic (5) Seizure disorder Problem details: Poorly controlled on Lamictal 100mg PO BID Current visit: Yes Status: Chronic Start Venlafaxine XR 37.5mg daily with the aim of cross tapering with Lexapro
[2016-11-05] MEDS: OLANZapine ODT 5 MG TABLET PO SCH (21:04)
[2016-11-05] MEDS: SIMVASTATIN 40 MG TABLET PO SCH (21:05)
[2016-11-05] MEDS: DONEPEZIL 10 MG TABLET PO SCH (21:05)
[2016-11-05] MEDS: LORazepam 0.5 MG TABLET PO SCH (21:09)
[2016-11-06] MEDS: ACETAMINOPHEN 325 MG TABLET PO PRN (06:38)
[2016-11-06] MEDS: OMEPRAZOLE 20 MG CAPSULE PO SCH (06:38)
[2016-11-06] MEDS: BUDESONIDE INH.SOLN 0.5mg/2ml NEB IH SCH (07:04)
[2016-11-06] MEDS: ALBUTEROL/IPRATROPIUM 2.5mg-0.5mg/3ml NEB AEROSOL SCH ×4 (07:04→20:10)
[2016-11-06] MEDS: ASPIRIN 81 MG CHEWABLE TABLET PO SCH (08:20)
[2016-11-06] MEDS: Venlafaxine XR 37.5 MG CAPSULE (24hr) PO SCH (08:20)
[2016-11-06] MEDS: OMEGA-3 ACID ESTERS 1 GM CAPSULE PO SCH (08:21)
[2016-11-06] MEDS: GABAPENTIN 300 MG CAPSULE PO SCH ×3 (08:21→21:28)
[2016-11-06] MEDS: CALCIUM POLYCARBOPHIL 625 MG TABLET PO SCH ×2 (08:21→21:27)
[2016-11-06] MEDS: SALINE 0.65% NASAL SPRAY 44 ML BOTTLE EA NOSTRIL SCH ×4 (08:21→21:29)
[2016-11-06] MEDS: ESCITALOPRAM 20 MG TABLET PO SCH (08:21)
[2016-11-06] MEDS: Oxycodone/Apap 10/325 1 TAB PO SCH ×3 (08:21→21:27)
[2016-11-06] MEDS: LAMOTRIGINE 100 MG TABLET PO SCH ×2 (08:21→21:29)
[2016-11-06] MEDS: MULTI-VITAMIN + MINERAL TABLET PO SCH (08:22)
[2016-11-06] MEDS: SENNA + DOCUSATE TABLET PO SCH ×2 (08:22→21:29)
[2016-11-06] MEDS: CYANOCOBALAMIN (B-12) 500mcg TABLET PO SCH (08:22)
--- NOTE | 2016-11-06 11:20 | Progress Note ---
Subjective: Kael is seen today while sitting in the day room watching television. He is alert and pleasant during conversation. He does complain of some generalized back pain which is chronic. He denies feeling short of breath or having chest pain. When asked about GI complaints. He states that he has not had a bowel movement for "2 weeks". Nursing staff confirms his bowels moved yesterday 11/05. Vital signs stable, blood pressure 139/75. Objective Vital signs: Temp Pulse Resp BP Pulse Ox 97.7 F 100 16 139/75 93 11/06/16 07:57 11/06/16 07:57 11/06/16 07:57 11/06/16 07:57 11/06/16 07:57 Weight: 73.1 kg - Constitutional Present: no acute distress, well nourished, well developed, thin, cooperative - Routine HEENT Exam Eye: Present: EOMI, PERRL - Routine Respiratory Exam Present: CTA bilaterally - Routine Cardiovascular Exam Present: RRR, S1, S2 - Routine Abdominal Exam Present: soft, normoactive bowel sounds - Routine Extremities Exam Present: no edema, non tender, full ROM - Routine Back/Spine/Pelvis Exam Back/Spine: Present: full ROM - Routine Skin Exam Present: intact - Routine Neurological Exam Present: alert, CN II-XII intact Results - Labs CBC & Chem 7: 11/03/16 04:48 11/03/16 04:48 Assessment and Plan (1) Normocytic anemia Current visit: Yes Status: Chronic (2) CAD (coronary artery disease) Current visit: Yes Status: Chronic (3) COPD (chronic obstructive pulmonary disease) Current visit: Yes Status: Chronic (4) Lung cancer Problem details: History of lung cancer, s/p chemotherapy Current visit: No Status: Resolved (5) IBS (irritable bowel syndrome) Current visit: Yes Status: Chronic (6) Anxiety Current visit: Yes Status: Chronic (7) Depression Current visit: Yes Status: Chronic (8) Seizure disorder Problem details: Poorly controlled on Lamictal 100mg PO BID Current visit: Yes Status: Chronic (9) Major depressive disorder, recurrent, severe with psychotic features Current visit: Yes Status: Acute (10) Constipation Current visit: Yes Status: Acute (11) Neuropathic pain Current visit: Yes Status: Chronic Assessment and Plan: 11/06 Continue with gabapentin and Percocet for chronic pain. Monitor for constipation. Last bowel movement was yesterday 11/05. Overall medically stable. Vital signs remain normal. Continue psychiatric care as per Sepsis Assessment - Evaluation Sepsis screening result: No Definite Risk Hospital Course Summary Disclaimer: The visit summary below is not to be considered part of the above Progress Note. Hospital Course: 10/23/16 15:54 Agree with admission 1. Records reviewed from [facility] -mild hypokalemia and mild KAEDN were corrected -CT head and MRI brain did not show acute findings 2. Sz d/o -monitor and continue lamictal -consider increasing antiepileptics -consider neuro consult 3. IBS - reports vomiting and diarrhea and weight loss -check prealbumin -monitor intake 4. chronic conditions - CAD, HLD, COPD, BPH, normocytic anemia -continue home meds & monitor 5. Lung cancer - s/p radiation and chemo (2014) 6. Provide safe, supportive environment 10/25/16- Medical consult Victor Manuel is resting quietly. Percocet resumed Pt is c/o some diarrhea and incontinence on admission. 1 BM documented since admission. Recent CT of head and MRI was negative for mets per H&P (done @ [facility]) Sz DO- he appears to have small seizures vs. myoclonus during sleep. He is on Lamictal. Dr. Boyer has been consulted. Could consider adding Depakote. Need to avoid Keppra as it can exacerbate anger/mood disturbance. 10/27/16 Constipation (though hx of diarrhea and IBS) -BM on 10/24 x1 (moderate sized liquid stool) -ask nursing staff to check for fecal impaction -dulcolax suppository & start Senna plus BID -abdomen benign & good PO intake [facility] w/u -lipid panel: relatively normal -vit B12, folate, TSH, prealbumin: normal -RPR nonreactive Psychiatry -Dr. Scott started Risperidone and lorazepam 10/31/16 15:15 Constipation -Moderate formed bowel movement on 10/29/16 Chronic medical conditions overall are stable with the exception of occasional mild tachycardia. Psychiatric note reviewed. Suspect pain is a major contributor to depression and Aspercreme has been ordered. 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 Will add low dose Gabapentin TID for pain. May need to up-titrate. This will help with sz. px as well. Scheduled Percocet is noted as well. *Lung Ca- chronic,inoperative. *COPD- Isolated low sats. He does not appear SOA. Continue nebulized medications. Will repeat labs today. Concern for UTI on last UA- reassess UA today. Overall, he appears well medically. Will continue to follow. 11/06/16 11:20 Continue with gabapentin and Percocet for chronic pain. Monitor for constipation. Last bowel movement was yesterday 11/05. Overall medically stable. Vital signs remain normal. Continue psychiatric care as per
--- NOTE | 2016-11-06 12:29 | Neuropsych Progress Note ---
[facility] Subjective Date: 11/06/16 - Sujective/Severity of Illness Medications: Acetaminophen (Tylenol) 650 mg PO Q6H PRN PRN Reason: Pain Last Admin: 11/06/16 06:38 Dose: 650 mg Al Hydroxide/Mg Hydroxide (Maalox Plus) 30 ml PO Q6H PRN PRN Reason: Indigestion Last Admin: 10/24/16 09:35 Dose: 30 ml Albuterol/Ipratropium (Duoneb) 3 ml AEROSOL QID [facility] Last Admin: 11/06/16 11:41 Dose: 3 ml Aspirin (Asa) 81 mg PO DAILY [facility] Last Admin: 11/06/16 08:20 Dose: 81 mg Budesonide (Pulmicort Inhalation) 0.5 mg IH BID [facility] Last Admin: 11/06/16 07:04 Dose: 0.5 mg Calcium Polycarbophil (Fiber-Lax) 625 mg PO BID [facility] Last Admin: 11/06/16 08:21 Dose: 625 mg Cholestyramine Resin (Questran Light) 4 g PO Q6H PRN PRN Reason: Diarrhea Cyanocobalamin (Vit B-12) 500 mcg PO DAILY [facility] Last Admin: 11/06/16 08:22 Dose: 500 mcg Donepezil HCl (Aricept) 10 mg PO HS [facility] Last Admin: 11/05/16 21:05 Dose: 10 mg Escitalopram Oxalate (Lexapro) 20 mg PO DAILY [facility] Last Admin: 11/06/16 08:21 Dose: 20 mg Gabapentin (Neurontin) 300 mg PO TID [facility] Last Admin: 11/06/16 08:21 Dose: 300 mg Lamotrigine (Lamictal) 100 mg PO BID [facility] Last Admin: 11/06/16 08:21 Dose: 100 mg Lorazepam (Ativan Inj) 0.5 mg IM Q6H PRN PRN Reason: Extreme agitation Lorazepam (Ativan) 0.5 mg PO Q6H PRN PRN Reason: Extreme agitation Last Admin: 10/27/16 22:04 Dose: 0.5 mg Lorazepam (Ativan) 1 mg PO HS [facility] Last Admin: 11/05/16 21:09 Dose: 1 mg Multivitamins/Minerals (Therapeutic - M) 1 tab PO DAILY [facility] Last Admin: 11/06/16 08:22 Dose: 1 tab Olanzapine (Zyprexa Zydis) 7.5 mg PO HS [facility] Last Admin: 11/05/16 21:04 Dose: 7.5 mg Cqknl-3-Xrin Ethyl Esters (Lovaza) 1 gm PO DAILY [facility] Last Admin: 11/06/16 08:21 Dose: 1 gm Omeprazole (Prilosec) 20 mg PO ACB [facility] Last Admin: 11/06/16 06:38 Dose: 20 mg Oxycodone/Acetaminophen (Percocet 10/325) 1 tab PO ,15,21 [facility] Last Admin: 11/06/16 08:21 Dose: 1 tab Senna/Docusate Sodium (Senna Plus Tablet) 1 tab PO BID [facility] Last Admin: 11/06/16 08:22 Dose: 1 tab Simvastatin (Zocor) 40 mg PO HS [facility] Last Admin: 11/05/16 21:05 Dose: 40 mg Sodium Chloride (Deep Sea Nasal Moisturizing [place]) 2 spray EA NOSTRIL QID [facility] Last Admin: 11/06/16 08:21 Dose: 2 spray Trolamine Salicylate (Aspercreme) 1 applic TOP PRN PRN Last Admin: 11/04/16 09:14 Dose: 1 applic Venlafaxine HCl (Effexor Xr) 37.5 mg PO WB [facility] Last Admin: 11/06/16 08:20 Dose: 37.5 mg Subjective: Patient seen, chart reviewed and case discussed with nursing staff. Patient reports that he is doing better today because he had a good night sleep. He was said to have slept for 9.5hours last night and feels rested this morning. His appetite has been good and he continues to deny SI,HI and auditory or visual hallucinations. His plans to remove the gun at home today and will report back when she does so. He was started on Effexor XR 37.5mg today and he denies any side effect. The plan will be to have OT/PT eval today and consider discharge to skilled facility early next week or tomorrow. Patient wants to go home as soon as possible to be with his . Start Time: 10:00 Stop Time: 10:20 Mental Status Exam Vitals: Last Vital Signs Temp 97.7 F 11/06/16 07:57 Pulse 100 11/06/16 07:57 Resp 15 11/06/16 11:42 BP 139/75 11/06/16 07:57 Pulse Ox 93 11/06/16 07:57 Height: 1.75 m Weight: 73.1 kg - Mental Status Exam Muscle Strength/Tone: Weak Dressing: Casual Grooming: Fair Attitude: Cooperative Motor Activity: Retardation (less psychomotor retardation) Eye Contact: Fair Speech: Slowed Volume: Soft Rhythm: Mumbled, Paucity of Language Orientation: Disoriented to time, Oriented to time Mood: Depressed Rate of Thoughts: Delayed Thought Organization: Confused, Other Associations: Intact Abstract Reasoning: Impaired, concrete Thought Content: Ruminations, Hopelessness, Helplessness, Somatic Concerns Perception/Psychotic: Hx psychosis, not current Language: Naming Impaired Fund of Knowledge: Poor fund of knowledge Memory: Poor-immediate, Poor-recent Suicidal Ideation: None, Other (Identifies his as protective.) Homicidal Ideation: Denies Insight: Impaired Judgement: Impaired Impulse Control: Fair - Laboratory Result Diagrams: 11/03/16 04:48 11/03/16 04:48 Assessment and Plan (1) Major depressive disorder, recurrent, severe with psychotic features Current visit: Yes Status: Acute (2) CAD (coronary artery disease) Current visit: Yes Status: Chronic (3) COPD (chronic obstructive pulmonary disease) Current visit: Yes Status: Chronic (4) Major neurocognitive disorder Problem details: Likely due to multiple etiologies - vascular and seizures Current visit: Yes Status: Chronic (5) Seizure disorder Problem details: Poorly controlled on Lamictal 100mg PO BID Current visit: Yes Status: Chronic 1. RN to call his doctor's office where he is scheduled for esophageal dilatation and inform them that he is still in the hosp. Order OT/PT and consider discharge to Skilled facility
[2016-11-06] MEDS: DONEPEZIL 10 MG TABLET PO SCH (21:27)
[2016-11-06] MEDS: SIMVASTATIN 40 MG TABLET PO SCH (21:27)
[2016-11-06] MEDS: LORazepam 0.5 MG TABLET PO SCH (21:28)
[2016-11-06] MEDS: OLANZapine ODT 5 MG TABLET PO SCH (21:28)
[2016-11-07] MEDS: ALBUTEROL/IPRATROPIUM 2.5mg-0.5mg/3ml NEB AEROSOL SCH ×4 (06:54→19:43)
[2016-11-07] MEDS: BUDESONIDE INH.SOLN 0.5mg/2ml NEB IH SCH ×2 (06:54→19:43)
[2016-11-07] MEDS: OMEPRAZOLE 20 MG CAPSULE PO SCH (08:30)
[2016-11-07] MEDS: MULTI-VITAMIN + MINERAL TABLET PO SCH (08:31)
[2016-11-07] MEDS: Venlafaxine XR 37.5 MG CAPSULE (24hr) PO SCH (08:31)
[2016-11-07] MEDS: LAMOTRIGINE 100 MG TABLET PO SCH ×2 (08:31→21:12)
[2016-11-07] MEDS: ESCITALOPRAM 20 MG TABLET PO SCH (08:31)
[2016-11-07] MEDS: CALCIUM POLYCARBOPHIL 625 MG TABLET PO SCH ×2 (08:31→21:11)
[2016-11-07] MEDS: SENNA + DOCUSATE TABLET PO SCH ×2 (08:31→21:14)
[2016-11-07] MEDS: Oxycodone/Apap 10/325 1 TAB PO SCH ×3 (08:31→21:12)
[2016-11-07] MEDS: CYANOCOBALAMIN (B-12) 500mcg TABLET PO SCH (08:31)
[2016-11-07] MEDS: GABAPENTIN 300 MG CAPSULE PO SCH ×3 (08:31→21:12)
[2016-11-07] MEDS: OMEGA-3 ACID ESTERS 1 GM CAPSULE PO SCH (08:31)
[2016-11-07] MEDS: SALINE 0.65% NASAL SPRAY 44 ML BOTTLE EA NOSTRIL SCH ×4 (08:32→21:10)
[2016-11-07] MEDS: ASPIRIN 81 MG CHEWABLE TABLET PO SCH (08:32)
--- NOTE | 2016-11-07 18:00 | Neuropsych Progress Note ---
[facility] Subjective Date: 11/07/16 - Sujective/Severity of Illness Medications: Acetaminophen (Tylenol) 650 mg PO Q6H PRN PRN Reason: Pain Last Admin: 11/06/16 06:38 Dose: 650 mg Al Hydroxide/Mg Hydroxide (Maalox Plus) 30 ml PO Q6H PRN PRN Reason: Indigestion Last Admin: 10/24/16 09:35 Dose: 30 ml Albuterol/Ipratropium (Duoneb) 3 ml AEROSOL QID [facility] Last Admin: 11/07/16 14:45 Dose: 3 ml Aspirin (Asa) 81 mg PO DAILY [facility] Last Admin: 11/07/16 08:32 Dose: 81 mg Budesonide (Pulmicort Inhalation) 0.5 mg IH BID [facility] Last Admin: 11/07/16 06:54 Dose: 0.5 mg Calcium Polycarbophil (Fiber-Lax) 625 mg PO BID [facility] Last Admin: 11/07/16 08:31 Dose: 625 mg Cholestyramine Resin (Questran Light) 4 g PO Q6H PRN PRN Reason: Diarrhea Cyanocobalamin (Vit B-12) 500 mcg PO DAILY [facility] Last Admin: 11/07/16 08:31 Dose: 500 mcg Donepezil HCl (Aricept) 10 mg PO HS [facility] Last Admin: 11/06/16 21:27 Dose: 10 mg Escitalopram Oxalate (Lexapro) 20 mg PO DAILY [facility] Last Admin: 11/07/16 08:31 Dose: 20 mg Gabapentin (Neurontin) 300 mg PO TID [facility] Last Admin: 11/07/16 15:02 Dose: 300 mg Lamotrigine (Lamictal) 100 mg PO BID [facility] Last Admin: 11/07/16 08:31 Dose: 100 mg Lorazepam (Ativan Inj) 0.5 mg IM Q6H PRN PRN Reason: Extreme agitation Lorazepam (Ativan) 0.5 mg PO Q6H PRN PRN Reason: Extreme agitation Last Admin: 10/27/16 22:04 Dose: 0.5 mg Lorazepam (Ativan) 1 mg PO HS [facility] Last Admin: 11/06/16 21:28 Dose: 1 mg Multivitamins/Minerals (Therapeutic - M) 1 tab PO DAILY [facility] Last Admin: 11/07/16 08:31 Dose: 1 tab Olanzapine (Zyprexa Zydis) 7.5 mg PO HS [facility] Last Admin: 11/06/16 21:28 Dose: 7.5 mg [id number] Ethyl Esters (Lovaza) 1 gm PO DAILY [facility] Last Admin: 11/07/16 08:31 Dose: 1 gm Omeprazole (Prilosec) 20 mg PO ACB [facility] Last Admin: 11/07/16 08:30 Dose: 20 mg Oxycodone/Acetaminophen (Percocet 10/325) 1 tab PO 09,15,21 [facility] Last Admin: 11/07/16 15:02 Dose: 1 tab Senna/Docusate Sodium (Senna Plus Tablet) 1 tab PO BID [facility] Last Admin: 11/07/16 08:31 Dose: 1 tab Simvastatin (Zocor) 40 mg PO HS [facility] Last Admin: 11/06/16 21:27 Dose: 40 mg Sodium Chloride (Deep Sea Nasal Moisturizing [place]) 2 spray EA NOSTRIL QID [facility] Last Admin: 11/07/16 17:46 Dose: Not Given Trolamine Salicylate (Aspercreme) 1 applic TOP PRN PRN Last Admin: 11/04/16 09:14 Dose: 1 applic Venlafaxine HCl (Effexor Xr) 37.5 mg PO WB [facility] Last Admin: 11/07/16 08:31 Dose: 37.5 mg Subjective: Pt seen and chart examined. Nursing reports pt has done well on the unit. Pt seems to do better when is present but gets slightly anxious when she is gone. Sleeping and eating well. No behaviors noted. On face to face the pt is pleasant but confused. He is only oriented to self. He reports his mood is stable. He reports tolerating his medication well. Denies pain. is present and agrees the pt is doing well. Start Time: 17:00 Stop Time: 17:15 Mental Status Exam Vitals: Last Vital Signs Temp 98.2 F 11/07/16 08:00 Pulse 90 11/07/16 08:00 Resp 14 11/07/16 14:45 BP 131/64 11/07/16 08:00 Pulse Ox 96 11/07/16 14:45 Height: 1.75 m Weight: 72.5 kg - Mental Status Exam Muscle Strength/Tone: Weak Dressing: Casual Grooming: Fair Attitude: Cooperative Motor Activity: Retardation (less psychomotor retardation) Eye Contact: Fair Speech: Slowed Volume: Soft Rhythm: Mumbled, Paucity of Language Orientation: Disoriented to time, Oriented to time Mood: Depressed Rate of Thoughts: Delayed Thought Organization: Confused, Other Associations: Intact Abstract Reasoning: Impaired, concrete Thought Content: Ruminations, Hopelessness, Helplessness, Somatic Concerns Perception/Psychotic: Hx psychosis, not current Language: Naming Impaired Fund of Knowledge: Poor fund of knowledge Memory: Poor-immediate, Poor-recent Suicidal Ideation: None, Other (Identifies his as protective.) Homicidal Ideation: Denies Insight: Impaired Judgement: Impaired Impulse Control: Fair - Laboratory Result Diagrams: 11/03/16 04:48 11/03/16 04:48 Assessment and Plan (1) Anxiety Current visit: Yes Status: Chronic Continue current care Hospital Course Summary Disclaimer: The visit summary below is not to be considered part of the above Progress Note. Hospital Course: 10/23/16 15:54 Agree with admission 1. Records reviewed from [facility] [place] -mild hypokalemia and mild KADEN were corrected -CT head and MRI brain did not show acute findings 2. Sz d/o -monitor and continue lamictal -consider increasing antiepileptics -consider neuro consult 3. IBS - reports vomiting and diarrhea and weight loss -check prealbumin -monitor intake 4. chronic conditions - CAD, HLD, COPD, BPH, normocytic anemia -continue home meds & monitor 5. Lung cancer - s/p radiation and chemo (2014) 6. Provide safe, supportive environment 10/25/16- Medical consult Victor Manuel is resting quietly. Percocet resumed Pt is c/o some diarrhea and incontinence on admission. 1 BM documented since admission. Recent CT of head and MRI was negative for mets per H&P (done @ [facility] [place]) Sz DO- he appears to have small seizures vs. myoclonus during sleep. He is on Lamictal. Dr. Boyer has been consulted. Could consider adding Depakote. Need to avoid Keppra as it can exacerbate anger/mood disturbance. 10/27/16 Constipation (though hx of diarrhea and IBS) -BM on 10/24 x1 (moderate sized liquid stool) -ask nursing staff to check for fecal impaction -dulcolax suppository & start Senna plus BID -abdomen benign & good PO intake [facility] w/u -lipid panel: relatively normal -vit B12, folate, TSH, prealbumin: normal -RPR nonreactive Psychiatry -Dr. Scott started Risperidone and lorazepam 10/31/16 15:15 Constipation -Moderate formed bowel movement on 10/29/16 Chronic medical conditions overall are stable with the exception of occasional mild tachycardia. Psychiatric note reviewed. Suspect pain is a major contributor to depression and Aspercreme has been ordered. 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 Will add low dose Gabapentin TID for pain. May need to up-titrate. This will help with sz. px as well. Scheduled Percocet is noted as well. *Lung Ca- chronic,inoperative. *COPD- Isolated low sats. He does not appear SOA. Continue nebulized medications. Will repeat labs today. Concern for UTI on last UA- reassess UA today. Overall, he appears well medically. Will continue to follow. 11/06/16 11:20 Continue with gabapentin and Percocet for chronic pain. Monitor for constipation. Last bowel movement was yesterday 11/05. Overall medically stable. Vital signs remain normal. Continue psychiatric care as per
[2016-11-07] MEDS: DONEPEZIL 10 MG TABLET PO SCH (21:12)
[2016-11-07] MEDS: LORazepam 0.5 MG TABLET PO SCH (21:13)
[2016-11-07] MEDS: OLANZapine ODT 5 MG TABLET PO SCH (21:13)
[2016-11-07] MEDS: SIMVASTATIN 40 MG TABLET PO SCH (21:14)
[2016-11-08] MEDS: BUDESONIDE INH.SOLN 0.5mg/2ml NEB IH SCH ×3 (01:00→19:35)
[2016-11-08] MEDS: OMEPRAZOLE 20 MG CAPSULE PO SCH (06:01)
[2016-11-08] MEDS: ALBUTEROL/IPRATROPIUM 2.5mg-0.5mg/3ml NEB AEROSOL SCH ×4 (07:20→19:35)
[2016-11-08] MEDS: ASPIRIN 81 MG CHEWABLE TABLET PO SCH (08:41)
[2016-11-08] MEDS: Venlafaxine XR 37.5 MG CAPSULE (24hr) PO SCH (08:41)
[2016-11-08] MEDS: SALINE 0.65% NASAL SPRAY 44 ML BOTTLE EA NOSTRIL SCH ×5 (08:41→21:01)
[2016-11-08] MEDS: CALCIUM POLYCARBOPHIL 625 MG TABLET PO SCH ×2 (08:41→21:02)
[2016-11-08] MEDS: OMEGA-3 ACID ESTERS 1 GM CAPSULE PO SCH (08:42)
[2016-11-08] MEDS: GABAPENTIN 300 MG CAPSULE PO SCH ×3 (08:42→21:03)
[2016-11-08] MEDS: Oxycodone/Apap 10/325 1 TAB PO SCH ×3 (08:42→21:03)
[2016-11-08] MEDS: ESCITALOPRAM 20 MG TABLET PO SCH (08:42)
[2016-11-08] MEDS: SENNA + DOCUSATE TABLET PO SCH ×2 (08:42→21:04)
[2016-11-08] MEDS: LAMOTRIGINE 100 MG TABLET PO SCH ×2 (08:42→21:03)
[2016-11-08] MEDS: MULTI-VITAMIN + MINERAL TABLET PO SCH (08:42)
[2016-11-08] MEDS: CYANOCOBALAMIN (B-12) 500mcg TABLET PO SCH (08:43)
--- NOTE | 2016-11-08 11:34 | Neuropsych Progress Note ---
[facility] Subjective Date: 11/08/16 - Sujective/Severity of Illness Medications: Acetaminophen (Tylenol) 650 mg PO Q6H PRN PRN Reason: Pain Last Admin: 11/06/16 06:38 Dose: 650 mg Al Hydroxide/Mg Hydroxide (Maalox Plus) 30 ml PO Q6H PRN PRN Reason: Indigestion Last Admin: 10/24/16 09:35 Dose: 30 ml Albuterol/Ipratropium (Duoneb) 3 ml AEROSOL RTQID [facility] Last Admin: 11/08/16 10:20 Dose: 3 ml Aspirin (Asa) 81 mg PO DAILY [facility] Last Admin: 11/08/16 08:41 Dose: 81 mg Budesonide (Pulmicort Inhalation) 0.5 mg IH BID [facility] Last Admin: 11/08/16 07:20 Dose: 0.5 mg Calcium Polycarbophil (Fiber-Lax) 625 mg PO BID [facility] Last Admin: 11/08/16 08:41 Dose: 625 mg Cholestyramine Resin (Questran Light) 4 g PO Q6H PRN PRN Reason: Diarrhea Cyanocobalamin (Vit B-12) 500 mcg PO DAILY [facility] Last Admin: 11/08/16 08:43 Dose: 500 mcg Donepezil HCl (Aricept) 10 mg PO HS [facility] Last Admin: 11/07/16 21:12 Dose: 10 mg Escitalopram Oxalate (Lexapro) 20 mg PO DAILY [facility] Last Admin: 11/08/16 08:42 Dose: 20 mg Gabapentin (Neurontin) 300 mg PO TID [facility] Last Admin: 11/08/16 08:42 Dose: 300 mg Lamotrigine (Lamictal) 100 mg PO BID [facility] Last Admin: 11/08/16 08:42 Dose: 100 mg Lorazepam (Ativan Inj) 0.5 mg IM Q6H PRN PRN Reason: Extreme agitation Lorazepam (Ativan) 0.5 mg PO Q6H PRN PRN Reason: Extreme agitation Last Admin: 10/27/16 22:04 Dose: 0.5 mg Lorazepam (Ativan) 1 mg PO HS [facility] Last Admin: 11/07/16 21:13 Dose: 1 mg Multivitamins/Minerals (Therapeutic - M) 1 tab PO DAILY [facility] Last Admin: 11/08/16 08:42 Dose: 1 tab Olanzapine (Zyprexa Zydis) 7.5 mg PO HS [facility] Last Admin: 11/07/16 21:13 Dose: 7.5 mg [id number] Ethyl Esters (Lovaza) 1 gm PO DAILY [facility] Last Admin: 11/08/16 08:42 Dose: 1 gm Omeprazole (Prilosec) 20 mg PO ACB [facility] Last Admin: 11/08/16 06:01 Dose: 20 mg Oxycodone/Acetaminophen (Percocet 10/325) 1 tab PO ,15, [facility] Last Admin: 11/08/16 08:42 Dose: 1 tab Senna/Docusate Sodium (Senna Plus Tablet) 1 tab PO BID [facility] Last Admin: 11/08/16 08:42 Dose: 1 tab Simvastatin (Zocor) 40 mg PO HS [facility] Last Admin: 11/07/16 21:14 Dose: 40 mg Sodium Chloride (Deep Sea Nasal Moisturizing [place]) 2 spray EA NOSTRIL QID [facility] Last Admin: 11/08/16 08:50 Dose: Not Given Trolamine Salicylate (Aspercreme) 1 applic TOP PRN PRN Last Admin: 11/04/16 09:14 Dose: 1 applic Venlafaxine HCl (Effexor Xr) 37.5 mg PO WB [facility] Last Admin: 11/08/16 08:41 Dose: 37.5 mg Subjective: Pt seen and chart examined. Nursing reports pt has done well on the unit. Pt seems to do better when is present but gets slightly anxious when she is gone. Sleeping and eating well. No behaviors noted. On face to face the pt states he is doing well. Flip [id number] no concerns at this time. Tolerating meds Start Time: 11:00 Stop Time: 11:15 Mental Status Exam Vitals: Last Vital Signs Temp 97.6 F 11/08/16 08:00 Pulse 104 H 11/08/16 08:00 Resp 16 11/08/16 10:20 BP 120/78 11/08/16 08:00 Pulse Ox 97 11/08/16 10:20 Height: 1.75 m Weight: 72.5 kg - Mental Status Exam Muscle Strength/Tone: Weak Dressing: Casual Grooming: Good, Fair Attitude: Cooperative Motor Activity: Retardation (less psychomotor retardation) Eye Contact: Fair Speech: Slowed Volume: Soft Rhythm: Mumbled, Paucity of Language Orientation: Disoriented to time, Oriented to time Mood: Euthymic, Depressed Affect: Relaxed Rate of Thoughts: Delayed Thought Organization: Confused, Other Associations: Intact Abstract Reasoning: Impaired, concrete Thought Content: Normal, Ruminations, Hopelessness, Helplessness, Somatic Concerns Perception/Psychotic: Hx psychosis, not current Language: Naming Impaired Fund of Knowledge: Poor fund of knowledge Memory: Poor-immediate, Poor-recent Suicidal Ideation: None, Other (Identifies his as protective.) Homicidal Ideation: Denies Insight: Impaired Judgement: Impaired Impulse Control: Fair - Laboratory Result Diagrams: 11/03/16 04:48 11/03/16 04:48 Assessment and Plan (1) Anxiety Current visit: Yes Status: Chronic (2) Major neurocognitive disorder Problem details: Likely due to multiple etiologies - vascular and seizures Current visit: Yes Status: Chronic Hospital Course Summary Disclaimer: The visit summary below is not to be considered part of the above Progress Note. Hospital Course: 10/23/16 15:54 Agree with admission 1. Records reviewed from [facility] [place] -mild hypokalemia and mild KADEN were corrected -CT head and MRI brain did not show acute findings 2. Sz d/o -monitor and continue lamictal -consider increasing antiepileptics -consider neuro consult 3. IBS - reports vomiting and diarrhea and weight loss -check prealbumin -monitor intake 4. chronic conditions - CAD, HLD, COPD, BPH, normocytic anemia -continue home meds & monitor 5. Lung cancer - s/p radiation and chemo (2014) 6. Provide safe, supportive environment 10/25/16- Medical consult Victor Manuel is resting quietly. Percocet resumed Pt is c/o some diarrhea and incontinence on admission. 1 BM documented since admission. Recent CT of head and MRI was negative for mets per H&P (done @ [facility] [place]) Sz DO- he appears to have small seizures vs. myoclonus during sleep. He is on Lamictal. Dr. Boyer has been consulted. Could consider adding Depakote. Need to avoid Keppra as it can exacerbate anger/mood disturbance. 10/27/16 Constipation (though hx of diarrhea and IBS) -BM on 10/24 x1 (moderate sized liquid stool) -ask nursing staff to check for fecal impaction -dulcolax suppository & start Senna plus BID -abdomen benign & good PO intake [facility] w/u -lipid panel: relatively normal -vit B12, folate, TSH, prealbumin: normal -RPR nonreactive Psychiatry -Dr. Scott started Risperidone and lorazepam 10/31/16 15:15 Constipation -Moderate formed bowel movement on 10/29/16 Chronic medical conditions overall are stable with the exception of occasional mild tachycardia. Psychiatric note reviewed. Suspect pain is a major contributor to depression and Aspercreme has been ordered. 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 Will add low dose Gabapentin TID for pain. May need to up-titrate. This will help with sz. px as well. Scheduled Percocet is noted as well. *Lung Ca- chronic,inoperative. *COPD- Isolated low sats. He does not appear SOA. Continue nebulized medications. Will repeat labs today. Concern for UTI on last UA- reassess UA today. Overall, he appears well medically. Will continue to follow. 11/06/16 11:20 Continue with gabapentin and Percocet for chronic pain. Monitor for constipation. Last bowel movement was yesterday 11/05. Overall medically stable. Vital signs remain normal. Continue psychiatric care as per 11/08/16 11:34 Continue current care
--- NOTE | 2016-11-08 13:15 | Progress Note ---
Subjective: Kael is seen this afternoon while resting in his room with at the bedside. liv clay is alert and pleasant and in no distress. voices concern that he is paranoid about staff stealing his clothes. He states that he is concerned about his bowels as his regular pattern seems to be either constipated or diarrhea. Last reported bowel movement was this morning, however,it was a very hard small amount. His abdomen is soft and nontender. He denies having abdominal pain, chest pain or shortness of breath. His appetite is good. Objective Vital signs: Temp Pulse Resp BP Pulse Ox 97.6 F 104 H 16 120/78 97 11/08/16 08:00 11/08/16 08:00 11/08/16 10:20 11/08/16 08:00 11/08/16 10:20 Weight: 72.5 kg - Constitutional Present: no acute distress, well nourished, well developed, thin, cooperative - Routine HEENT Exam Head: Present: normocephalic, atraumatic Eye: Present: EOMI, PERRL ENT: Present: mucous membranes moist - Routine Respiratory Exam Present: CTA bilaterally - Routine Cardiovascular Exam Present: RRR, S1, S2, no murmur - Routine Abdominal Exam Present: soft, normoactive bowel sounds, non distended, non tender - Routine Extremities Exam Present: full ROM - Routine Back/Spine/Pelvis Exam Back/Spine: Present: full ROM - Routine Skin Exam Present: intact, warm - Routine Neurological Exam Present: alert, oriented X3, CN II-XII intact - Routine Psychiatric Exam Present: normal affect, normal thought process Results - Labs CBC & Chem 7: 11/03/16 04:48 11/03/16 04:48 Assessment and Plan (1) Normocytic anemia Current visit: Yes Status: Chronic (2) CAD (coronary artery disease) Current visit: Yes Status: Chronic (3) COPD (chronic obstructive pulmonary disease) Current visit: Yes Status: Chronic (4) Lung cancer Problem details: History of lung cancer, s/p chemotherapy Current visit: No Status: Resolved (5) IBS (irritable bowel syndrome) Current visit: Yes Status: Chronic (6) Anxiety Current visit: Yes Status: Chronic (7) Depression Current visit: Yes Status: Chronic (8) Seizure disorder Problem details: Poorly controlled on Lamictal 100mg PO BID Current visit: Yes Status: Chronic (9) Major depressive disorder, recurrent, severe with psychotic features Current visit: Yes Status: Acute (10) Constipation Current visit: Yes Status: Acute (11) Neuropathic pain Current visit: Yes Status: Chronic Assessment and Plan: 11/08 Discussed with patient and regarding using caution with bowel regimen. He continues on senna plus BID. Will add MOM and ask staff to give a dose now. Bowel movement from this morning is reported to be small hard balls Continue with Aspercreme topically, gabapentin and Percocet for chronic pain. Overall medically stable. Vital signs remain normal. Continue psychiatric care as per Dr. Cruz Sepsis Assessment - Evaluation Sepsis screening result: No Definite Risk Hospital Course Summary Disclaimer: The visit summary below is not to be considered part of the above Progress Note. Hospital Course: 10/23/16 15:54 Agree with admission 1. Records reviewed from [facility] [place] -mild hypokalemia and mild KADEN were corrected -CT head and MRI brain did not show acute findings 2. Sz d/o -monitor and continue lamictal -consider increasing antiepileptics -consider neuro consult 3. IBS - reports vomiting and diarrhea and weight loss -check prealbumin -monitor intake 4. chronic conditions - CAD, HLD, COPD, BPH, normocytic anemia -continue home meds & monitor 5. Lung cancer - s/p radiation and chemo (2014) 6. Provide safe, supportive environment 10/25/16- Medical consult Victor Manuel is resting quietly. Percocet resumed Pt is c/o some diarrhea and incontinence on admission. 1 BM documented since admission. Recent CT of head and MRI was negative for mets per H&P (done @ [facility] [place]) Sz DO- he appears to have small seizures vs. myoclonus during sleep. He is on Lamictal. Dr. Boyer has been consulted. Could consider adding Depakote. Need to avoid Keppra as it can exacerbate anger/mood disturbance. 10/27/16 Constipation (though hx of diarrhea and IBS) -BM on 10/24 x1 (moderate sized liquid stool) -ask nursing staff to check for fecal impaction -dulcolax suppository & start Senna plus BID -abdomen benign & good PO intake [facility] w/u -lipid panel: relatively normal -vit B12, folate, TSH, prealbumin: normal -RPR nonreactive Psychiatry -Dr. Scott started Risperidone and lorazepam 10/31/16 15:15 Constipation -Moderate formed bowel movement on 10/29/16 Chronic medical conditions overall are stable with the exception of occasional mild tachycardia. Psychiatric note reviewed. Suspect pain is a major contributor to depression and Aspercreme has been ordered. 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 Will add low dose Gabapentin TID for pain. May need to up-titrate. This will help with sz. px as well. Scheduled Percocet is noted as well. *Lung Ca- chronic,inoperative. *COPD- Isolated low sats. He does not appear SOA. Continue nebulized medications. Will repeat labs today. Concern for UTI on last UA- reassess UA today. Overall, he appears well medically. Will continue to follow. 11/06/16 11:20 Continue with gabapentin and Percocet for chronic pain. Monitor for constipation. Last bowel movement was yesterday 11/05. Overall medically stable. Vital signs remain normal. Continue psychiatric care as per 11/08/16 11:34 Continue current care
[2016-11-08] MEDS: LORazepam 0.5 MG TABLET PO SCH (21:04)
[2016-11-08] MEDS: DONEPEZIL 10 MG TABLET PO SCH (21:04)
[2016-11-08] MEDS: SIMVASTATIN 40 MG TABLET PO SCH (21:05)
[2016-11-08] MEDS: OLANZapine ODT 5 MG TABLET PO SCH (21:05)
[2016-11-09] MEDS: OMEPRAZOLE 20 MG CAPSULE PO SCH (06:46)
[2016-11-09] MEDS: BUDESONIDE INH.SOLN 0.5mg/2ml NEB IH SCH ×2 (07:03→19:10)
[2016-11-09] MEDS: Venlafaxine XR 37.5 MG CAPSULE (24hr) PO SCH (08:06)
[2016-11-09] MEDS: LAMOTRIGINE 100 MG TABLET PO SCH ×2 (08:06→22:10)
[2016-11-09] MEDS: MULTI-VITAMIN + MINERAL TABLET PO SCH (08:07)
[2016-11-09] MEDS: ESCITALOPRAM 20 MG TABLET PO SCH (08:07)
[2016-11-09] MEDS: CALCIUM POLYCARBOPHIL 625 MG TABLET PO SCH ×2 (08:07→22:16)
[2016-11-09] MEDS: CYANOCOBALAMIN (B-12) 500mcg TABLET PO SCH (08:07)
[2016-11-09] MEDS: GABAPENTIN 300 MG CAPSULE PO SCH ×3 (08:07→22:12)
[2016-11-09] MEDS: SALINE 0.65% NASAL SPRAY 44 ML BOTTLE EA NOSTRIL SCH ×4 (08:07→22:12)
[2016-11-09] MEDS: Oxycodone/Apap 10/325 1 TAB PO SCH ×3 (08:07→22:11)
[2016-11-09] MEDS: ASPIRIN 81 MG CHEWABLE TABLET PO SCH (08:07)
[2016-11-09] MEDS: OMEGA-3 ACID ESTERS 1 GM CAPSULE PO SCH (08:07)
[2016-11-09] MEDS: SENNA + DOCUSATE TABLET PO SCH ×2 (08:07→22:11)
[2016-11-09] MEDS ORDERED: BISACODYL 10 MG SUPPOSITORY RECTALLY PRN (08:58)
[2016-11-09] MEDS: ALBUTEROL/IPRATROPIUM 2.5mg-0.5mg/3ml NEB AEROSOL SCH ×3 (11:06→19:10)
--- NOTE | 2016-11-09 12:42 | Neuropsych Progress Note ---
[facility] Subjective Date: 11/09/16 - Sujective/Severity of Illness Medications: Acetaminophen (Tylenol) 650 mg PO Q6H PRN PRN Reason: Pain Last Admin: 11/06/16 06:38 Dose: 650 mg Al Hydroxide/Mg Hydroxide (Maalox Plus) 30 ml PO Q6H PRN PRN Reason: Indigestion Last Admin: 10/24/16 09:35 Dose: 30 ml Albuterol/Ipratropium (Duoneb) 3 ml AEROSOL RTQID [facility] Last Admin: 11/09/16 11:06 Dose: 3 ml Aspirin (Asa) 81 mg PO DAILY [facility] Last Admin: 11/09/16 08:07 Dose: 81 mg Bisacodyl (Dulcolax) 10 mg RECTALLY DAILY PRN PRN Reason: Constipation Last Admin: 11/09/16 09:45 Dose: 10 mg Budesonide (Pulmicort Inhalation) 0.5 mg IH BID [facility] Last Admin: 11/09/16 07:03 Dose: 0.5 mg Calcium Polycarbophil (Fiber-Lax) 625 mg PO BID [facility] Last Admin: 11/09/16 08:07 Dose: 625 mg Cholestyramine Resin (Questran Light) 4 g PO Q6H PRN PRN Reason: Diarrhea Cyanocobalamin (Vit B-12) 500 mcg PO DAILY [facility] Last Admin: 11/09/16 08:07 Dose: 500 mcg Donepezil HCl (Aricept) 10 mg PO HS [facility] Last Admin: 11/08/16 21:04 Dose: 10 mg Escitalopram Oxalate (Lexapro) 20 mg PO DAILY [facility] Last Admin: 11/09/16 08:07 Dose: 20 mg Gabapentin (Neurontin) 300 mg PO TID [facility] Last Admin: 11/09/16 08:07 Dose: 300 mg Lamotrigine (Lamictal) 100 mg PO BID [facility] Last Admin: 11/09/16 08:06 Dose: 100 mg Lorazepam (Ativan Inj) 0.5 mg IM Q6H PRN PRN Reason: Extreme agitation Lorazepam (Ativan) 0.5 mg PO Q6H PRN PRN Reason: Extreme agitation Last Admin: 10/27/16 22:04 Dose: 0.5 mg Lorazepam (Ativan) 1 mg PO HS [facility] Last Admin: 11/08/16 21:04 Dose: 1 mg Magnesium Hydroxide (Mom) 30 ml PO DAILY PRN PRN Reason: Constipation Last Admin: 11/08/16 15:19 Dose: 30 ml Multivitamins/Minerals (Therapeutic - M) 1 tab PO DAILY [facility] Last Admin: 11/09/16 08:07 Dose: 1 tab Olanzapine (Zyprexa Zydis) 7.5 mg PO HS [facility] Last Admin: 11/08/16 21:05 Dose: 7.5 mg Cnooh-3-Mtrj Ethyl Esters (Lovaza) 1 gm PO DAILY [facility] Last Admin: 11/09/16 08:07 Dose: 1 gm Omeprazole (Prilosec) 20 mg PO ACB [facility] Last Admin: 11/09/16 06:46 Dose: 20 mg Oxycodone/Acetaminophen (Percocet 10/325) 1 tab PO 09,15,21 [facility] Last Admin: 11/09/16 08:07 Dose: 1 tab Senna/Docusate Sodium (Senna Plus Tablet) 1 tab PO BID [facility] Last Admin: 11/09/16 08:07 Dose: 1 tab Simvastatin (Zocor) 40 mg PO HS [facility] Last Admin: 11/08/16 21:05 Dose: 40 mg Sodium Chloride (Deep Sea Nasal Moisturizing [place]) 2 spray EA NOSTRIL QID [facility] Last Admin: 11/09/16 08:07 Dose: 2 spray Trolamine Salicylate (Aspercreme) 1 applic TOP PRN PRN Last Admin: 11/08/16 21:00 Dose: 1 applic Venlafaxine HCl (Effexor Xr) 37.5 mg PO WB [facility] Last Admin: 11/09/16 08:06 Dose: 37.5 mg Subjective: Pt seen and chart examined. Nursing reports pt has done well on the unit. Sleeping well and has a good appetite. No behaviors noted. On face to face the pt states he is doing well. He voices no concerns at this time. Tolerating meds Start Time: 11:30 Stop Time: 11:45 Mental Status Exam Vitals: Last Vital Signs Temp 97.0 F 11/09/16 08:00 Pulse 91 11/09/16 08:00 Resp 16 11/09/16 11:00 BP 133/67 11/09/16 08:00 Pulse Ox 95 11/09/16 11:00 Height: 1.75 m Weight: 72.5 kg - Mental Status Exam Muscle Strength/Tone: Weak Dressing: Casual Grooming: Good Attitude: Cooperative Motor Activity: Normal Eye Contact: Good Speech: Slowed Volume: Soft Rhythm: Mumbled, Paucity of Language Orientation: Disoriented to time, Oriented to time Mood: Euthymic, Depressed Rate of Thoughts: Delayed Thought Organization: Confused, Other Associations: Intact Abstract Reasoning: Impaired, concrete Thought Content: Normal, Ruminations, Hopelessness, Helplessness, Somatic Concerns Perception/Psychotic: Hx psychosis, not current Language: Naming Impaired Fund of Knowledge: Poor fund of knowledge Memory: Poor-immediate, Poor-recent Suicidal Ideation: None, Other (Identifies his as protective.) Homicidal Ideation: Denies Insight: Impaired Judgement: Impaired Impulse Control: Fair - Laboratory Result Diagrams: 11/03/16 04:48 11/03/16 04:48 Assessment and Plan (1) Anxiety Current visit: Yes Status: Chronic (2) Major neurocognitive disorder Problem details: Likely due to multiple etiologies - vascular and seizures Current visit: Yes Status: Chronic Hospital Course Summary Disclaimer: The visit summary below is not to be considered part of the above Progress Note. Hospital Course: 10/23/16 15:54 Agree with admission 1. Records reviewed from [facility] [place] -mild hypokalemia and mild KADEN were corrected -CT head and MRI brain did not show acute findings 2. Sz d/o -monitor and continue lamictal -consider increasing antiepileptics -consider neuro consult 3. IBS - reports vomiting and diarrhea and weight loss -check prealbumin -monitor intake 4. chronic conditions - CAD, HLD, COPD, BPH, normocytic anemia -continue home meds & monitor 5. Lung cancer - s/p radiation and chemo (2014) 6. Provide safe, supportive environment 10/25/16- Medical consult Victor Manuel is resting quietly. Percocet resumed Pt is c/o some diarrhea and incontinence on admission. 1 BM documented since admission. Recent CT of head and MRI was negative for mets per H&P (done @ [facility] [place]) Sz DO- he appears to have small seizures vs. myoclonus during sleep. He is on Lamictal. Dr. Boyer has been consulted. Could consider adding Depakote. Need to avoid Keppra as it can exacerbate anger/mood disturbance. 10/27/16 Constipation (though hx of diarrhea and IBS) -BM on 10/24 x1 (moderate sized liquid stool) -ask nursing staff to check for fecal impaction -dulcolax suppository & start Senna plus BID -abdomen benign & good PO intake [facility] w/u -lipid panel: relatively normal -vit B12, folate, TSH, prealbumin: normal -RPR nonreactive Psychiatry -Dr. Scott started Risperidone and lorazepam 10/31/16 15:15 Constipation -Moderate formed bowel movement on 10/29/16 Chronic medical conditions overall are stable with the exception of occasional mild tachycardia. Psychiatric note reviewed. Suspect pain is a major contributor to depression and Aspercreme has been ordered. 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 Will add low dose Gabapentin TID for pain. May need to up-titrate. This will help with sz. px as well. Scheduled Percocet is noted as well. *Lung Ca- chronic,inoperative. *COPD- Isolated low sats. He does not appear SOA. Continue nebulized medications. Will repeat labs today. Concern for UTI on last UA- reassess UA today. Overall, he appears well medically. Will continue to follow. 11/06/16 11:20 Continue with gabapentin and Percocet for chronic pain. Monitor for constipation. Last bowel movement was yesterday 11/05. Overall medically stable. Vital signs remain normal. Continue psychiatric care as per 11/08/16 11:34 Continue current care 11/09/16 12:42 Prepare for D/C tomorrow
[2016-11-09] MEDS: OLANZapine ODT 5 MG TABLET PO SCH (22:10)
[2016-11-09] MEDS: DONEPEZIL 10 MG TABLET PO SCH (22:11)
[2016-11-09] MEDS: SIMVASTATIN 40 MG TABLET PO SCH (22:11)
[2016-11-09] MEDS: LORazepam 0.5 MG TABLET PO SCH (22:11)
[2016-11-10] MEDS: OMEPRAZOLE 20 MG CAPSULE PO SCH (06:46)
[2016-11-10] MEDS: ALBUTEROL/IPRATROPIUM 2.5mg-0.5mg/3ml NEB AEROSOL SCH (06:54)
[2016-11-10] MEDS: BUDESONIDE INH.SOLN 0.5mg/2ml NEB IH SCH (06:54)
[2016-11-10] MEDS: MULTI-VITAMIN + MINERAL TABLET PO SCH (08:09)
[2016-11-10] MEDS: ESCITALOPRAM 20 MG TABLET PO SCH (08:09)
[2016-11-10] MEDS: SALINE 0.65% NASAL SPRAY 44 ML BOTTLE EA NOSTRIL SCH (08:09)
[2016-11-10] MEDS: Oxycodone/Apap 10/325 1 TAB PO SCH (08:09)
[2016-11-10] MEDS: CALCIUM POLYCARBOPHIL 625 MG TABLET PO SCH (08:09)
[2016-11-10] MEDS: SENNA + DOCUSATE TABLET PO SCH (08:09)
[2016-11-10] MEDS: ASPIRIN 81 MG CHEWABLE TABLET PO SCH (08:09)
[2016-11-10] MEDS: CYANOCOBALAMIN (B-12) 500mcg TABLET PO SCH (08:10)
[2016-11-10] MEDS: Venlafaxine XR 37.5 MG CAPSULE (24hr) PO SCH (08:10)
[2016-11-10] MEDS: OMEGA-3 ACID ESTERS 1 GM CAPSULE PO SCH (08:10)
[2016-11-10] MEDS: GABAPENTIN 300 MG CAPSULE PO SCH (08:10)
[2016-11-10] MEDS: LAMOTRIGINE 100 MG TABLET PO SCH (08:11)
[2016-11-10 08:28] VITALS: BP 148/73; PULSE 103; RESP 16; TEMP 97; O2SAT 94
--- NOTE | 2016-11-10 08:38 | Discharge Summary ---
Discharge Plan - Med Rec/Dispo Referrals/Follow Up: Santiago Coyne [Other] (MECHELLE Copeland on 11/11/16 at 3:30 pm. for Mental Health follow-up. [facility] [address] [place] [address] ) Stacey Esparza DO [Family Provider] - (Hospital follow-up on 11/20/16 at 5:[address] [place] [address] ) Additional Instructions: Reasons for Admission: Discharge Diagnosis: IN CASE OF PSYCHIATRIC EMERGENCY, CONTACT GENERATIONS STAFF AT [phone] ( available 24 hrs daily). Prescriptions: New Oxycodone/APAP 10/325 [Percocet 10/325] 1 tab PO ,15, #45 Calcium Polycarbophil [Fiber-Lax] 625 mg PO BID Gabapentin [Neurontin] 300 mg PO TID cap Continue Acetaminophen 650 mg PO Q6H PRN PRN Reason: Pain Aspirin Chewable [ASA] 81 mg PO DAILY [place]-3/Dha/Epa/Fish Oil [[place]-3 Fish Oil 1,000 mg Sfgl] 1,000 mg PO DAILY Multi-Vitamin + Mineral [Therapeutic - M] 1 tab PO DAILY Budesonide 0.5 mg IH BID Albuterol/Ipratropium [Duoneb] 1 unit AEROSOL QID Simvastatin [Zocor] 40 mg PO HS Omeprazole [Prilosec] 1 cap PO ACB Cyanocobalamin (B-12) [Vit. B-12] 500 mcg PO DAILY Discontinued Oxycodone HCl 10 mg PO TID PRN PRN Reason: Pain No Action Donepezil [Aricept] 10 mg PO HS Lamotrigine [Lamictal] 1 tab PO BID Escitalopram [Lexapro] 20 mg PO DAILY - Disposition 01 Discharged Home, Self-Care
--- NOTE | 2016-11-10 08:48 | Discharge Instructions ---
Discharge Plan - Med Rec/Dispo Referrals/Follow Up: Santiago Coyne [Other] (MECHELLE Copeland on 11/11/16 at 3:30 pm. for Mental Health follow-up. [facility] [address] [place] [address] ) Stacey Esparza DO [Family Provider] - (Hospital follow-up on 11/20/16 at 5:[address] [place] [address] ) Additional Instructions: Reasons for Admission: Discharge Diagnosis: IN CASE OF PSYCHIATRIC EMERGENCY, CONTACT GENERATIONS STAFF AT [phone] ( available 24 hrs daily). Prescriptions: New Oxycodone/APAP 10/325 [Percocet 10/325] 1 tab PO ,15, #45 Calcium Polycarbophil [Fiber-Lax] 625 mg PO BID Gabapentin [Neurontin] 300 mg PO TID cap Continue Acetaminophen 650 mg PO Q6H PRN PRN Reason: Pain Aspirin Chewable [ASA] 81 mg PO DAILY [place]-3/Dha/Epa/Fish Oil [[place]-3 Fish Oil 1,000 mg Sfgl] 1,000 mg PO DAILY Multi-Vitamin + Mineral [Therapeutic - M] 1 tab PO DAILY Budesonide 0.5 mg IH BID Albuterol/Ipratropium [Duoneb] 1 unit AEROSOL QID Simvastatin [Zocor] 40 mg PO HS Omeprazole [Prilosec] 1 cap PO ACB Cyanocobalamin (B-12) [Vit. B-12] 500 mcg PO DAILY Discontinued Oxycodone HCl 10 mg PO TID PRN PRN Reason: Pain No Action Donepezil [Aricept] 10 mg PO HS Lamotrigine [Lamictal] 1 tab PO BID Escitalopram [Lexapro] 20 mg PO DAILY - Disposition 01 Discharged Home, Self-Care
--- NOTE | 2016-11-10 09:16 | Extended Care Facility Orders ---
Admission Orders Admit to:: Jail Allergies/Adverse Reactions: Allergies No Known Drug Allergies Allergy (Verified 10/31/16 13:12) aspirin Adverse Reaction (Mild, Verified 10/23/16 02:19) Nausea pt reports only in high doses, pt routinely takes 81mg daily codeine Adverse Reaction (Unknown, Verified 10/23/16 02:20) Nausea Admitting Diagnosis: Major Neuro Cognitive Disorder with Behavioral disturbance. 2. MDD recurrent severe 3. 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 SNF inpatient care is necessary for the following reasons - Additional Information Referrals: Santiago Coyne [Other] (MECHELLE Copeland on 11/11/16 at 3:30 pm. for Mental Health follow-up. [facility] [address] [place] [address] ) Stacey Esparza DO [Family Provider] - (Hospital follow-up on 11/20/16 at 5:00 pm. [facility] [facility] [place] [address] )
--- NOTE | 2017-01-03 17:06 | Neuropsychiatric Disch Summary ---
Discharge Information Date of admission: 10/22/16 20:00 Attending Physician: Verito Jackson MD Primary care physician: Stacey Esparza DO Consults: 10/22/16 23:14 Case Management Consult [CONS] Routine Reason For Exam: medical management Physician Consult [CONS] Routine Consulting Provider: Darnell Suarez Reason For Exam: medical management Ordering Provider has Notified Hatch Supervisor: No 10/23/16 01:28 Physician Consult [CONS] Routine Consulting Provider: Zeynep Jo Reason For Exam: hx seizures Ordering Provider has Notified Hatch Supervisor: No - Discharge Diagnosis Discharge Diagnosis: Major Neurocognitive Disorder with Behavioral Disturbance - Laboratory Labs: 11/03/16 04:48 11/03/16 04:48 Date of Admission: 10/22/16 20:00 History of Present Illness: Patient is a 75-year-old , retired male who was admitted to [facility] on 10/22/16 due to SI and morbid statements. Patient's reports increasing depression over past 6 months, loss of interest/enjoyment in things. Patient lives with in [place]. He was found on tracks by [place] police and said he wanted to ride the train. Shortly after he had a seizure, so was taken to [facility] and admitted. CT of head was negative, MRI of head reportedly negative for stroke - positive for mild atrophy, moderate small vessel ischemic disease. Patient has past diagnoses of dementia, depression, a seizure disorder (not well -controlled, 4 SZs in past 3 months), lung cancer s/p chemotherapy and CAD. Was previously being seen by dr. Berrios and released from his care ~6 months ago. On interview, patient is cooperative but restricted affect and cannot relay meaningful history. He is able to say that he feels down/depressed and that he doesn't have any desire to live anymore. When asked about harming others, he answers yes to his [id number] (who was recently ill and taken off of life support, was an alcoholic). However, he made a comment to about wanting to go to [facility] and take his with him. states that he had recurrent depression in the past and was hospitalized at [facility] in the past for depression, but he has never had any suicide attempts to her knowledge. She denies any history of manic behavior. reports he is sensitive to sounds but it is unclear if he has had any AH. Patient and moved here in 2009 to be close to son but he has taken some of their money and moved out of state; they have a limited support system now. reports that they do not have any money left to move back somewhere else and do not have many friends. PCP: Dr. Luciana Esparza SLUMS: 5 upon admission Psychiatric ROS: positive for impulsivity/wandering, depression, decreased energy, anhedonia, hopelessness, sensitivity to sound - unclear whether having AH per , decreased appetite and weight loss, morbid statements. Patient is sleeping well overnight. Hospital Course This is a general summary of the patient's hospital course. For more details refer to the complete medical record. Hospital course: 10/23/16 15:54 Agree with admission 1. Records reviewed from [facility] -mild hypokalemia and mild KADEN were corrected -CT head and MRI brain did not show acute findings 2. Sz d/o -monitor and continue lamictal -consider increasing antiepileptics -consider neuro consult 3. IBS - reports vomiting and diarrhea and weight loss -check prealbumin -monitor intake 4. chronic conditions - CAD, HLD, COPD, BPH, normocytic anemia -continue home meds & monitor 5. Lung cancer - s/p radiation and chemo (2014) 6. Provide safe, supportive environment 10/25/16- Medical consult Victor Manuel is resting quietly. Percocet resumed Pt is c/o some diarrhea and incontinence on admission. 1 BM documented since admission. Recent CT of head and MRI was negative for mets per H&P (done @ [facility]) Sz DO- he appears to have small seizures vs. myoclonus during sleep. He is on Lamictal. Dr. Boyer has been consulted. Could consider adding Depakote. Need to avoid Keppra as it can exacerbate anger/mood disturbance. 10/27/16 Constipation (though hx of diarrhea and IBS) -BM on 10/24 x1 (moderate sized liquid stool) -ask nursing staff to check for fecal impaction -dulcolax suppository & start Senna plus BID -abdomen benign & good PO intake [facility] w/u -lipid panel: relatively normal -vit B12, folate, TSH, prealbumin: normal -RPR nonreactive Psychiatry -Dr. Krehbiel started Risperidone and lorazepam 10/31/16 15:15 Constipation -Moderate formed bowel movement on 10/29/16 Chronic medical conditions overall are stable with the exception of occasional mild tachycardia. Psychiatric note reviewed. Suspect pain is a major contributor to depression and Aspercreme has been ordered. 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 Will add low dose Gabapentin TID for pain. May need to up-titrate. This will help with sz. px as well. Scheduled Percocet is noted as well. *Lung Ca- chronic,inoperative. *COPD- Isolated low sats. He does not appear SOA. Continue nebulized medications. Will repeat labs today. Concern for UTI on last UA- reassess UA today. Overall, he appears well medically. Will continue to follow. 11/06/16 11:20 Continue with gabapentin and Percocet for chronic pain. Monitor for constipation. Last bowel movement was yesterday 11/05. Overall medically stable. Vital signs remain normal. Continue psychiatric care as per 11/08/16 11:34 Continue current care 11/09/16 12:42 Prepare for D/C tomorrow Time spent with patient: less than 15 minutes Discharge Plan - Med Rec/Dispo Referrals/Follow Up: Santiago Coyne [Other] (MECHELLE Copeland on 11/11/16 at 3:30 pm. for Mental Health follow-up. [facility] [address] [place] [address] ) Stacey Esparza DO [Family Provider] - (Hospital follow-up on 11/20/16 at 5:00 pm. [facility] [address] [facility]. [place], [place] [id number] ) Additional Instructions: Reasons for Admission: Patient was found on [place] tracks [place] his home city. Attempted suicide. Patient is also with increased confusion, and could not be safe at home. Discharge Diagnosis:Major Depressive Disorder Recurrent Severe IN CASE OF PSYCHIATRIC EMERGENCY, CONTACT GENERATIONS STAFF AT [phone] ( available 24 hrs daily). Prescriptions: New Oxycodone/APAP 10/325 [Percocet 10/325] 1 tab PO , #45 Calcium Polycarbophil [Fiber-Lax] 625 mg PO BID Gabapentin [Neurontin] 300 mg PO TID cap Continue Acetaminophen 650 mg PO Q6H PRN PRN Reason: Pain Aspirin Chewable [ASA] 81 mg PO DAILY [place]-3/Dha/Epa/Fish Oil [[place]-3 Fish Oil 1,000 mg Sfgl] 1,000 mg PO DAILY Multi-Vitamin + Mineral [Therapeutic - M] 1 tab PO DAILY Budesonide 0.5 mg IH BID Albuterol/Ipratropium [Duoneb] 1 unit AEROSOL QID Simvastatin [Zocor] 40 mg PO HS Omeprazole [Prilosec] 1 cap PO ACB Cyanocobalamin (B-12) [Vit. B-12] 500 mcg PO DAILY Discontinued Oxycodone HCl 10 mg PO TID PRN PRN Reason: Pain No Action Donepezil [Aricept] 10 mg PO HS Lamotrigine [Lamictal] 1 tab PO BID Escitalopram [Lexapro] 20 mg PO DAILY - Disposition 03 To SN[facility] ([facility])
== END 2016-11-10 12:15 | DRG 884 ==
LOC: GEN 20:00
PROVIDERS: ADMIT Psychiatry & Neurology Psychiatry; ATTEND Psychiatry & Neurology Psychiatry